=== PATIENT | male | born 1965 | race Caucasian/White ===

== ENCOUNTER 2020-02-10 10:36 | Outpatient (REF) | payer OTHER, SELFPAY ==
--- NOTE | 2020-02-10 10:38 | XR_ITS ---
EXAMINATION: XR KNEE, RIGHT XR KNEE, BILATERAL CLINICAL INFORMATION: Pain in right knee COMPARISON: 12/02/2018 TECHNIQUE: AP standing view of both knees. Lateral and sunrise views of the right knee. FINDINGS: Right knee: No fracture or subluxation. There is severe medial compartment joint space narrowing, similar to prior. Prominent tricompartmental marginal osteophytes. Small joint effusion noted. Overall similar appearance to previous. Left knee: On this single frontal view there is no fracture or subluxation. Severe medial compartment joint space narrowing with medial and lateral marginal osteophytes. XR/XR knee standing BI IMPRESSION: Advanced tricompartmental degenerative changes of the right knee, greatest at the medial compartment with severe narrowing. Small joint effusion. Similar to previous. Advanced degenerative changes of the left knee on this single view, similar to prior.
--- NOTE | 2020-02-10 10:38 | XR_ITS ---
EXAMINATION: XR KNEE, RIGHT XR KNEE, BILATERAL CLINICAL INFORMATION: Pain in right knee COMPARISON: 12/02/2018 TECHNIQUE: AP standing view of both knees. Lateral and sunrise views of the right knee. FINDINGS: Right knee: No fracture or subluxation. There is severe medial compartment joint space narrowing, similar to prior. Prominent tricompartmental marginal osteophytes. Small joint effusion noted. Overall similar appearance to previous. Left knee: On this single frontal view there is no fracture or subluxation. Severe medial compartment joint space narrowing with medial and lateral marginal osteophytes. XR/XR knee RT 3V IMPRESSION: Advanced tricompartmental degenerative changes of the right knee, greatest at the medial compartment with severe narrowing. Small joint effusion. Similar to previous. Advanced degenerative changes of the left knee on this single view, similar to prior.
== END 2020-02-10 10:37 | disposition home or self-care (01) ==
LOC: HO.HOSX 10:36
PROVIDERS: Visit Provider Physician Assistant
DX: M17.0 Bilateral primary osteoarthritis of knee (principal)
CPT/HCPCS: 20610; 73562; 73565; J1020; J1100

== ENCOUNTER → 2020-06-21 12:31 | Outpatient (BNVA) | payer OTHER, SELFPAY | PROVIDERS: PCP Nurse Practitioner Family; Visit Provider Physician Assistant | DX: M17.11 Unilateral primary osteoarthritis, right knee (principal) | CPT/HCPCS: 20610; J1040 ==

== ENCOUNTER → 2020-08-04 13:33 | Outpatient (BNVA) | payer OTHER, SELFPAY | PROVIDERS: PCP Nurse Practitioner Family; Visit Provider Physician Assistant | DX: M17.12 Unilateral primary osteoarthritis, left knee (principal) | CPT/HCPCS: 20610; J1040 ==

== ENCOUNTER 2020-09-18 06:03 | Outpatient (REF) | payer OTHER, SELFPAY ==
--- NOTE | ~2020-09-18 | CT_ITS ---
EXAMINATION: CT ABDOMEN AND PELVIS WITH CONTRAST CLINICAL INFORMATION: Ventral hernia COMPARISON: None TECHNIQUE: Multidetector volumetric images were obtained from the superior aspect of the liver through the pubic symphysis following administration 85 mL of Omnipaque 350 intravenous contrast. Sagittal and coronal reformatted images were obtained on the technologist's workstation. Oral contrast: Yes This CT examination was performed using dose optimization techniques as appropriate, variously including the following: *Automated exposure control *Adjustment of mA and/or kV according to patient size (this includes techniques or standardized protocols for targeted exams where dose is matched to indication/reason for exam; i.e. extremities or head) *Use of iterative reconstruction technique DLP: 1121 mGy-cm FINDINGS: LUNG BASES: The visualized lung bases are unremarkable. LIVER, GALLBLADDER, AND BILIARY TREE: The liver is low in attenuation suggestive of fatty infiltration. The gallbladder is unremarkable with no evidence of radiopaque gallstones, gallbladder wall thickening, or obvious pericholecystic inflammatory changes. PANCREAS: Unremarkable. SPLEEN: Unremarkable. ADRENAL GLANDS: Unremarkable. KIDNEYS AND URETERS: There is a 1.5 cm left renal cyst. No imaging follow-up is indicated. The kidneys are otherwise unremarkable. BLADDER: Unremarkable. GASTROINTESTINAL TRACT: There is mild diverticulosis of the colon. There is a duodenal diverticulum adjacent to the head of the pancreas. The small and large bowel are otherwise unremarkable. The appendix is unremarkable. ABDOMINAL WALL: No significant hernia is appreciated. LYMPH NODES: Normal. VASCULAR: Unremarkable. PELVIC VISCERA: Unremarkable. OSSEOUS STRUCTURES: There are degenerative changes of the spine. CT/CT abdomen pelvis w con IMPRESSION: No hernia seen. Fatty liver. Diverticulosis.
[2020-09-18 07:25] LABS: Alanine Aminotransferase 30 U/L (0-40); Albumin Level 4.2 g/dL (3.5-5.0); Alkaline Phosphatase 107 U/L (39-117); Anion Gap 12 (12-20); Aspartate Amino Transferase 19 U/L (5-37); Bilirubin Total 0.2 mg/dL (0.0-1.0); Blood Urea Nitrogen 20 mg/dL (9-16); Carbon Dioxide 25 mmol/L (22-29); Chloride 108 mmol/L (96-108); Cholesterol 180 mg/dL; Estimated Glomerular Filt Rate > 60; Glucose Fasting 109 mg/dL (60-99); HDL Cholesterol 34 mg/dL; LDL Cholesterol Calculated 72 mg/dl; Sodium 141 mmol/L (135-145); Total Protein 6.6 g/dL (6.5-8.0); Triglycerides 370 mg/dL
[2020-09-18 07:48] LABS: Prostate Specific Antigen Scr 0.32 ng/mL (<0.05-4.0); TSH reflex Free T4 1.08 uIU/mL (0.32-4.0)
[2020-09-18] MEDS: iohexoL 350 MG/ML 100 ML INFUS..BTL IV (09:29)
== END 2020-09-18 06:04 | disposition home or self-care (01) ==
LOC: HO.CT 06:03
PROVIDERS: PCP Nurse Practitioner Family; Visit Provider Nurse Practitioner Family
DX: Z00.00 Encounter for general adult medical examination without abnormal findings (principal); Z12.5 Encounter for screening for malignant neoplasm of prostate; K43.9 Ventral hernia without obstruction or gangrene
CPT/HCPCS: 36415; 74177; 80053; 80061; 84153; 84443; Q9967

== ENCOUNTER → 2021-02-22 10:31 | Outpatient (BNVA) | payer OTHER, SELFPAY | PROVIDERS: PCP Nurse Practitioner Family; Visit Provider Physician Assistant | DX: S49.82XA Other specified injuries of left shoulder and upper arm, initial encounter (principal); X50.0XXA Overexertion from strenuous movement or load, initial encounter | CPT/HCPCS: 73030; 99203 ==

== ENCOUNTER → 2021-03-01 14:54 | Outpatient (BNVA) | payer OTHER, SELFPAY | PROVIDERS: Visit Provider Physician Assistant | DX: S49.92XD Unspecified injury of left shoulder and upper arm, subsequent encounter (principal); X58.XXXD Exposure to other specified factors, subsequent encounter | CPT/HCPCS: 99213 ==

== ENCOUNTER → 2021-03-15 14:33 | Outpatient (BNVA) | payer OTHER, SELFPAY | PROVIDERS: Visit Provider Physician Assistant | DX: S49.92XD Unspecified injury of left shoulder and upper arm, subsequent encounter (principal); X58.XXXD Exposure to other specified factors, subsequent encounter | CPT/HCPCS: 99213 ==

== ENCOUNTER 2021-03-22 05:32 | Outpatient (REF) | payer OTHER, SELFPAY ==
--- NOTE | ~2021-03-22 | XR_ITS ---
EXAMINATION: XR SHOULDER, LEFT CLINICAL INFORMATION: Pain in left shoulder COMPARISON: 02/22/2021 TECHNIQUE: Three views of the left shoulder. FINDINGS: No displaced fracture. Moderate degenerative change in the glenohumeral joint with cartilage space loss and bony osteophyte formation. Severe degenerative change in the AC joint with joint space loss and bony spurring. Soft tissues unremarkable. Visualized left lung are clear. XR/XR shoulder LT min 2V IMPRESSION: Severe AC joint degenerative change. Moderate degenerative change in the glenohumeral joint.
== END 2021-03-22 05:33 | disposition home or self-care (01) ==
LOC: HO.HOSX 05:32
PROVIDERS: Visit Provider Physician Assistant
DX: M25.512 Pain in left shoulder (principal); M19.012 Primary osteoarthritis, left shoulder; S46.002A Unspecified injury of muscle(s) and tendon(s) of the rotator cuff of left shoulder, initial encounter; X50.0XXA Overexertion from strenuous movement or load, initial encounter; Y93.9 Activity, unspecified; Y92.69 Other specified industrial and construction area as the place of occurrence of the external cause; Y99.0 Civilian activity done for income or pay; I10 Essential (primary) hypertension; E78.5 Hyperlipidemia, unspecified; A69.20 Lyme disease, unspecified; F17.210 Nicotine dependence, cigarettes, uncomplicated; J30.2 Other seasonal allergic rhinitis; Z82.49 Family history of ischemic heart disease and other diseases of the circulatory system
CPT/HCPCS: 73030; 99212

== ENCOUNTER 2021-03-26 15:00 | Outpatient (RCR) | payer OTHER, SELFPAY ==
--- NOTE | 2021-02-28 15:50 | MHC.PT.EP ---
[facility] [place] Office [place] Office [place] Office [address] Apurva Zavala [address] [phone] F: [phone] F: [phone] F: [phone] F: [phone] Physical Therapy Plan of Care Date of Evaluation: Date of Surgery: n/a Diagnosis: L shoulder injury Assessment: Patient is a 55 year old male presenting to PT with complaints of pain in his L shoulder. Pt reports onset of pain began 02/20/2021 due to the handle of a bucket breaking while he was carrying it. He presents today with impairments in pain, shoulder ROM, shoulder strength, and posture. 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 Pt expresses mcc goal of getting back to PLOF, and is motivated to work towards this in PT. Clinical presentation today is most consistent with signs and sx associated with L shoulder strain with possible RC involvement and pt will benefit from skilled PT to address the following problems and impairments noted upon evaluation: pain, shoulder ROM, shoulder strength, and posture. These problems limit the patient with the following functional activities: work (mopping, dusting, lifting) and ADLs (dressing). The prescribed treatment plan of care is medically necessary. Co-morbidities of HTN were identified and taken into considerations of plan of care. Pt was educated on HEP, role of PT, prognosis, POC. Frequency and Duration: The patient will be seen 2 x week x 4 weeks Short Term Goals: Pt will demonstrate improved L shoulder AROM in all directions with within 10 degrees of the R in 2 weeks. Pt will demonstrate improved L shoulder strength by 1/3 MMT for improved UE strength in 2 weeks. Pt will demonstrate improved postural awareness by sitting with biomechanically correct posture without cues throughout session to improve overall postural function in 2 weeks. Coat Padder Goals: Pt will demonstrate improved SPADI by 13 points in 4 weeks for improved UE functional mobility. Pt will demonstrate ability to complete all mopping and dusting activities with min to no pain in 4 weeks for improved tolerance to work. Pt will demonstrate improved ability to lift with min to no pain in 4 weeks for improved tolerance to work. Pt will demonstrate ability to complete all dressing ADLs with min to no pain in 4 weeks for return to PLOF. Treatment Plan: Modalities to reduce pain, spasms and effusion. Manual therapy to restore motion and function. Therapeutic exercise to improve strength and flexibility. Neuromuscular re-education for posture and balance. Therapeutic activities to return to functional activities of daily living. Electronically signed by: Katie Moreau, PT, DPT, ATC Please sign and return to therapist. Thank you for your referral.
--- NOTE | 2021-03-29 11:49 | MHC.PT.DC ---
[facility] [place] Office [place] [employer] [facility] [place] Office [address] Jenn[address] Zavala [address] [phone] F: [phone] F: [phone] F: [phone] F: [phone] Physical Therapy Discharge Report Diagnosis: L shoulder injury Date of Surgery: n/a Date of Evaluation: 02/28/21 Date of Discharge: 03/29/21 Treatments to Date: 7 Cancellations to Date: 1 No Shows to Date: 1 Discharge Status: Patient Elected to Stop Discharge Summary: Pt independent w/HEP but con't to demonstrate limited ROM and will be getting MRI. Therapy on hold until results of MRI confirmed if surgical intervention is required. Electronically signed by: Katie Ivey PT, DPT Please sign and return to therapist. Thank you for your referral.
== END 2021-03-29 11:49 | disposition home or self-care (01) ==
LOC: HO.PT 15:00
PROVIDERS: Visit Provider Physician Assistant
DX: S49.92XD Unspecified injury of left shoulder and upper arm, subsequent encounter (principal)
CPT/HCPCS: 97110; 97140; 97161; 97530

== ENCOUNTER 2021-05-04 15:38 | Outpatient (REF) | payer OTHER, SELFPAY | END 2021-05-04 15:39 | disposition home or self-care (01) | LOC: HO.MRI 15:38 | PROVIDERS: Visit Provider Physician Assistant | DX: Z13.89 Encounter for screening for other disorder (principal) ==

== ENCOUNTER → 2021-06-28 10:35 | Outpatient (BNVA) | payer OTHER, SELFPAY | PROVIDERS: PCP Nurse Practitioner Family; Visit Provider Physician Assistant | DX: M17.11 Unilateral primary osteoarthritis, right knee (principal); I10 Essential (primary) hypertension; E78.5 Hyperlipidemia, unspecified; F17.200 Nicotine dependence, unspecified, uncomplicated; J30.2 Other seasonal allergic rhinitis | CPT/HCPCS: 20610; J1040 ==

== ENCOUNTER 2022-11-04 06:07 | Outpatient (REF) | payer OTHER, SELFPAY ==
[2022-11-04 06:17] LABS: MANUAL DIFF FLAG NO
[2022-11-04 07:16] LABS: Basophils Percent Auto 0.6 % (0-2); Eosinophils Absolute Auto 0.2 X10*3/uL (0.0-0.4); Eosinophils Percent Auto 3.2 % (0-4); Hematocrit 47.9 % (42.0-52.0); Hemoglobin 15.4 g/dl (14.0-18.0); Imm Gran Abs Auto 0.03 X10*3/uL (0.00-0.03); Imm Gran Pct Auto 0.5 % (0.0-0.4); Lymphocytes Absolute Auto 1.9 X10*3/uL (1.2-4.9); Lymphocytes Percent Auto 30.2 % (20-40); Mean Corpuscular HGB Conc 32.2 g/dl (31.0-36.0); Mean Corpuscular Hemoglobin 26.9 pg (27.0-33.0); Mean Corpuscular Volume 83.7 fL (80.0-98.0); Mean Platelet Volume 10.9 fL (9.4-12.4); Monocytes Absolute Auto 0.5 X10*3/uL (0.1-1.2); Monocytes Percent Auto 7.7 % (2-11); Neutrophils Absolute Auto 3.6 x10*3/uL (2.0-8.3); Neutrophils Percent Auto 57.8 % (45-73); Platelet Count 154 X10*3/uL (160-400); Red Blood Count 5.72 X10*6/uL (4.60-5.80); Red Cell Distribution Width 13.4 % (11.0-16.0); White Blood Count 6.2 X10*3/uL (4.8-10.8)
[2022-11-04 10:28] LABS: Anion Gap 15 (12-20); Blood Urea Nitrogen 15 mg/dL (9-16); Calcium 9.2 mg/dL (8.4-10.2); Carbon Dioxide 27 mmol/L (22-29); Chloride 104 mmol/L (96-108); Cholesterol 180 mg/dL; Estimated Glomerular Filt Rate > 60; Glucose Fasting 132 mg/dL (60-99); HDL Cholesterol 34 mg/dL; LDL Cholesterol Calculated 91 mg/dl; Potassium 4.5 mmol/L (3.3-5.1); Sodium 141 mmol/L (135-145); TSH reflex Free T4 1.84 uIU/mL (0.32-4.0); Triglycerides 278 mg/dL
== END 2022-11-04 06:08 | disposition home or self-care (01) ==
LOC: HO.LAB 06:07
PROVIDERS: PCP Nurse Practitioner Family; Visit Provider Physician Assistant Medical
DX: I10 Essential (primary) hypertension (principal)
CPT/HCPCS: 36415; 80048; 80061; 84443; 85025

== ENCOUNTER 2022-11-07 16:18 | Outpatient (AMB) | payer OTHER, SELFPAY ==
--- NOTE | 2022-11-07 16:35 | MHC.PC.OV ---
Vital Signs 11/07/22 16:36 Height 5 ft 6 in Weight 315 lb BMI 50.8 BP 158/80 H Blood Pressure Location Rt brachial Position Sitting Pulse 94 Pulse Source Pulse Oximeter Pulse Oximetry (%) 96 Oxygen Delivery Method Room Air Intake Visit Reasons: Annual PE Allergies SEASONAL ALLERGIES Allergy (Intermediate, Uncoded 11/07/22 16:39) RUNNY NOSE NASAL CONGESTION Medication List - Last Reconciled 11/07/22 by CECY Iglesias celecoxib 200 mg PO BID 30 days diclofenac sodium 1% 2 grams topical QID lisinopril 40 mg PO DAILY 30 days ofloxacin 0.3% 2 drps ophthalmic (eye) .4 times Tobacco use date assessed: 11/07/22 Dental Screening Dental Screen Date: 11/07/22 Did you have a dental visit in the last 12 months?: No Did you have a dental problem in the last 6 months where you did not have access to dental care?: No Was dental information given to patient?: No HPI Annual PE HPI Details Pt is here for a PE. Labs were already performed. Colon screen is up to date. Due for PSA, will order. reports dribbling with urinating, nocturia, and reports not completely emptying his bladder. FBS was noted to be 132, though pt reported having a snack . Reinforced importance of 'fasting for 12 hrs, with water only . Pt will repeat this. HTN: increasing lisinopril from 20mg to 40mg. Hx of elevated ferritin, will recheck. [facility] Medical History (Updated 11/07/22 @ 16:59 by CECY Iglesias) Bronchitis Elevated ferritin HTN (hypertension) Hyperlipemia Lyme disease Surgical History History of mandibular surgery Family History Father CVD (cardiovascular disease) History of heart attack Mother No problems noted. Brother No problems noted. Sister No problems noted. Sister No problems noted. Sister No problems noted. 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 [employer] Cognitive needs: No Hearing needs: No Vision needs: No Review of Systems Const Denies chills and Denies fever(s) Eyes Denies blurry vision ENT Denies vertigo, Denies dizziness and Denies sore throat Card Denies chest pain at rest, Denies chest pain with activity, Denies diaphoresis, Denies dyspnea and Denies dyspnea on exertion Resp Denies cough, Denies dyspnea, Denies dyspnea on exertion and Denies wheezing GI Denies abdominal pain, Denies melena, Denies hematochezia, Denies constipation, Denies diarrhea and Denies loose stools Denies hematuria Musc Denies numbness and Denies tingling Skin/Breast Denies lesions Neuro Denies vertigo, Denies dizziness, Denies numbness and Denies tingling Psych Denies anxiety, Denies depression, Denies homicidal ideation, Denies suicidal ideation and Denies other (substance abuse) Aller/Immun Denies wheezing Physical exam (Primary Care) Vital Signs: Last Vital Signs Pulse 94 11/07/22 16:36 BP 158/80 H 11/07/22 16:36 Pulse Ox 96 11/07/22 16:36 Oxygen Delivery Method Room Air 11/07/22 16:36 BMI result Body Mass Index 50.8 Tobacco/Smoking Status: Tobacco use Status Tobacco use date assessed 11/07/22 11/07/22 16:42 Patient Tobacco Use Status Current everyday Tobacco 11/07/22 16:42 e-Cigarette/Vaping Use Former Use 11/07/22 16:42 Const General: cooperative Nutritional Appearance: obese morbidly obese Orientation/consciousness: patient oriented x3 HENMT Head: Yes normal to inspection, Yes normocephalic and Yes atraumatic Ears: TM's normal bilaterally Eyes General: appearance normal, both eyes and all related structures Alignment and Position: alignment normal and position normal Neck Neck: Yes normal visual inspection and Yes no lymphadenopathy Thyroid: Thyroid normal Resp Effort & Inspection: normal respiratory effort Auscultation: clear to auscultation bilaterally Cardio Rate: regular rate Rhythm: regular rhythm Heart sounds: S1 normal heart sound present, S2 normal heart sound present and no murmurs GI Palpation (GI): Soft to palpation and nontender Auscultation: normal bowel sounds Other: MAYRA: difficult to perform. Male General Exam: Yes normal external exam Penis: normal penis Scrotum: scrotum normal, testes descended bilaterally and no inguinal hernias Testes: no testicular mass Skin Rashes: no rashes Neuro General: patient oriented x3, moves all extremities, no focal motor deficits and deep tendon reflexes 2+ bilaterally Romberg Test: Negative Psych Appearance: grossly normal Mental Status: mental status grossly normal Speech and movement: Normal speech and movement present Affect: normal affect Attitude: cooperative Thought process: Normal thought process present Thought content: Normal thought content present Insight: Good insight present (Psych) Judgement: Good judgement present (Psych) Assessment and Plan Assessment & Plan (1) Physical exam: Code(s): Z00.00 - Encounter for general adult medical examination without abnormal findings (2) Elevated fasting blood sugar: Code(s): R73.01 - Impaired fasting glucose (3) Elevated ferritin: Code(s): R79.89 - Other specified abnormal findings of blood chemistry (4) Screening for prostate cancer: Code(s): Z12.5 - Encounter for screening for malignant neoplasm of prostate Plan The patient agreed to the use of a biomedical engineering professor for this encounter. Scribed for RANDALL Jain- by Francine Bejarano biomedical engineering professor, on 11/07/2022 at 16:55 EST. Orders: Orders Ferritin Today R79.89 - Other specified abnormal findings of blood chemistry IRON PROFILE Today R79.89 - Other specified abnormal findings of blood chemistry Prostate Specific Antigen Scr Today Z12.5 - Encounter for screening for malignant neoplasm of prostate Comprehensive [place]. Panel Fast Today R73.01 - Impaired fasting glucose Medications: Changed From lisinopril 20 mg PO DAILY 30 days 30 tabs 3RF I10 - Essential (primary) hypertension To lisinopril 40 mg PO DAILY 30 tabs 3RF 30 days I10 - Essential (primary) hypertension Coding Level of Care Code Est Pt Prev Care 40-64y(90178) Diagnoses Physical exam Z00.00 Elevated fasting blood sugar R73.01 Elevated ferritin R79.89 Screening for prostate cancer Z12.5
[2022-11-07 16:36] VITALS: BP 158/80; PULSE 94; O2SAT 96; BMI 50.8
== END 2022-11-07 17:29 | disposition home or self-care (01) ==
LOC: HO.HMGC 16:18
PROVIDERS: PCP Nurse Practitioner Family; Visit Provider Nurse Practitioner Family
DX: Z00.00 Encounter for general adult medical examination without abnormal findings (principal); R73.01 Impaired fasting glucose; R79.89 Other specified abnormal findings of blood chemistry; Z12.5 Encounter for screening for malignant neoplasm of prostate
CPT/HCPCS: 99396

== ENCOUNTER 2022-11-12 06:05 | Outpatient (REF) | payer OTHER, SELFPAY ==
[2022-11-12 07:39] LABS: Alanine Aminotransferase 49 U/L (0-40); Albumin Level 4.3 g/dL (3.5-5.0); Alkaline Phosphatase 79 U/L (39-117); Anion Gap 13 (12-20); Aspartate Amino Transferase 33 U/L (5-37); Bilirubin Total 0.6 mg/dL (0.0-1.0); Blood Urea Nitrogen 18 mg/dL (9-16); Calcium 9.3 mg/dL (8.4-10.2); Carbon Dioxide 27 mmol/L (22-29); Chloride 104 mmol/L (96-108); Estimated Glomerular Filt Rate > 60; Glucose Fasting 133 mg/dL (60-99); Iron 104 mcg/dL (45-160); Percent Iron Saturation 37 % (15-50); Potassium 3.8 mmol/L (3.3-5.1); Sodium 140 mmol/L (135-145); Total Iron Binding Capacity 282 mcg/dL (228-428); Total Protein 7.1 g/dL (6.5-8.0); Unsaturated Iron Binding 178 ug/dL
[2022-11-12 07:50] LABS: Prostate Specific Antigen Scr 0.28 ng/mL (<0.05-4.0)
[2022-11-12 07:58] LABS: Ferritin 368 ng/mL (20-250)
== END 2022-11-12 06:06 | disposition home or self-care (01) ==
LOC: HO.LAB 06:05
PROVIDERS: PCP Nurse Practitioner Family; Visit Provider Nurse Practitioner Family
DX: Z12.5 Encounter for screening for malignant neoplasm of prostate (principal); R73.01 Impaired fasting glucose; R79.89 Other specified abnormal findings of blood chemistry
CPT/HCPCS: 36415; 80053; 82728; 83540; 84153

== ENCOUNTER → 2022-12-04 14:30 | Outpatient (REF) | payer OTHER, SELFPAY ==
--- NOTE | 2022-12-04 14:33 | CA_ITS ---
Transthoracic Echocardiogram Patient (Last, First, Middle): Raheem Diaz M Gender: Male Date of : 1965 Age: 57 Procedure Date: 12/04/2022 Procedure Type: Transthoracic Echocardiogram Location: OP Height: 175.26 cm Weight: 142.43 kg BSA: 2.50 m2 Heart Rate: bpm Offset Press Assistant: MOSES/CRISTI Referring MD: Shine Elizabeth [facility] Symptoms: E66.01 - Morbid (severe) obesity due to excess calories Study Quality: Fair ECG Rhythm: Sinus Conclusions: - The left ventricular systolic function is normal. The calculated ejection fraction is 63% by biplane method. - No obvious valvular pathology seen on this study. Findings Procedure Information Contrast agent, definity, is being given per protocol without apparent complications. The quality of the study was technically difficult. The study quality is limited by patients body habitus. Left Ventricle Normal left ventricular cavity size. There is mildly increased left ventricular wall thickness. The left ventricular systolic function is normal. The calculated ejection fraction is 63% by biplane method. There is no evidence of regional wall motion abnormalities. Evidence suggests grade I (mild) diastolic dysfunction. There is moderate septal asymmetric hypertrophy. Right Ventricle Normal right ventricular cavity size and systolic function. Atria Both atria are normal in size. Aortic Valve There is a normal trileaflet aortic valve. There is no aortic valve stenosis. There is trace (trivial) aortic valve regurgitation. Mitral Valve There is mild anterior mitral leaflet thickening. There is no mitral valve regurgitation. There is no mitral valve stenosis. Pulmonic Valve The pulmonic valve is likely normal. Tricuspid Valve Normal tricuspid valve structure. There is trace tricuspid valve regurgitation. Tricuspid regurgitation envelope is inadequate for calculation of right ventricular systolic pressure. Great Vessels The asc aorta is normal in size. Venous The inferior vena cava was not well visualized. The inferior vena cava is normal in size. Pericardium/Pleural There is no evidence of pericardial effusion. Prior Study Comparison No prior study available for comparison. Recommendations, Care & Conclusions No obvious valvular pathology seen on this study. Measurements 2D Linear Measurements IVSd: 1.38 0.6-0.9/0.6-1.0 cm LVIDd: 5.70 3.9-5.3/4.2-5.9 cm LVIDd Index: 2.28 2.4-3.2/2.2-3.1 cm/m2 LVIDs: 3.45 2.0-3.6 cm LVPWd: 1.10 0.7-1.1 cm LA Diam: 3.60 2.7-3.8/3.0-4.0 cm LAIDs Index: 1.44 1.5-2.3 cm/m2 LV Mass: 376.64 67-162/88-224 g LV Mass Index: 150.65 43-95/49-115 g/m2 LVOT Diam: 2.60 3.0+(-)1.3 cm 2D Systolic Function EF 4C: 59.50 >55% EF 2C: 65.40 >55% EF BiP: 62.50 >55% Mitral Valve MV Pk E: 0.77 MV PK A: 0.89 MV Decel Time: 209.00 E/A: 0.90 E'Lateral: 6.64 E'Medial: 5.00 E/E' Med: 15.40 E/E' Lat: 11.60 PHT: 61.00 MVA PHT: 3.61 Decel Wise: 3.69 Aortic Valve AoV Pk Hemal: 1.21 AoV Pk Grad: 6.00 ELAN: 4.85 LVOT LVOT Pk Hemal: 1.12 LVOT Mn Hemal: 0.77 LVOT VTI: 0.22 LVOT Pk Grad: 5.00 LVOT Mn Grad: 3.00 LVOT Diam: 2.60 LVOT Area: 5.31 Diastolic Function MV Pk E: 0.77 MV Pk A: 0.89 E/A: 0.90 E'Medial: 5.00 E/E' Med: 15.40 E' Laterial: 6.64 E/E' Lat: 11.60 Right Ventricle TAPSE (mm): 23.80 TVS' Hemal: 15.90 Tricuspid Valve RA Press: 3.00 Great Vessels Aorta Sinus of Valsalva: 3.10 2.0-3.5 cm Ao Asc: 3.50 2.1-3.4 cm Pulmonary Veins Pulm Vein S/D 1.70 Pulmonary Valve PV Pk Hemal: 1.11 Peak PV Grad: 5.00 Updated in Other Vendor System with Status of Final Denny Smiley MD electronically signed on 12/04/2022 4:37:48 PM with status of Final
== END ==
LOC: HO.CARD 14:30
PROVIDERS: Visit Provider Nurse Practitioner Family
DX: E66.01 Morbid (severe) obesity due to excess calories (principal); G47.33 Obstructive sleep apnea (adult) (pediatric)
CPT/HCPCS: 93306; Q9957

== ENCOUNTER → 2022-12-04 14:33 | Outpatient (BNV) | payer OTHER, SELFPAY | PROVIDERS: Visit Provider Internal Medicine | DX: I34.89 Other nonrheumatic mitral valve disorders (principal) | CPT/HCPCS: 93306 ==

== ENCOUNTER 2023-01-10 | Outpatient (REF) | payer OTHER, SELFPAY | END 2023-01-10 00:01 | disposition home or self-care (01) | LOC: CF | PROVIDERS: Visit Provider Physician Assistant Medical | DX: F17.210 Nicotine dependence, cigarettes, uncomplicated (principal) | CPT/HCPCS: G0296 ==

== ENCOUNTER 2023-01-10 14:39 | Outpatient (AMB) | payer OTHER, SELFPAY ==
--- NOTE | 2023-01-10 07:38 | MHC.OFFVIS ---
Intake Intake Visit Reasons: LDCT SD Allergies SEASONAL ALLERGIES Allergy (Intermediate, Uncoded 11/07/22 16:39) RUNNY NOSE NASAL CONGESTION HPI LDCT SD HPI Details Initial telehealth phone visit for this 57yo smoker with a 20PYH. Patient has been smoking since age 16 for 41 years at 1/2ppd. Now down to 3cig/day . Denies marijuana use. Denies second hand smoke exposure. Reports exposure to chemicals like diesel fumes. 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 . Denies known family history of lung cancer. Denies personal history of cancers. Denies chest CT in last year. . Denies recent travel outside the [place]. Denies recent respiratory illness or recent hospitalization for respiratory issues. Reports testing positive for COVID in 2019. Admits receiving COVID Vaccine. x 2. . Denies fever, chills, new/worsening cough, hemoptysis, hoarseness or dysphagia. Denies significant chest pain, significant dyspnea or unintentional weight loss. Patient Lung Cancer Screening Questionnaire reviewed with patient by provider. . Shared Decision Making Completed. Patient meets criteria. Discussed in detail with patient, the risk vs benefit of LDCT screening. Patient consents to proceed with scan. Discussed smoking cessation. [facility] Medical History (Updated 01/10/23 @ 13:36 by Jenni Edgar PA-C) Family history of cardiovascular disease Elevated ferritin HTN (hypertension) High triglycerides ALPHONSE (obstructive sleep apnea) Morbid obesity Nicotine dependence, cigarettes, uncomplicated Fatty liver History of colon polyps (~2018) Osteoarthritis of both knees History of Lyme disease Surgical History (Updated 12/19/22 @ 12:32 by Jenni Edgar PA-C) History of colonoscopy History of mandibular surgery Family History (Updated 12/19/22 @ 12:35 by Jenni Edgar PA-C) Father CVD (cardiovascular disease) History of heart attack, Onset Age: 50 Mother No problems noted. Brother No problems noted. Sister No problems noted. Sister No problems noted. Sister No problems noted. 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 - Patient meets criteria for LDCT for lung cancer screening purposes and is asymptomatic. - Smoking cessation counseling offered. Patients can always call [phone]. - Will arrange for a LDCT scan of the chest for screening purposes at [facility]. - Risks, benefits, and alternatives were discussed in detail and the patient agrees to proceed. - Risks discussed include but are not limited to: radiation exposure, anxiety during testing and while awaiting results, false negatives, false positives and possibility of additional intervention such as further imaging or surgical procedures for benign disease. - Benefits are obviously detection of lung cancer at an early stage which can lead to improved outcomes. - Discussed the importance of screening program compliance with adherence to yearly LDCT scan as scheduled - or sooner interval scans for personalized screening regimen. - Discussed follow up plan. Our office will send a letter discussing results and if needed set up phone call and office visit based on CT findings. - Patient educated on results categorization and the management decisions for suspicious findings potentially found on the screening LDCT scan. Any patient with a Lung RADS score of 3 or 4 will be reviewed by a multidisciplinary team at [facility] to form a plan of action in regards to scan findings. - If further work up is warranted for a suspicious lung finding this will be followed by the Lung Cancer Screening program in conjunction with the Thoracic Surgery Department at [facility]. - A copy of the office note and LDCT will be sent to the patient's PCP - as well as documentation on any associated further plans of care. - Incidental findings on LDCT are the PCP's responsibility. These findings are indicated with an S finding on the LDCT Assessment. A note discussing the findings will be sent to the PCP who is then responsible for further management. - All questions answered.? Telehealth Telehealth Location of provider rendering services: practice address Location of patient: address on file Patient Identification confirmed using: Name, : Yes Telehealth method: voice only Patient verbally consented to treatment: Yes Patient verbally consented to billing insurance company: Yes Patient informed of any privacy concerns related to visit: Yes Minutes spent on Phone/Video with Pt.: 15 Coding Level of Care Code Lung Cancer Screening G0296 Diagnoses Nicotine dependence, cigarettes, uncomplicated F17.210
== END 2023-01-10 14:40 | disposition home or self-care (01) ==
LOC: HO.HMS 14:39
PROVIDERS: Visit Provider Physician Assistant Medical
DX: F17.210 Nicotine dependence, cigarettes, uncomplicated (principal)
CPT/HCPCS: G0296

== ENCOUNTER 2023-01-21 13:48 | Outpatient (AMB) | payer OTHER, SELFPAY ==
--- NOTE | 2023-01-21 14:09 | A.OFFVIS_ITS ---
Intake Vital Signs 01/21/23 14:10 Height 5 ft 9 in Weight 316 lb 2 oz BMI 46.7 BP 150/90 H Blood Pressure Location Lt brachial Position Sitting Pulse 98 Pulse Source Pulse Oximeter Pulse Oximetry (%) 99 Oxygen Delivery Method Room Air Intake Visit Reasons: I-CHILD PSYCHOLOGIST: ALPHONSE - LVM Intake Note: Npt for ALPHONSE Allergies SEASONAL ALLERGIES Allergy (Intermediate, Uncoded 11/07/22 16:39) RUNNY NOSE NASAL CONGESTION HPI HPI Comments History of Present Illness Details 57 y/o male patient presents for new in- person visit to manage ALPHONSE. Pt was diagnosed with ALPHONSE in 2000 and has been using CPAP. He had receiced new CPAP 10 years ago, but his insurance stopped cover the supplies. The CPAP machine start make weird noise and now he uses his old, original CPAP. It is more than 20 years old. He sleeps well with CPAP and his snoring and daytime sleepiness has improved. He can't sleep without CPAP. He might gained more than 30 lb since the last sleep study. His current home care company is [facility] [facility]. Sleep questionnaire: Have you ever been diagnosed with a sleep disorder? Yes, severe degree of sleep apnea. Have you ever had a sleep study in the past? Yes. Have you ever been treated for a sleep disorder? Yes, CPAP. Do you take medications for a sleep disorder? No. Do you snore? Yes. Do you wake up gasping at night? No with CPAP. Do you have episodes of apneas? Yes. If yes, are they witnessed? Yes. Do you have episodes of nocturnal chest pain or dyspnea? No. Do you have difficulty initiating sleep? No. Do you have difficulty maintaining sleep? No. Do you wake up tired? No with CPAP. Do you have headaches upon awakening? No. Do you wake up with dry mouth or throat? Yes. Do you have GERD? No. Do you have nocturia? Yes, sometimes. Do you have nocturnal leg cramps? No. Do you have symptoms of restless legs? No. Do you act out your dreams? No. Sleep hygiene questionnaire: What is your usual sleep routine? Usual bedtime is at 9:30 -10 pm; Usual wake up time is at 3:30 am. Do you take naps? Sometimes. Is your sleep environment cool, dark, and quiet? Yes. Do you exercise? Yes, sometimes. Do you take caffeine or other stimulants? Coffee in the morning. Do you use electronics in bed? No. What is your work schedule? 5 am to 1 :30 am. Hypersomnolence questionnaire: Do you have daytime tiredness or fatigue? No. Do you easily fall asleep when inactive? No. Have you ever had episodes of sudden weakness? No. Have you ever had episodes of sudden weakness associated with strong emotions? No. PFSH Medical History (Updated 01/21/23 @ 14:35 by Noy Garcia CNP) Family history of cardiovascular disease Elevated ferritin HTN (hypertension) High triglycerides ALPHONSE (obstructive sleep apnea) Morbid obesity Nicotine dependence, cigarettes, uncomplicated Fatty liver History of colon polyps (~2018) Osteoarthritis of both knees History of Lyme disease Surgical History History of colonoscopy History of mandibular surgery Family History Father CVD (cardiovascular disease) History of heart attack, Onset Age: 50 Mother No problems noted. Brother No problems noted. Sister No problems noted. Sister No problems noted. Sister No problems noted. 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 [employer] Cognitive needs: No Hearing needs: No Vision needs: No Review of Systems Const All systems reviewed & are unremarkable except as noted in HPI and below ENT Reports Normal hearing present Neuro Reports Normal hearing present Physical Exam Vital Signs: Last Vital Signs Pulse 98 01/21/23 14:10 BP 150/90 H 01/21/23 14:10 Pulse Ox 99 01/21/23 14:10 Oxygen Delivery Method Room Air 01/21/23 14:10 BMI result Body Mass Index 46.7 Const General: cooperative Nutritional Appearance: obese Orientation/consciousness: patient oriented x3 Neck Neck: Yes full ROM and Yes supple Resp Effort & Inspection: normal respiratory effort and able to speak in complete sentences Neuro General: patient oriented x3 Cranial nerves: Yes Bilaterally intact EOM present, Yes Normal facial strength present, Yes Midline tongue present, Yes Symmetric palate elevation present, Yes Normal hearing present, Yes Ability to bilaterally rotate head present and Yes Ability to bilaterally elevate shoulders present Cognition (Neuro): normal cognition Motor exam (neuro): 5/5 motor strength present throughout, Pronator motor function not present and no tremor noted Psych Appearance: grossly normal Mental Status: mental status grossly normal Speech and movement: Normal speech and movement present Affect: normal affect Attitude: cooperative Assessment & Plan Assessment & Plan (1) ALPHONSE (obstructive sleep apnea): Comment: Had hx of severe degree of sleep apnea. Code(s): G47.33 - Obstructive sleep apnea (adult) (pediatric) (2) Morbid obesity: Comment: (BMI >50 - 10/2022) Code(s): E66.01 - Morbid (severe) obesity due to excess calories Plan Pt is advised to undergo in lab sleep study to assess for sleep apnea. Will f/u with pt after study to discuss results and appropriate treatment options. Continue to use his old CPAP until he has new CPAP. Wt reduction advised. Pt to call with any worsening concerns or questions. Orders: Orders RT PSG in-lab sleep study 01/21/23 E66.01 - Morbid (severe) obesity due to excess calories, G47.33 - Obstructive sleep apnea (adult) (pediatric) Coding Level of Care Code New Pt Level 3 (10919) Diagnoses ALPHONSE (obstructive sleep apnea) G47.33 Morbid obesity E66.01
[2023-01-21 14:10] VITALS: BP 150/90; PULSE 98; O2SAT 99; BMI 46.7
== END 2023-01-21 14:40 | disposition home or self-care (01) ==
PROVIDERS: PCP Nurse Practitioner Family; Visit Provider Nurse Practitioner Family
DX: G47.33 Obstructive sleep apnea (adult) (pediatric) (principal); E66.01 Morbid (severe) obesity due to excess calories
CPT/HCPCS: 99203

== ENCOUNTER → 2023-01-21 13:48 | Outpatient (BNVA) | payer OTHER, SELFPAY | PROVIDERS: PCP Nurse Practitioner Family; Visit Provider Nurse Practitioner Family ==

== ENCOUNTER → 2023-02-09 20:30 | Outpatient (REF) | payer OTHER, SELFPAY | LOC: HO.SL 20:30 | PROVIDERS: PCP Nurse Practitioner Family; Visit Provider Nurse Practitioner Family | DX: G47.33 Obstructive sleep apnea (adult) (pediatric) (principal); E66.01 Morbid (severe) obesity due to excess calories | CPT/HCPCS: 95810 ==

== ENCOUNTER → 2023-02-09 22:56 | Outpatient (BNV) | payer OTHER, SELFPAY | PROVIDERS: PCP Nurse Practitioner Family; Visit Provider Psychiatry & Neurology Neurology | DX: G47.33 Obstructive sleep apnea (adult) (pediatric) (principal) | CPT/HCPCS: 95810 ==

== ENCOUNTER 2023-05-29 13:43 | Outpatient (AMB) | payer OTHER, SELFPAY ==
--- NOTE | 2023-05-29 13:50 | A.OFFVIS_ITS ---
Intake Vital Signs 05/29/23 13:57 Height 5 ft 9 in Weight 313 lb 8 oz BMI 46.3 BP 144/70 H Blood Pressure Location Lt brachial Position Sitting Pulse 90 Pulse Source Pulse Oximeter Pulse Oximetry (%) 95 Oxygen Delivery Method Room Air Intake Visit Reasons: 4month f/u ALPHONSE-LVM Intake Note: Patient presents for 4 month f/u. Allergies SEASONAL ALLERGIES Allergy (Intermediate, Uncoded 11/07/22 16:39) RUNNY NOSE NASAL CONGESTION HPI HPI Comments History of Present Illness Details 57 y/o male patient presents for follow up of sleep study. Pt underwent split night sleep study. The baseline portion of the study was significant for severe degree of sleep apena. The AHI was 85/hr and oxygen winter was 82%. Pt started BiPAP at 20/16 cmH2O. Pt reports he sleeps much better with new BiPAP, wakes up refreshed, feel great in the morning. Daytime tiredness has resolved. The BiPAP compliance and therapy response (02/24/23-05/24/23) reviewed. The usage days 77% and the average usage hours 7 hrs. The AHI was 4.7/hr. Pt still has his old CPAP and uses the old CPAP when he travels. [facility] Medical History (Updated 01/21/23 @ 14:35 by Noy Garcia CNP) Family history of cardiovascular disease Elevated ferritin HTN (hypertension) High triglycerides ALPHONSE (obstructive sleep apnea) Morbid obesity Nicotine dependence, cigarettes, uncomplicated Fatty liver History of colon polyps (~2018) Osteoarthritis of both knees History of Lyme disease Surgical History History of colonoscopy History of mandibular surgery Family History Father CVD (cardiovascular disease) History of heart attack, Onset Age: 50 Mother No problems noted. Brother No problems noted. Sister No problems noted. Sister No problems noted. Sister No problems noted. 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 [employer] Cognitive needs: No Hearing needs: No Vision needs: No Review of Systems Const All systems reviewed & are unremarkable except as noted in HPI and below ENT Reports Normal hearing present Neuro Reports Normal hearing present Physical Exam Vital Signs: Last Vital Signs Pulse 90 05/29/23 13:57 BP 144/70 H 05/29/23 13:57 Pulse Ox 95 05/29/23 13:57 Oxygen Delivery Method Room Air 05/29/23 13:57 BMI result Body Mass Index 46.3 Const General: cooperative Nutritional Appearance: obese Orientation/consciousness: patient oriented x3 Neck Neck: Yes full ROM and Yes supple Resp Effort & Inspection: normal respiratory effort and able to speak in complete sentences Neuro General: patient oriented x3 Cranial nerves: Yes Bilaterally intact EOM present, Yes Normal facial strength present, Yes Midline tongue present, Yes Symmetric palate elevation present, Yes Normal hearing present, Yes Ability to bilaterally rotate head present and Yes Ability to bilaterally elevate shoulders present Cognition (Neuro): normal cognition Motor exam (neuro): 5/5 motor strength present throughout, Pronator motor function not present and no tremor noted Psych Appearance: grossly normal Mental Status: mental status grossly normal Speech and movement: Normal speech and movement present Affect: normal affect Attitude: cooperative Assessment & Plan Assessment & Plan (1) ALPHONSE (obstructive sleep apnea): Comment: Had hx of severe degree of sleep apnea. Code(s): G47.33 - Obstructive sleep apnea (adult) (pediatric) Plan Continue to use BiPAP at 20/[id number] as patient experiences good clinical effects, better quality sleep and daytime sleepiness has resolved. Stressed compliance, use nightly and more than 4 hrs. Wt reduction advised. Coding Level of Care Code Est Pt Level 3 (87997) Diagnoses ALPHONSE (obstructive sleep apnea) G47.33
[2023-05-29 13:57] VITALS: BP 144/70; PULSE 90; O2SAT 95; BMI 46.3
== END 2023-05-29 14:17 | disposition home or self-care (01) ==
LOC: HO.HSMS 13:45
PROVIDERS: PCP Nurse Practitioner Family; Visit Provider Nurse Practitioner Family
DX: G47.33 Obstructive sleep apnea (adult) (pediatric) (principal)
CPT/HCPCS: 99213

== ENCOUNTER → 2023-05-29 13:43 | Outpatient (BNVA) | payer OTHER, SELFPAY | PROVIDERS: PCP Nurse Practitioner Family; Visit Provider Nurse Practitioner Family | DX: G47.33 Obstructive sleep apnea (adult) (pediatric) (principal); E66.01 Morbid (severe) obesity due to excess calories ==

== ENCOUNTER 2023-08-25 09:12 | Outpatient (AMB) | payer OTHER, SELFPAY ==
[2023-08-25 09:52] VITALS: BP 200/100; PULSE 123; TEMP 38.5; O2SAT 95; BMI 44.4
--- NOTE | 2023-08-25 09:52 | AM.OFFWIN_ITS ---
Intake Vital Signs 08/25/23 09:52 Height 5 ft 9 in Weight 136.531 kg BMI 44.4 BP 200/100 H Blood Pressure Location Lt brachial Position Sitting Pulse 123 H Pulse Source Pulse Oximeter Temp 101.3 F H Temp Source Temporal Artery Scan Pulse Oximetry (%) 95 Oxygen Delivery Method Room Air Intake Visit Reasons: EP chills body aches runny nose Intake Note: pt is here today for chills body aches runny nose stared friday Patient Tobacco Use Status: Current everyday Tobacco user Allergies SEASONAL ALLERGIES Allergy (Intermediate, Uncoded 08/25/23 09:57) RUNNY NOSE NASAL CONGESTION Do you need a note to return to daycare/school/sports/work: Yes HPI EP chills body aches runny nose HPI Details Patient presents with 3 days of nausea, vomiting, body aches, rhinorrhea. He is feeling weak, headache, having sweats and increased heart rate today. is with him who is not ill. He denies wounds, productive cough, hemoptysis, hematemesis or melena or hematochezia. Denies abdominal pain [facility] Medical History (Updated 08/25/23 @ 10:45 by ALEX Romero) Family history of cardiovascular disease Elevated ferritin HTN (hypertension) High triglycerides ALPHONSE (obstructive sleep apnea) Morbid obesity Nicotine dependence, cigarettes, uncomplicated Fatty liver History of colon polyps (~2018) Osteoarthritis of both knees History of Lyme disease Surgical History History of colonoscopy History of mandibular surgery Family History Father CVD (cardiovascular disease) History of heart attack, Onset Age: 50 Mother No problems noted. Brother No problems noted. Sister No problems noted. Sister No problems noted. Sister No problems noted. 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 [employer] Cognitive needs: No Hearing needs: No Vision needs: No Review of Systems Const All systems reviewed & are unremarkable except as noted in HPI and below Reports as per HPI ENT Reports as per HPI Card Reports as per HPI, Denies chest pain, Denies chest pain at rest, Reports diaphoresis, Denies syncope, Reports rapid heart rate and Denies pedal edema Resp Reports as per HPI GI Reports as per HPI Skin/Breast Reports as per HPI Neuro Denies syncope Physical Exam Vital Signs: Last Vital Signs Temp 101.3 F H 08/25/23 09:52 Pulse 123 H 08/25/23 09:52 BP 200/100 H 08/25/23 09:52 Pulse Ox 95 08/25/23 09:52 Oxygen Delivery Method Room Air 08/25/23 09:52 BMI result Body Mass Index 44.4 Const Other: A&O x3 but patient is diaphoretic and pale. HEENT Ears: TM's normal bilaterally General nose exam: Normal external nose present Face and sinus: Yes normal facial exam Mouth: Normal oral and palatal mucosa present Neck Neck: Yes full ROM and Yes no lymphadenopathy Resp Effort & Inspection: normal respiratory effort and able to speak in complete sentences Cardio Rhythm: regular rhythm (Tachycardia with occasional skipped beat) Heart sounds: S1 normal heart sound present, S2 normal heart sound present, no murmurs and no rubs Peripheral pulses: Peripheral pulses 2+ throughout Extrem General: Yes normal to inspection, Yes full ROM, Yes capillary refill normal and Yes no pedal edema Assessment & Plan Assessment & Plan (1) HTN (hypertension): Code(s): I10 - Essential (primary) hypertension Qualifiers: Hypertension type: other secondary hypertension Qualified Code(s): I15.8 - Other secondary hypertension Plan: Recheck of BP at office is 180/70. (2) Tachycardia: Code(s): R00.0 - Tachycardia, unspecified (3) Febrile illness: Code(s): R50.9 - Fever, unspecified Plan Given patient's constellation of symptoms and his significant cardiovascular risk factors advised he and his to proceed to ED patient is stable and can proceed by car, is driving. We will call ahead expect to ED. likely dehydrated from viral illness and will need IV fluids with possible electrolyte replacement however cardiac etiology can not be completely ruled out, EKG was normal today except for sinus tachycardia with PAC. Coding Level of Care Code Est Pt Level 4 (12875) Diagnoses Other secondary hypertension I15.8 Hypertension type: other secondary hypertension Tachycardia R00.0 Febrile illness R50.9
== END 2023-08-25 10:39 | disposition home or self-care (01) ==
PROVIDERS: PCP Nurse Practitioner Family; Visit Provider Physician Assistant
DX: I15.8 Other secondary hypertension (principal); R00.0 Tachycardia, unspecified; R50.9 Fever, unspecified
CPT/HCPCS: 93000; 99214

== ENCOUNTER 2023-08-25 10:55 | Emergency (ER) | payer OTHER, SELFPAY ==
--- NOTE | ~2023-08-25 | XR_ITS ---
EXAMINATION: XR CHEST CLINICAL INFORMATION: Dyspnea COMPARISON: Chest 12/17/2017 TECHNIQUE: Frontal view of the chest was obtained. FINDINGS: The lungs are expanded and clear of acute process. Heart size is normal. Pulmonary vascularity is normal. There is mild elevation of left hemidiaphragm compared to previous exam. There is mild spondylosis dorsal spine. XR/XR chest 1V IMPRESSION: No acute cardiopulmonary process seen. Mild elevation of left hemidiaphragm compared to previous exam.
[2023-08-25 12:05] VITALS: BP 174/121; PULSE 111; RESP 18; TEMP 38.5; O2SAT 100; BMI 44.3
--- NOTE | 2023-08-25 12:07 | ECG_ITS ---
Test Reason : HYPERTENSIVE Blood Pressure : / mmHG Vent. Rate : 096 BPM Atrial Rate : 096 BPM P-R Int : 156 ms QRS Dur : 100 ms QT Int : 354 ms P-R-T Axes : -10 -14 044 degrees QTc Int : 447 ms Normal sinus rhythm Normal ECG When compared with ECG of 05-JAN-2003 06:43, No significant change was found Referred By: Boo Hernandez Electronically Signed By:RAJNI VELOZ MD
--- NOTE | 2023-08-25 12:07 | ED.GENADULT ---
HPI - General Adult General Chief complaint: Headache Stated complaint: high bp Time Seen by Provider: 08/25/23 18:42 Source: patient Mode of arrival: ambulatory Limitations: no limitations History of Present Illness HPI narrative: This is a 49-year-old man with a past medical history of hypertension, hypertriglyceridemia, ALPHONSE, fatty liver, smoker who presents for evaluation of fever. Patient states that he developed myalgias and chills 2 days prior to presentation. He states associated congestion, rhinorrhea and headache. He states no cough, sputum production or hemoptysis. He states feeling somewhat short of breath. He states no vision changes, hearing changes, ear pain, sore throat, neck pain, back pain, falls, trauma, chest pain, abdominal pain, nausea/vomiting, diarrhea, dysuria or urinary frequency/urgency. Related Data Home Medications ?Medication ?Instructions ?Recorded ?Confirmed diclofenac sodium 1 % topical gel 2 g topical QID 06/28/21 11/07/22 Previous Rx's ?Medication ?Instructions ?Recorded ofloxacin 0.3 % eye drops 2 drp ophthalmic (eye) .4 times 01/18/21 #10 mL sildenafil 50 mg tablet 50 mg PO DAILY PRN sexual activity 11/08/22 #14 tabs blood sugar diagnostic (FreeStyle #100 ea 11/13/22 Lite Strips) blood-glucose meter (FreeStyle #1 ea 11/13/22 Lite Meter kit) lancets 28 gauge (FreeStyle #100 ea 11/13/22 Lancets) lisinopril 40 mg tablet 40 mg PO DAILY #90 tabs 02/02/23 celecoxib 200 mg capsule 200 mg PO BID 30 days #60 caps 04/20/23 atorvastatin 20 mg tablet 20 mg PO BEDTIME #90 tabs 08/11/23 acetaminophen 500 mg tablet 500 mg PO Q6H PRN fever or pain 08/25/23 #14 tabs ibuprofen 600 mg tablet 600 mg PO Q8H PRN fever or pain 08/25/23 #14 tabs Allergies Allergy/AdvReac Type Severity Reaction Status Date / Time SEASONAL ALLERGIES Allergy Intermediate RUNNY NOSE Uncoded 08/25/23 12:07 NASAL CONGESTION Review of Systems Review of Systems: ROS as per HPI [facility] Past Medical History Medical History (Updated 08/25/23 @ 23:50 by Nila Moscoso MD) Family history of cardiovascular disease Elevated ferritin HTN (hypertension) High triglycerides ALPHONSE (obstructive sleep apnea) Morbid obesity Nicotine dependence, cigarettes, uncomplicated Fatty liver History of colon polyps (~2018) Osteoarthritis of both knees History of Lyme disease Surgical History History of colonoscopy History of mandibular surgery Family History Family History Father CVD (cardiovascular disease) History of heart attack, Onset Age: 50 Mother No problems noted. Brother No problems noted. Sister No problems noted. Sister No problems noted. Sister No problems noted. 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 Cognitive needs: No Hearing needs: No Vision needs: No Physical Exam ED Vital Signs: Vital Signs - 24 hr 08/25/23 12:05 08/25/23 18:31 08/25/23 21:01 Temperature 101.3 F H 102.7 F H Pulse Rate 111 H 109 H 118 H Respiratory Rate 18 19 18 Blood Pressure 174/121 H 196/88 H 169/86 H Pulse Oximetry 100 96 93 Oxygen Delivery Method Room Air Room Air Room Air 08/25/23 22:15 08/25/23 22:55 08/25/23 23:38 Temperature 99.2 F 98.9 F Pulse Rate 93 91 Respiratory Rate 17 20 Blood Pressure 135/77 Pulse Oximetry 95 93 Oxygen Delivery Method CPAP Room Air BMI result Body Mass Index 44.3 Gen: NAD, AOx3 HEENT: NCAT, EOMI, normal conjunctiva, uvula midline without edema, no posterior oropharynx erythema or exudates, no sublingual edema Neck: No nuchal rigidity Skin: no rash to anterior/posterior torso, bilateral upper and lower extremities CV: RRR Pulm: CTAB, no increased work of breathing GI: Soft, NTND, no rebound, guarding or rigidity Neuro: Grossly non focal, normal Kernig's sign and Brudzinski's sign Course Course Course Narrative: RME- 57-year-old male presents for evaluation of high blood pressure and headache. He reports his symptoms started 2 days ago. He was vomiting Friday, 2 days ago but not currently nauseous. Denies any cough, chest, shortness of breath. The patient is found to be febrile to 101.3. Plan for viral swabs, labs, Tylenol. Medications Administered Discontinued Medications Generic Name Dose Route Start Last Admin Trade Name Kevinq PRN Reason Stop Dose Admin Acetaminophen 975 mg 08/25/23 12:07 08/25/23 12:11 Acetaminophen 325 Mg Tablet PO 08/25/23 12:08 975 mg ONCE ONE Administration Acetaminophen 975 mg 08/25/23 20:29 08/25/23 21:00 Acetaminophen 325 Mg Tablet PO 08/25/23 20:30 975 mg ONCE ONE Administration Lactated Ringer's 1,000 mls @ 999 mls/hr 08/25/23 19:07 08/25/23 22:33 Lr IV 08/25/23 20:07 Infused .Q1H1M ONE Infusion Ibuprofen 600 mg 08/25/23 22:45 08/25/23 23:35 Ibuprofen 600 Mg Tablet PO 08/25/23 22:46 600 mg ONCE ONE Administration Medical Decision Making Medical Decision Making [facility] Narrative: Differential diagnosis includes, but is not limited to viral upper respiratory tract infection, pneumonia. Patient is febrile. He is hemodynamically stable on room air. This is not hypertensive emergency. Exam is benign and reassuring. Considered meningitis, but patient is very well-appearing and does not have meningismus so this is thought to be much less likely. I do not suspect encephalitis given the patient is alert and oriented entering questions appropriately and following commands. . I reviewed and interpreted labs, which are noncontributory. I have reviewed and interpreted chest x-ray which is unremarkable for any acute findings. Patient has negative for influenza a, COVID-19 and RSV. Urinalysis is unremarkable and not consistent with urinary tract infection given absence of dysuria, flank pain or urinary frequency/urgency. Patient remains febrile after initial dose of Tylenol while in the waiting room. We will provide additional Tylenol, IV fluids and obtain respiratory pathogen panel. Care is transitioned to Dr. Moscoso at 2100 with disposition pending Tylenol, IV fluids, respiratory pathogen panel and reevaluation. -received sign-out from my colleague Dr. Pugh -patient no longer febrile, received fluids, Tylenol, no nausea vomiting. -no clear source of infection, likely a viral syndrome. Negative for COVID and RSV -patient ready for discharge, instructed to follow-up with his primary care physician. -vital signs at time of discharge: Blood pressure 135/77, heart rate 91, respirations 20, temperature 98.9 degrees, oxygen saturation 94% on room air Differential Diagnosis Differential Diagnoses: The differential diagnosis associated with the presentation includes (COVID, influenza, pneumonia, UTI, viral syndrome) Admission/Observation Consideration of admission/observation: Escalation of care including admission/observation considered Lab Data MDM Lab Attestation statement: I reviewed the patient's lab results. 08/25/23 14:27 08/25/23 14:27 Labs: Lab Results 08/25/23 08/25/23 08/25/23 Range/Units 14:18 14:19 14:27 WBC 5.9 (4.8-10.8) X10*3/uL RBC 5.54 (4.60-5.80) X10*6/uL Hgb 15.4 (14.0-18.0) g/dl Hct 44.6 (42.0-52.0) % MCV 80.5 (80.0-98.0) fL MCH 27.8 (27.0-33.0) pg MCHC 34.5 (31.0-36.0) g/dl RDW 13.2 (11.0-16.0) % Plt Count 118 L (160-400) X10*3/uL MPV 11.2 (9.4-12.4) fL Immature Gran % (Auto) 0.5 H (0.0-0.4) % Neut % (Auto) 86.0 H (45-73) % Lymph % (Auto) 7.7 L (20-40) % [place] % (Auto) 5.3 (2-11) % Eos % (Auto) 0.2 (0-4) % Baso % (Auto) 0.3 (0-2) % Lymph # (Auto) 0.5 L (1.2-4.9) X10*3/uL [place] # (Auto) 0.3 (0.1-1.2) X10*3/uL Eos # (Auto) 0.0 (0.0-0.4) X10*3/uL Baso # (Auto) 0.0 (0.0-0.2) X10*3/uL Abs Immat Gran (auto) 0.03 (0.00-0.03) X10*3/uL Absolute Neuts (auto) 5.0 (2.0-8.3) x10*3/uL Absolute Nucleated RBC 0.000 (0.0-0.012) X10*3/uL Nucleated RBC % (auto) 0.0 (0.0-0.2) /100WBC Sodium 137 (135-145) mmol/L Potassium 4.0 (3.3-5.1) mmol/L Chloride 103 (96-108) mmol/L Carbon Dioxide 25 (22-29) mmol/L Anion Gap 13 (12-20) BUN 14 (9-16) mg/dL Creatinine 0.71 (0.5-1.4) mg/dL Estim Creat Clear Calc 155.3 Estimated GFR > 60 Random Glucose 126 H (60-115) mg/dL Lactic Acid 1.6 (0.5-2.0) mmol/L Calcium 9.2 (8.4-10.2) mg/dL Total Bilirubin 0.7 (0.0-1.0) mg/dL AST 21 (5-37) U/L ALT 29 (0-40) U/L Alkaline Phosphatase 80 (39-117) U/L Total Protein 7.0 (6.5-8.0) g/dL Albumin 4.2 (3.5-5.0) g/dL Lipase 19 (8-78) U/L Urine Color Dark Yellow Urine Appearance Clear Urine pH 5.5 (5.0-9.0) Ur Specific [place] >= 1.030 H (1.005-1.025) Urine Protein 30 (1+) H (Neg-Trace) mg/dL Urine Glucose (UA) 250 H (Negative) mg/dL Urine Ketones Trace (Negative) mg/dL Urine Blood Negative (Negative) Urine Nitrite Negative (Negative) Ur Leukocyte Esterase Negative (Negative) Urine RBC 0-2 (0-2) /HPF Urine WBC 0-5 (0-5) /HPF Ur Squamous Epith Cells 0-2 (0-2) /HPF Urine Bacteria None Seen (None Seen) Hyaline Casts 0-2 (0-2) /LPF Influenza Type A (PCR) NEGATIVE (Negative) Influenza Type B (PCR) NEGATIVE (Negative) RSV RNA Qual (PCR) NEGATIVE (Negative) SARS-CoV-2 RNA (RT-PCR) NEGATIVE (Negative) Independent Interpretation I performed an independent interpretation of an: EKG and Plain X-Ray Interpretation: EKG shows sinus rhythm at 96 beats per minute, DE 156, QRS 100, QTC 447, no ST/T-wave changes, no STEMI (there are no diagnostic ischemic changes compared to prior EKG January 05, 2003) Chest x-ray demonstrates no focal infiltrate, focal consolidation or pneumothorax. Radiology Impression Discussion of test interpretation with radiology: I have reviewed the radiologist's reading. Radiologist Impression: IMPRESSION: No acute cardiopulmonary process seen. Mild elevation of left hemidiaphragm compared to previous exam. Dictated By: Valdemar Argueta MD Signed By: <Electronically signed by Valdemar Argueta MD in OV> 08/25/232021 Critical Care Time Critical Care Time Critical Care Time: Yes Total Critical Care Time: 35 Attestation: I have personally provided critical care time. Time includes review of lab data, radiology results, discussion with consultants, and monitoring for potential decompensation. Intervention performed as documented. Discharge Plan Discharge Clinical Impression: Fever, Acute viral syndrome Patient Disposition: Home, Self-Care Instructions: Viral Syndrome (ED) Additional Instructions: Please follow-up with your primary care physician tomorrow. If you have any worsening or new symptoms, please return to the emergency room or call 911 Prescriptions: New acetaminophen 500 mg tablet 500 mg PO Q6H PRN (Reason: fever or pain) Qty: 14 0RF ibuprofen 600 mg tablet 600 mg PO Q8H PRN (Reason: fever or pain) Qty: 14 0RF No Action (DME) blood-glucose meter [FreeStyle Lite Meter] Kit See Rx Instructions .Route Qty: 1 0RF Rx Instructions: Use to check fasting blood sugar and a random blood sugar twice daily (DME) FreeStyle Lite Strips Strip See Rx Instructions .Route Qty: 100 3RF Rx Instructions: Use to check fasting blood sugar and a random blood sugar twice daily (DME) lancets [FreeStyle Lancets] 28 gauge misc See Rx Instructions .Route Qty: 100 3RF Rx Instructions: Use to check fasting blood sugar and a random blood sugar twice daily lisinopril 40 mg tablet 40 mg PO DAILY Qty: 90 1RF celecoxib 200 mg capsule 200 mg PO BID 30 Days Qty: 60 3RF atorvastatin 20 mg tablet 20 mg PO BEDTIME Qty: 90 1RF ofloxacin 0.3 % drops 2 drp ophthalmic (eye) .4 times Qty: 10 0RF Rx Instructions: 4 times daily x 5 days sildenafil 50 mg tablet 50 mg PO DAILY PRN (Reason: sexual activity) Qty: 14 0RF Rx Instructions: administer 30 minutes to 4 hours before activity diclofenac sodium 1 % gel 2 g topical QID Rx Instructions: apply to single elbow, wrist or hand; for hand includes palm/fingers/back of hand Stand Alone Forms: Work/School Release Print Language: Norwegian
[2023-08-25] MEDS: Acetaminophen 325 MG TABLET 975 MG PO ×2 (12:11→21:00)
[2023-08-25 14:41] LABS: Appearance Urine Clear; Color Urine Dark Yellow; Glucose Urine UA 250 mg/dL (Negative); Leukocyte Esterase Urine Negative (Negative); Nitrite Urine Negative (Negative); PH 5.5 (5.0-9.0); Specific Gravity - Urine >= 1.030 (1.005-1.025); UMIC TRIGGER UACC YES; Urine Blood Negative (Negative); Urine Ketones Trace mg/dL (Negative); Urine Protein 30 (1+) mg/dL (Neg-Trace)
[2023-08-25 14:41] LABS: MANUAL DIFF FLAG NO
[2023-08-25 14:46] LABS: Bacteria Urine None Seen (None Seen); Hyaline Casts Urine 0-2 /LPF (0-2); RBC Urine 0-2 /HPF (0-2); Squamous Epithelial Cell Urine 0-2 /HPF (0-2); WBC Urine 0-5 /HPF (0-5)
[2023-08-25 14:47] LABS: Basophils Percent Auto 0.3 % (0-2); Eosinophils Percent Auto 0.2 % (0-4); Hematocrit 44.6 % (42.0-52.0); Hemoglobin 15.4 g/dl (14.0-18.0); Imm Gran Abs Auto 0.03 X10*3/uL (0.00-0.03); Imm Gran Pct Auto 0.5 % (0.0-0.4); Lymphocytes Absolute Auto 0.5 X10*3/uL (1.2-4.9); Lymphocytes Percent Auto 7.7 % (20-40); Mean Corpuscular HGB Conc 34.5 g/dl (31.0-36.0); Mean Corpuscular Hemoglobin 27.8 pg (27.0-33.0); Mean Corpuscular Volume 80.5 fL (80.0-98.0); Mean Platelet Volume 11.2 fL (9.4-12.4); Monocytes Absolute Auto 0.3 X10*3/uL (0.1-1.2); Monocytes Percent Auto 5.3 % (2-11); Platelet Count 118 X10*3/uL (160-400); Red Blood Count 5.54 X10*6/uL (4.60-5.80); Red Cell Distribution Width 13.2 % (11.0-16.0); White Blood Count 5.9 X10*3/uL (4.8-10.8)
[2023-08-25 14:54] LABS: Lactic Acid 1.6 mmol/L (0.5-2.0)
[2023-08-25 15:00] LABS: Alanine Aminotransferase 29 U/L (0-40); Albumin Level 4.2 g/dL (3.5-5.0); Alkaline Phosphatase 80 U/L (39-117); Anion Gap 13 (12-20); Aspartate Amino Transferase 21 U/L (5-37); Bilirubin Total 0.7 mg/dL (0.0-1.0); Blood Urea Nitrogen 14 mg/dL (9-16); Calcium 9.2 mg/dL (8.4-10.2); Carbon Dioxide 25 mmol/L (22-29); Chloride 103 mmol/L (96-108); Creatinine Clr Calc Pharmacy 155.3; Estimated Glomerular Filt Rate > 60; Glucose Random 126 mg/dL (60-115); Lipase 19 U/L (8-78); Sodium 137 mmol/L (135-145)
[2023-08-25 15:20] LABS: Influenza A PCR NEGATIVE (Negative); Influenza B PCR NEGATIVE (Negative); Resp Syncy Virus RNA Qual PCR NEGATIVE (Negative); SARS COV2 PCR INHOUSE NEGATIVE (Negative)
[2023-08-25 18:31] VITALS: BP 196/88; PULSE 109; RESP 19; TEMP 39.3; O2SAT 96
[2023-08-25 21:01] VITALS: BP 169/86; PULSE 118; RESP 18; O2SAT 93
[2023-08-25] MEDS: Lactated Ringers 1,000 ML 999 ML IV (21:01)
[2023-08-25 22:15] VITALS: PULSE 93; RESP 17; O2SAT 95
[2023-08-25 22:55] VITALS: TEMP 37.3
[2023-08-25] MEDS: Ibuprofen 600 MG TABLET PO (23:35)
[2023-08-25 23:38] VITALS: BP 135/77; PULSE 91; RESP 20; TEMP 37.2; O2SAT 93
[2023-08-26 00:41] VITALS: BP 112/72; PULSE 76; RESP 16; TEMP 37.2; O2SAT 96
--- NOTE | 2023-08-26 06:07 | PC.NURSE ---
at this time 08/25, gram + cocci in chains. reporte to provider. pt has been discharged.
[2023-08-26 10:08] LABS: Adenovirus PCR Not Detected (Not Detect.); Bordetella parapertussis PCR Not Detected (Not Detect.); Bordetella pertussis PCR Not Detected (Not Detect.); Chlamydia pneumoniae PCR Not Detected (Not Detect.); Coronavirus 229E PCR Not Detected (Not Detect.); Coronavirus HKU1 PCR Not Detected (Not Detect.); Coronavirus NL63 PCR Not Detected (Not Detect.); Coronavirus OC43 PCR Not Detected (Not Detect.); Human metapneumovirus PCR Not Detected (Not Detect.); Influenza A PCR Not Detected (Not Detect.); Influenza B PCR Not Detected (Not Detect.); Mycoplasma pneumoniae PCR Not Detected (Not Detect.); Parainfluenza 1 PCR Not Detected (Not Detect.); Parainfluenza 2 PCR Not Detected (Not Detect.); Parainfluenza 3 PCR Not Detected (Not Detect.); Parainfluenza 4 PCR Not Detected (Not Detect.); RSV PCR Not Detected (Not Detect.); Rhino/Enterovirus PCR Not Detected (Not Detect.)
[2023-08-26 10:29] LABS: SARS-CoV-2 PCR Not Detected (Not Detect.)
== END 2023-08-26 00:50 | disposition home or self-care (01) ==
PROVIDERS: Emergency Medicine; Physician Assistant; Emergency Provider Emergency Medicine; PCP Nurse Practitioner Family
DX: B34.9 Viral infection, unspecified (principal); R51.9 Headache, unspecified; I10 Essential (primary) hypertension; R50.9 Fever, unspecified; R06.02 Shortness of breath; F17.210 Nicotine dependence, cigarettes, uncomplicated
CPT/HCPCS: 0241U; 71045; 80053; 81001; 83605; 83690; 85025; 87040; 87147; 87205; 87633; 93005; 96360; 99284; 99285; J7120

== ENCOUNTER → 2023-08-25 12:07 | Outpatient (BNV) | payer OTHER, SELFPAY | PROVIDERS: PCP Nurse Practitioner Family; Visit Provider Internal Medicine Cardiovascular Disease | DX: I15.8 Other secondary hypertension (principal) | CPT/HCPCS: 93010 ==

== ENCOUNTER 2023-08-27 11:53 | Inpatient (IN) | payer OTHER, SELFPAY ==
[2023-08-27] VITALS (8 sets, daily range): BP systolic 131–168; BP diastolic 54–96; PULSE 97–124; RESP 13–20; TEMP 37.2–38.1; O2SAT 93–97; BMI 43.9; BMI 44.9
--- NOTE | ~2023-08-27 | XR_ITS ---
EXAMINATION: XR CHEST CLINICAL INFORMATION: Fever COMPARISON: 08/25/2023 TECHNIQUE: 2 views of the chest were obtained. FINDINGS: No significant abnormality is noted involving the heart, lungs, mediastinum, bony thorax or soft tissues. XR/XR chest 2V IMPRESSION: Unremarkable examination.
--- NOTE | ~2023-08-27 | CT_ITS ---
EXAMINATION: CT FACIAL BONES WITHOUT CONTRAST CLINICAL INFORMATION: Left-sided lower dental pain. Bacteremia. COMPARISON: None available. TECHNIQUE: Multidetector helical imaging acquired in the axial plane with generation of reformatted acquisitions. The study is limited due to patient motion artifacts. This CT examination was performed using dose optimization techniques as appropriate, variously including the following: *Automated exposure control *Adjustment of mA and/or kV according to patient size (this includes techniques or standardized protocols for targeted exams where dose is matched to indication/reason for exam; i.e. extremities or head) *Use of iterative reconstruction technique DLP: 373 mGy-cm FINDINGS: There is periodontal and periapical disease associated with a solitary left mandibular molar tooth. Filling material noted within the crown of this tooth. Focal erosion of the lingual cortex visible at this site. No soft tissue fluid collection is seen in this region. The oral cavity otherwise appears grossly normal on this noncontrast exam. The submandibular glands are homogeneous. The imaged parotid glands appear normal. No pharyngeal mucosal space soft tissue abnormality is evident. No upper cervical adenopathy is seen. No inflammatory changes are seen in the lower facial soft tissues. The nasopharyngeal soft tissues appear normal. The imaged mastoid air cells are clear. There is significant hypertrophic osseous spurring anteriorly at the C2-C3 level and ossification of the posterior longitudinal ligament impressing upon the ventral cord and thecal sac. The orbits are grossly unremarkable. The temporomandibular joints appear normal. There is a significant rightward nasal septal deviation. Postoperative changes visible along the anterior maxillary sinus montez bilaterally. There is a 1.4 cm retention cyst in the right maxillary antrum. A solitary posterior left ethmoid air cell is soft tissue opacified with surrounding chronic osteogenic wall thickening. The remaining imaged paranasal sinuses are clear. The imaged portions of the brain demonstrate no acute abnormality. CT/CT facial bones wo IV con IMPRESSION: Limited study with motion artifacts. Periodontal and periapical disease associated with a solitary left mandibular molar. No regional soft tissue fluid collection or inflammatory changes. Suggest correlation with follow up dental evaluation. No upper cervical adenopathy. Solitary posterior left ethmoid air cell with soft tissue opacification and surrounding sclerotic wall changes from presumed chronic inflammatory disease. Significant rightward nasal septal deviation. Moderate spondylosis at the C2-C3 level with ossification of the posterior longitudinal ligament impressing upon the ventral thecal sac.
--- NOTE | ~2023-08-27 | CT_ITS ---
EXAMINATION: CT FOOT WITH CONTRAST, RIGHT CLINICAL INFORMATION: Right first toe infection. COMPARISON: X-ray 09/11/2023 TECHNIQUE: Axial imaging. Sagittal and coronal reconstructions. Contrast dose: 85 mL Omnipaque-350. This CT examination was performed using dose optimization techniques as appropriate, variously including the following: *Automated exposure control *Adjustment of mA and/or kV according to patient size (this includes techniques or standardized protocols for targeted exams where dose is matched to indication/reason for exam; i.e. extremities or head) *Use of iterative reconstruction technique DLP: 186 mGy-cm FINDINGS: Soft tissue wound along the plantar/medial aspect of the distal first toe. There is diffuse soft tissue swelling and subcutaneous edema/cellulitis of the first toe. No organized fluid collection or rim-enhancing abscess is seen. There is some lobulation/spurring, appearing chronic of the distal aspect of the first distal phalanx. No definitive erosive or destructive changes identified. Mild first interphalangeal joint arthritis. There is haziness and stranding in the subcutaneous tissues along the plantar/lateral aspect of the fifth metatarsal, which may reflect pressure changes versus cellulitis. No acute fracture seen. Mild arthritis in some of the interphalangeal joints of the toes. There is arthritis in the midfoot. Mild tibiotalar joint arthritis. Large posterior calcaneal spurring. Chronic appearing ossification in the distal Achilles tendon. Prominent plantar calcaneal spurring. Chronic appearing calcification in the region of the proximal plantar fascia. No appreciable tenosynovitis. CT/CT foot RT w IV con IMPRESSION: 1. Soft tissue wound along the plantar/medial aspect of the distal first toe. Diffuse soft tissue swelling and edema/cellulitis of the first toe. No organized fluid collection or rim-enhancing abscess is seen. 2. No CT evidence of erosive or destructive changes in the first distal phalanx to suggest osteomyelitis. Early changes of osteomyelitis not be evident on CT . Further evaluation with MRI may be helpful. 3. Arthritis. Calcaneal spurring.
--- NOTE | ~2023-08-27 | XR_ITS ---
EXAMINATION: Right great toe CLINICAL INFORMATION: Sepsis. Wound. COMPARISON: None available. TECHNIQUE: Frontal view of the foot. 2 cone-down views of the great toe FINDINGS: Diffuse soft tissue swelling of the right great toe. No focal bone lesion or bone destruction. No abnormal periosteal reaction. No radiographic evidence for osteomyelitis. Mild joint narrowing of the IP joint. Marginal bone spurs of the phalanges at the IP joint. Small marginal bone spur proximal phalange of the lateral side of the bone and metatarsophalangeal joint. XR/XR toe RT min 2V IMPRESSION: Diffuse soft tissue swelling of the great toe. No radiographic evidence for osteomyelitis.
[2023-08-27] MEDS: Acetaminophen 325 MG TABLET 975 MG PO (12:42)
--- NOTE | 2023-08-27 12:53 | ED_ITS ---
HPI - General Adult General Chief complaint: General Medical Stated complaint: FEVER X6D,103.2,R TOE WOUND,97% 2L,168/98 PER EMS Time Seen by Provider: 08/27/23 12:20 Source: patient, EMS, RN notes reviewed and old records reviewed Mode of arrival: EMS Limitations: no limitations History of Present Illness ED Provider: Afua Diehl PA-C HPI narrative: 57-year-old male with history of morbid obesity, ALPHONSE, HTN, osteoarthritis, fatty liver who presents to the ER for evaluation of fevers that have been ongoing for the last 5 days. Fevers have been up to 103. Patient states he started feeling unwell on -. He would get intermittent bouts of chills and shaking, headaches and body aches. He had fevers up to 103 at home. He came to the hospital on 08/24 where he had lab work done that was unremarkable. He was sent home with probable viral illness. States he has had ongoing spikes of fevers to 103.2. He has been taking ibuprofen and Tylenol intermittently. Other symptoms include ongoing headache, generalized fatigue and not feeling well. He denies any chest pain, shortness of breath, abdominal pain, nausea, vomiting, diarrhea. He reports a decrease in p.o. intake just due to decreased appetite. He reports a chronic wound on his right great toe that has been intermittently draining blood for the last couple of weeks. No foul-smelling drainage or purulent material. No history of diabetes. He denies any hardware throughout his body. He denies history of IV drug use. No other wounds on his body. MD complaint: Fever Onset (ago): day(s) (5) Relieving factors: medication Exacerbating factors: none Associated symptoms: headaches, loss of appetite, malaise and weakness Treatments prior to arrival: NSAID Related Data Home Medications ?Medication ?Instructions ?Recorded ?Confirmed diclofenac sodium 1 % topical gel 2 g topical QID 06/28/21 11/07/22 Previous Rx's ?Medication ?Instructions ?Recorded ofloxacin 0.3 % eye drops 2 drp ophthalmic (eye) .4 times 01/18/21 #10 mL sildenafil 50 mg tablet 50 mg PO DAILY PRN sexual activity 11/08/22 #14 tabs blood sugar diagnostic (FreeStyle #100 ea 11/13/22 Lite Strips) blood-glucose meter (FreeStyle #1 ea 11/13/22 Lite Meter kit) lancets 28 gauge (FreeStyle #100 ea 11/13/22 Lancets) atorvastatin 20 mg tablet 20 mg PO BEDTIME #90 tabs 08/11/23 acetaminophen 500 mg tablet 500 mg PO Q6H PRN fever or pain 08/25/23 #14 tabs ibuprofen 600 mg tablet 600 mg PO Q8H PRN fever or pain 08/25/23 #14 tabs celecoxib 200 mg capsule 200 mg PO BID 30 days #60 caps 08/26/23 lisinopril 40 mg tablet 40 mg PO DAILY #90 tabs 08/26/23 Allergies Allergy/AdvReac Type Severity Reaction Status Date / Time SEASONAL ALLERGIES Allergy Intermediate RUNNY NOSE Uncoded 08/27/23 12:32 NASAL CONGESTION Review of Systems 2 Review of Systems: Yes all other systems are reviewed and are negative [facility] Past Medical History Medical History (Updated 08/27/23 @ 15:07 by ALEX Schaefer) Family history of cardiovascular disease Elevated ferritin HTN (hypertension) High triglycerides ALPHONSE (obstructive sleep apnea) Morbid obesity Nicotine dependence, cigarettes, uncomplicated Fatty liver History of colon polyps (~2018) Osteoarthritis of both knees History of Lyme disease Surgical History History of colonoscopy History of mandibular surgery Family History Family History Father CVD (cardiovascular disease) History of heart attack, Onset Age: 50 Mother No problems noted. Brother No problems noted. Sister No problems noted. Sister No problems noted. Sister No problems noted. 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 Oriented X3. No acute distress. Head: normocephalic, atraumatic. Eyes: Pupils equal, round and reactive to light. ENT: Pharynx normal. No tonsillar swelling or exudate. Neck: Normal inspection. Neck supple. CVS: Normal heart rate and rhythm. Pulses normal. Respiratory: No respiratory distress. Breath sounds normal. Abdomen: Rotund, Soft and nontender. +BS x4 Skin: Skin warm and dry. Normal skin color. Normal skin turgor. No rashes. Extremities: No lower extremity edema. No joint swelling. Right great toe with chronic appearing, dry wound w/ small central opening, no drainage. see photo Neuro/psych: Oriented X 3. No motor deficit. No sensory deficit. CN II-XII intact. Normal speech and cognition. Medications Administered Discontinued Medications Generic Name Dose Route Start Last Admin Trade Name Freq PRN Reason Stop Dose Admin Acetaminophen 975 mg 08/27/23 12:30 08/27/23 12:42 Acetaminophen 325 Mg Tablet PO 08/27/23 12:31 975 mg ONCE ONE Administration Ceftriaxone Sodium 1 gm/ 50 mls @ 100 mls/hr 08/27/23 12:21 08/27/23 13:52 Sodium Chloride IV 08/27/23 12:50 Infused ONCE ONE Infusion Sodium Chloride 1,000 mls @ 999 mls/hr 08/27/23 14:00 08/27/23 14:01 Ns IVCONT 08/27/23 15:00 999 mls/hr .Q1H1M YIMI Administration Medical Decision Making Medical Decision Making MDM Narrative: 57-year-old male with history of HTN, morbid obesity, ALPHONSE presenting for evaluation of ongoing fevers for the last 5 days. Patient found to have group B strep in his blood from 08/24. 03/25 cultures is positive. He does have a chronic wound on the right great toe that does not have any purulent drainage. No other wounds on examination. No hardware. No murmur on exam to suggest cardiac vegetation. Patient arrives to the ER with low-grade fever after taking NSAID at home. He is tachycardic. He has known strep bacteremia. Sepsis alert was called. No evidence of severe sepsis at this time. BP is stable. Patient was covered with IV Rocephin and given IV fluids. Repeat cultures were sent. Lab workup today shows no leukocytosis. Will plan to admit the hospital for further evaluation and treatment. Differential Diagnosis Differential Diagnoses: The differential diagnosis associated with the presentation includes Strep bacteremia from infected wound, endocarditis, pneumonia, UTI, other infected wound, osteomyelitis Admission/Observation Consideration of admission/observation: Escalation of care including admission/observation considered Consult Healthcare Provider Management of the patient was discussed with: Indoor Plant Technician Hospitalist accepts the patient Lab Data MDM Lab Attestation statement: I reviewed the patient's lab results. Mild thrombocytopenia could be due to sepsis, no leukocytosis 08/27/23 13:04 08/27/23 13:04 Labs: Lab Results 08/27/23 08/27/23 Range/Units 13:04 14:10 WBC 6.4 (4.8-10.8) X10*3/uL RBC 5.43 (4.60-5.80) X10*6/uL Hgb 15.3 (14.0-18.0) g/dl Hct 43.9 (42.0-52.0) % MCV 80.8 (80.0-98.0) fL MCH 28.2 (27.0-33.0) pg MCHC 34.9 (31.0-36.0) g/dl RDW 13.6 (11.0-16.0) % Plt Count 94 L (160-400) X10*3/uL MPV 10.8 (9.4-12.4) fL Immature Gran % (Auto) 0.3 (0.0-0.4) % Neut % (Auto) 86.5 H (45-73) % Lymph % (Auto) 5.7 L (20-40) % [place] % (Auto) 7.2 (2-11) % Eos % (Auto) 0.0 (0-4) % Baso % (Auto) 0.3 (0-2) % Lymph # (Auto) 0.4 L (1.2-4.9) X10*3/uL [place] # (Auto) 0.5 (0.1-1.2) X10*3/uL Eos # (Auto) 0.0 (0.0-0.4) X10*3/uL Baso # (Auto) 0.0 (0.0-0.2) X10*3/uL Abs Immat Gran (auto) 0.02 (0.00-0.03) X10*3/uL Absolute Neuts (auto) 5.5 (2.0-8.3) x10*3/uL Absolute Nucleated RBC 0.000 (0.0-0.012) X10*3/uL Nucleated RBC % (auto) 0.0 (0.0-0.2) /100WBC Sodium 135 (135-145) mmol/L Potassium 3.6 (3.3-5.1) mmol/L Chloride 100 (96-108) mmol/L Carbon Dioxide 22 (22-29) mmol/L Anion Gap 17 (12-20) BUN 18 H (9-16) mg/dL Creatinine 0.80 (0.5-1.4) mg/dL Estim Creat Clear Calc 137.2 Estimated GFR > 60 Random Glucose 167 H (60-115) mg/dL Lactic Acid 1.5 (0.5-2.0) mmol/L Calcium 8.8 (8.4-10.2) mg/dL Magnesium 1.8 (1.6-2.6) mg/dL Total Bilirubin 1.1 H (0.0-1.0) mg/dL Direct Bilirubin 0.4 (0.0-0.5) mg/dL AST 37 (5-37) U/L ALT 46 H (0-40) U/L Alkaline Phosphatase 92 (39-117) U/L Total Protein 6.9 (6.5-8.0) g/dL Albumin 3.9 (3.5-5.0) g/dL Urine Color Dark Yellow Urine Appearance Clear Urine pH 5.5 (5.0-9.0) Ur Specific [place] 1.025 (1.005-1.025) Urine Protein 100 (2+) H (Neg-Trace) mg/dL Urine Glucose (UA) 250 H (Negative) mg/dL Urine Ketones Trace (Negative) mg/dL Urine Blood Trace H (Negative) Urine Nitrite Negative (Negative) Ur Leukocyte Esterase Negative (Negative) Urine RBC 0-2 (0-2) /HPF Urine WBC 0-5 (0-5) /HPF Ur Squamous Epith Cells 6-10 (0-2) /HPF Urine Bacteria None Seen (None Seen) Hyaline Casts 0-2 (0-2) /LPF Independent Interpretation I performed an independent interpretation of an: Plain X-Ray Interpretation: Chest x-ray with cardiomegaly Great toe with a moderate-size portion of the plantar surface eaten away Independent Historian Clinical information obtained from an independent historian. History obtained from or confirmed by: Spouse and EMS External Record Review External record reviewed: Office record, Outpatient record, Prior outpatient labs and Prior outpatient radiology Tests considered The following testing was considered but not selected: CT scans of the chest, abdomen, pelvis were considered however low clinical suspicion for thoracic or abdominal source Prescription Management I considered prescription management with: Pain Medication and Antibiotic Chronic Conditions Patient?s care impacted by: Hypertension Critical Care Time Critical Care Time Critical Care Time: Yes Total Critical Care Time: 33 Attestation: I have personally provided critical care time exclusive of time spent on separately billable procedures. Time includes review of lab data, radiology results, discussion with consultants, and monitoring for potential decompensation. Intervention performed as documented. Discharge Plan Discharge Clinical Impression: Bacteremia due to group B Streptococcus Patient Disposition: Admitted As Inpatient Print Language: Amharic
[2023-08-27] MEDS: cefTRIAXone sodium 1 GM in 0.9 % Sodium Chloride 50 ML IV ×2 (13:07→17:01)
[2023-08-27 13:12] LABS: MANUAL DIFF FLAG NO
[2023-08-27 13:18] LABS: Basophils Percent Auto 0.3 % (0-2); Hematocrit 43.9 % (42.0-52.0); Hemoglobin 15.3 g/dl (14.0-18.0); Imm Gran Abs Auto 0.02 X10*3/uL (0.00-0.03); Imm Gran Pct Auto 0.3 % (0.0-0.4); Lymphocytes Absolute Auto 0.4 X10*3/uL (1.2-4.9); Lymphocytes Percent Auto 5.7 % (20-40); Mean Corpuscular HGB Conc 34.9 g/dl (31.0-36.0); Mean Corpuscular Hemoglobin 28.2 pg (27.0-33.0); Mean Corpuscular Volume 80.8 fL (80.0-98.0); Monocytes Absolute Auto 0.5 X10*3/uL (0.1-1.2); Monocytes Percent Auto 7.2 % (2-11); Neutrophils Absolute Auto 5.5 x10*3/uL (2.0-8.3); Neutrophils Percent Auto 86.5 % (45-73); Red Blood Count 5.43 X10*6/uL (4.60-5.80); Red Cell Distribution Width 13.6 % (11.0-16.0); White Blood Count 6.4 X10*3/uL (4.8-10.8)
[2023-08-27 13:24] LABS: Lactic Acid 1.5 mmol/L (0.5-2.0)
[2023-08-27 13:33] LABS: Alanine Aminotransferase 46 U/L (0-40); Albumin Level 3.9 g/dL (3.5-5.0); Alkaline Phosphatase 92 U/L (39-117); Anion Gap 17 (12-20); Aspartate Amino Transferase 37 U/L (5-37); Bilirubin Direct 0.4 mg/dL (0.0-0.5); Bilirubin Total 1.1 mg/dL (0.0-1.0); Blood Urea Nitrogen 18 mg/dL (9-16); Calcium 8.8 mg/dL (8.4-10.2); Carbon Dioxide 22 mmol/L (22-29); Chloride 100 mmol/L (96-108); Creatinine Clr Calc Pharmacy 137.2; Estimated Glomerular Filt Rate > 60; Glucose Random 167 mg/dL (60-115); Magnesium 1.8 mg/dL (1.6-2.6); Potassium 3.6 mmol/L (3.3-5.1); Sodium 135 mmol/L (135-145); Total Protein 6.9 g/dL (6.5-8.0)
[2023-08-27 13:40] LABS: Platelet Count 94 X10*3/uL (160-400)
[2023-08-27 13:41] LABS: Mean Platelet Volume 10.8 fL (9.4-12.4)
[2023-08-27] MEDS: 0.9 % Sodium Chloride 1,000 ML 999 ML IVCONT (14:01)
[2023-08-27 14:20] LABS: Appearance Urine Clear; Color Urine Dark Yellow; Glucose Urine UA 250 mg/dL (Negative); Leukocyte Esterase Urine Negative (Negative); Nitrite Urine Negative (Negative); PH 5.5 (5.0-9.0); Specific Gravity - Urine 1.025 (1.005-1.025); UMIC TRIGGER UACC YES; Urine Blood Trace (Negative); Urine Ketones Trace mg/dL (Negative); Urine Protein 100 (2+) mg/dL (Neg-Trace)
[2023-08-27 14:25] LABS: Bacteria Urine None Seen (None Seen); Hyaline Casts Urine 0-2 /LPF (0-2); RBC Urine 0-2 /HPF (0-2); WBC Urine 0-5 /HPF (0-5)
[2023-08-27 15:13] LABS: C Reactive Protein 11.77 mg/dL (< or = 0.50)
[2023-08-27 15:39] LABS: Erythrocyte Sedimentation Rate 10 MM/HR (0-15)
--- NOTE | 2023-08-27 16:04 | PHA.MEDREC ---
Pharmacy Consult ? Medication Reconciliation Pharmacy has completed the medication reconciliation. Confirmed medications with patient. Patient states he was taking Celecoxib 200mg but since starting to take the Tylenol and ibuprofen together he stopped taking the Celecoxib on Friday08/25/2023.
--- NOTE | 2023-08-27 16:09 | PM.IMHP ---
History of Present Illness Date of Service: 08/27/23 Attending physician on admission: Ron Coleman Chief Complaint: fevers, chills 57-year-old male with history of ALPHONSE compliant with CPAP, hypertension, hyperlipidemia, morbid obesity with BMI greater than 44 who is a current for cigarette per day smoker presents to the ED earlier today for evaluation of fevers up to 103.8 with rigors ongoing for several days. He did present to the ED yesterday due to the fevers with negative workup, thought to be secondary to viral syndrome. However, today, blood cultures x1 grew group B strep. His who is at bedside also states that he has been somewhat confused intermittently. He does have a wound on the right great toe that has been present for months without any purulent drainage or surrounding erythema. There is no associated pain. He does report history of crush injury to the right great toe about 20 years ago but has had no issues since then. He does report a productive cough that has been ongoing several days that only occurs at night with postnasal drip. No sore throat, congestion, abdominal pain, nausea, vomiting, diarrhea, dysuria, hematuria, wheezing, shortness of breath, chest pain. He does state that he has urinary frequency at baseline and since he has had fevers has also been incontinent. He reports occasional marijuana use. Reports drinking 7-8 beers over the weekend but otherwise no alcohol use. Since arrival, has had low-grade fevers of 100.6 but was febrile to 102.7 in the ER last night. He has been tachycardic to 116. Vitals otherwise stable. There is no leukocytosis. Platelets are 94. Renal function normal, electrolyte levels normal. Hepatic function largely unremarkable with slightly elevated bilirubin of 1.1 and ALT of 46. CRP 11.77, ESR 10. Urinalysis not indicative of infection. X-ray of the right great toe shows diffuse soft tissue swelling of the right great toe without any radiographic evidence of osteomyelitis. Chest x-ray pending. In the ED, had some given IV ceftriaxone, Tylenol, and normal saline. Review of Systems Review of Systems: Yes all other systems are reviewed and are negative [facility] Medical History Family history of cardiovascular disease Elevated ferritin HTN (hypertension) High triglycerides ALPHONSE (obstructive sleep apnea) Morbid obesity Nicotine dependence, cigarettes, uncomplicated Fatty liver History of colon polyps (~2018) Osteoarthritis of both knees History of Lyme disease Family History Father CVD (cardiovascular disease) History of heart attack, Onset Age: 50 Mother No problems noted. Brother No problems noted. Sister No problems noted. Sister No problems noted. Sister No problems noted. Paternal Uncle History of heart attack, Onset Age: 50 Surgical History History of colonoscopy History of mandibular surgery Social History Housing: Apartment Alcohol intake: current Alcohol intake frequency: 0-2 drinks per day Alcohol type: beer Patient Tobacco Use Status: Current everyday Tobacco user Cigarettes Per Day: 3 Years Smoked: (onset 16yo, 1/2ppd x 41yrs, now 3cig/day, 20pyh) Smoked in Last 30 Days: Yes e-Cigarette/Vaping Use: Former Use Second Hand Smoke Exposure: Yes Use of substances other than those prescribed or required for medical reasons: No Advance Directives: No Advance Directives Information Provided: Yes Current occupational status: employed 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 Cognitive needs: No Hearing needs: No Vision needs: No Meds Allergies Allergy/AdvReac Type Severity Reaction Status Date / Time SEASONAL ALLERGIES Allergy Intermediate RUNNY NOSE Uncoded 08/27/23 12:32 NASAL CONGESTION Active Medications: Current Medications Acetaminophen (Acetaminophen 325 Mg Tablet) 650 mg PO Q6H PRN PRN Reason: Pain, Mild (Pain Scale 1-3) Enoxaparin Sodium (Enoxaparin Sodium 40 Mg/0.4 Ml Syringe) 40 mg SUBCUT Q24H YIMI Ceftriaxone Sodium 1 gm/ (Sodium Chloride) 50 mls @ 100 mls/hr IV ONCE ONE Stop: 08/27/23 16:32 Ceftriaxone Sodium 2 gm/ (Sodium Chloride) 50 mls @ 100 mls/hr IV Q24H YIMI Magnesium Hydroxide (Milk Of Magnesia 30 Ml Oral.Susp) 30 ml PO DAILY PRN PRN Reason: Constipation Ondansetron HCl (Ondansetron Hcl 4 Mg/2 Ml Vial) 4 mg IVPUSH Q8H PRN PRN Reason: Nausea and Vomiting Pharmacy Consult (Consult Rx Vancomycin Dosing) 1 each MISCELLANE DAILY PRN PRN Reason: Consult order Sodium Chloride (0.9 % Sodium Chloride Flush 3 Ml Syringe) 3 ml IVFLUSH QSHIFT [facility] Home Medications ?Medication ?Instructions ?Recorded ?Confirmed ?Last Taken ?Type acetaminophen 500 mg tablet 500 mg PO Q4H PRN fever or pain 08/27/23 08/27/23 08/26/23 05:00 History diphenhydramine HCl 25 mg capsule 25 mg PO DAILY PRN Allergy Symptoms 08/27/23 08/27/23 Unknown History (Benadryl) ibuprofen 600 mg tablet 600 mg PO Q4H PRN fever or pain 08/27/23 08/27/23 08/26/23 05:00 History Physical Exam Vital Signs and Narrative: Vital Signs: Last Vital Signs Temp 100.3 F 08/27/23 15:22 Pulse 102 H 08/27/23 15:22 Resp 20 08/27/23 15:22 BP 136/54 L 08/27/23 15:22 Pulse Ox 97 08/27/23 15:22 O2 Del Method Room Air 08/27/23 15:22 BMI result Body Mass Index 43.9 Constitutional - Awake and Alert, No apparent distress Eyes - PERRLA, EOMI Cardiovascular - S1S2, RRR, No edema Respiratory - Normal lung expansion, Normal respiratory effort, No respiratory distress, CTA bilaterally Gastrointestinal - NT / ND; +BS; No rebound or guarding Extremities - no calf tenderness bilaterally, no swelling Skin - Warm/Dry. Significant callus to the medial aspect of the R great toe with tunneling wound without any purulent drainage or erythema Neurological - Alert & oriented x3 Psychological - Appropriate affect Results Labs 08/27/23 13:04 08/27/23 13:04 Labs: Laboratory Results - last 24 hr 08/27/23 08/27/23 13:04 14:10 MCV 80.8 MCH 28.2 MCHC 34.9 RDW 13.6 Plt Count 94 L MPV 10.8 Immature Gran % (Auto) 0.3 Neut % (Auto) 86.5 H Lymph % (Auto) 5.7 L [place] % (Auto) 7.2 Eos % (Auto) 0.0 Baso % (Auto) 0.3 Lymph # (Auto) 0.4 L [place] # (Auto) 0.5 Eos # (Auto) 0.0 Baso # (Auto) 0.0 Abs Immat Gran (auto) 0.02 Absolute Neuts (auto) 5.5 Absolute Nucleated RBC 0.000 Nucleated RBC % (auto) 0.0 ESR 10 Anion Gap 17 Estim Creat Clear Calc 137.2 Estimated GFR > 60 Random Glucose 167 H Lactic Acid 1.5 Calcium 8.8 Magnesium 1.8 Total Bilirubin 1.1 H Direct Bilirubin 0.4 AST 37 ALT 46 H Alkaline Phosphatase 92 C-Reactive Protein 11.77 H Total Protein 6.9 Albumin 3.9 Urine Color Dark Yellow Urine Appearance Clear Urine pH 5.5 Ur Specific [place] 1.025 Urine Protein 100 (2+) H Urine Glucose (UA) 250 H Urine Ketones Trace Urine Blood Trace H Urine Nitrite Negative Ur Leukocyte Esterase Negative Urine RBC 0-2 Urine WBC 0-5 Ur Squamous Epith Cells 6-10 Urine Bacteria None Seen Hyaline Casts 0-2 Imaging Radiologist's Impressions: Impressions Toe X-Ray 08/27/23 13:41 IMPRESSION: Diffuse soft tissue swelling of the great toe. No radiographic evidence for osteomyelitis. Assessment and Plan (1) Bacteremia due to group B Streptococcus: Status: Acute Plan 57-year-old male with history of ALPHONSE compliant with CPAP, hypertension, hyperlipidemia, morbid obesity with BMI greater than 44 who is a current for cigarette per day smoker admitted for further management of strep B bacteremia. # strep B bacteremia -suspect soft tissues source with chronic wound to the right great toe. No evidence of osteomyelitis or cellulitis at this time -UA not indicative of infection. Chest x-ray appears negative but final read is pending. -2 g IV ceftriaxone. Will cover with vancomycin at this time pending Infectious Disease consult which has been placed -no leukocytosis. Temperature 100.6 degrees, tachycardia. No SIRS criteria or sepsis. Lactic acid normal -echo ordered -Repeat cultures pending -follow cbc/cultures # acute cough -RPP negative last night. Chest x-ray negative -question allergic? continue Benadryl. Guaifenesin p.r.n. #ALPHONSE -cpap bedtime #Acute hyperglycemia -hgb a1c pending # hypertension -blood pressure reasonably controlled -continue lisinopril # hyperlipidemia -continue statin # morbid obesity -weight loss efforts encouraged # cigarette smoking -cessation advised, declines replacement therapy DVT prophylaxis-Lovenox Full code Patient requires inpatient stay at least 2 midnights for IV antibiotics due to strep B bacteremia and will require repeat cultures with probable long-term antibiotics pending expert consultation Quality Stroke Does the patient have a stroke diagnosis?: No VTE Prior VTE?: No VTE Risk Level:: Medical - moderate - high VTE Device Contraindication: Treatment Not Indicated VTE Drug Contraindication: N/A - Med Ordered
[2023-08-27 16:56] LABS: Estimated Average Glucose 143 mg/dL; Hemoglobin A1c % 6.6 % (<6.0)
[2023-08-27] MEDS: Enoxaparin Sodium 40 MG/0.4 ML SYRINGE SUBCUT (17:01)
[2023-08-27] MEDS: vancomycin/NS 2,000 MG/500 ML PLAST..BAG 250 MG IV (17:53)
[2023-08-27] MEDS: Acetaminophen 325 MG TABLET 650 MG PO (18:25)
--- NOTE | 2023-08-27 18:26 | PC.NURSE ---
pt reports headache
[2023-08-27 19:48] LABS: Glucose, Whole Blood 140 mg/dL (60-115)
[2023-08-27] MEDS: Atorvastatin Calcium 20 MG TABLET PO (19:59)
[2023-08-27] MEDS: 0.9 % Sodium Chloride Flush 3 ML SYRINGE IVFLUSH (19:59)
[2023-08-27] MEDS: Celecoxib 200 MG CAPSULE PO (19:59)
[2023-08-28 03:11] VITALS: BP 123/61; PULSE 83; RESP 16; TEMP 36.5; O2SAT 96
[2023-08-28] MEDS: vancomycin HCL 1,250 MG in 0.9 % Sodium Chloride 250 ML 166.67 MG IV (04:06)
[2023-08-28 06:27] LABS: MANUAL DIFF FLAG NO
[2023-08-28 06:51] LABS: Anion Gap 11 (12-20); Blood Urea Nitrogen 13 mg/dL (9-16); Calcium 8.4 mg/dL (8.4-10.2); Carbon Dioxide 26 mmol/L (22-29); Chloride 103 mmol/L (96-108); Creatinine Clr Calc Pharmacy 185.2; Estimated Glomerular Filt Rate > 60; Glucose Random 130 mg/dL (60-115); Potassium 3.4 mmol/L (3.3-5.1); Sodium 137 mmol/L (135-145)
[2023-08-28 06:53] LABS: Basophils Percent Auto 0.4 % (0-2); Eosinophils Percent Auto 0.1 % (0-4); Hematocrit 39.2 % (42.0-52.0); Hemoglobin 13.6 g/dl (14.0-18.0); Imm Gran Abs Auto 0.03 X10*3/uL (0.00-0.03); Imm Gran Pct Auto 0.4 % (0.0-0.4); Lymphocytes Absolute Auto 1.4 X10*3/uL (1.2-4.9); Lymphocytes Percent Auto 20.4 % (20-40); Mean Corpuscular HGB Conc 34.7 g/dl (31.0-36.0); Mean Corpuscular Hemoglobin 28.1 pg (27.0-33.0); Monocytes Absolute Auto 0.8 X10*3/uL (0.1-1.2); Monocytes Percent Auto 11.3 % (2-11); Neutrophils Absolute Auto 4.7 x10*3/uL (2.0-8.3); Neutrophils Percent Auto 67.4 % (45-73); Red Blood Count 4.84 X10*6/uL (4.60-5.80); Red Cell Distribution Width 13.7 % (11.0-16.0)
[2023-08-28 06:58] LABS: Platelet Count 99 X10*3/uL (160-400)
--- NOTE | 2023-08-28 07:00 | CA_ITS ---
Transthoracic Echocardiogram Patient (Last, First, Middle): Raheem Diaz M Gender: Male Date of : 1965 Age: 57 Procedure Date: 08/28/2023 Procedure Type: Transthoracic Echocardiogram Location: S3E Height: 175.26 cm Weight: 137.89 kg BSA: 2.47 m2 Heart Rate: 93 bpm BP: 156 / 85 mmHg [employer] Supervisor: CRISTI Referring MD: Jenni JOHNSON Computer Education Professor: Panfilo Donald MD Symptoms: strep bacteremia Study Quality: Technically Difficult ECG Rhythm: Sinus Conclusions: - Limited visualization of cardiac valve without obvious vegetations on this study, cardiac valvular Dopplers grossly within normal limits Findings Procedure Information The quality of the study was technically difficult. The study quality is limited by patients body habitus. Aortic Valve The aortic valve structure and function is likely normal. There is no aortic valve stenosis. There is no aortic valve regurgitation. Mitral Valve Likely normal mitral valve structure and function. There is trace mitral valve regurgitation. There is no mitral valve stenosis. Pulmonic Valve The pulmonic valve was not well visualized. Tricuspid Valve The tricuspid valve was not well visualized. Recommendations, Care & Conclusions Consider a VERÓNICA if clinically appropriate. Measurements 2D Linear Measurements IVSd: 1.20 0.6-0.9/0.6-1.0 cm LVIDd: 5.75 3.9-5.3/4.2-5.9 cm LVIDd Index: 2.33 2.4-3.2/2.2-3.1 cm/m2 LVIDs: 3.71 2.0-3.6 cm LVPWd: 0.84 0.7-1.1 cm LV Mass: 294.30 67-162/88-224 g LV Mass Index: 119.15 43-95/49-115 g/m2 LVOT Diam: 2.50 3.0+(-)1.3 cm Mitral Valve MV Pk E: 0.71 MV PK A: 0.99 MV Decel Time: 166.00 E/A: 0.70 E'Lateral: 6.74 E'Medial: 6.42 E/E' Med: 11.00 E/E' Lat: 10.50 PHT: 49.00 MVA PHT: 4.49 Decel Russell: 4.25 LVOT LVOT Pk Hemal: 1.06 LVOT Mn Hemal: 0.69 LVOT VTI: 0.19 LVOT Pk Grad: 4.00 LVOT Mn Grad: 2.00 LVOT Diam: 2.50 LVOT Area: 4.91 Diastolic Function MV Pk E: 0.71 MV Pk A: 0.99 E/A: 0.70 E'Medial: 6.42 E/E' Med: 11.00 E' Laterial: 6.74 E/E' Lat: 10.50 Tricuspid Valve RA Press: 15.00 Updated in Other Vendor System with Status of Final Panfilo Donald MD electronically signed on 08/28/2023 12:05:50 PM with status of Final
[2023-08-28 07:18] VITALS: BP 156/85; PULSE 90; RESP 18; TEMP 36.5; O2SAT 94
[2023-08-28 07:39] LABS: Glucose, Whole Blood 177 mg/dL (60-115)
[2023-08-28] MEDS: Insulin Lispro 100 UNIT/ML 3 ML VIAL SUBCUT ×3 (07:52→20:09)
--- NOTE | 2023-08-28 08:36 | P.PNIM_ITS ---
Subjective Subjective Date of Service: 08/28/23 Interval History: fevers Physical Exam 2 Vital Signs: Vital Signs: Last Vital Signs Temp 97.7 F 08/28/23 07:18 Pulse 90 08/28/23 07:18 Resp 18 08/28/23 07:18 BP 156/85 H 08/28/23 07:18 Pulse Ox 94 08/28/23 07:18 O2 Del Method Room Air 08/28/23 07:18 BMI result Body Mass Index 44.9 General: AO X 3, no acute distress Resp: CTA bilateral, no accessory muscles used CVS: S1,S2,RRR GI: soft, non tender, non distended Neuro: motor grossly intact, alert Psych: appropriate affect, appropriate insight Objective Data Active Medications Acetaminophen (Acetaminophen 325 Mg Tablet) 650 mg PO Q6H PRN PRN Reason: Pain, Mild (Pain Scale 1-3) Last Admin: 08/27/23 18:25 Dose: 650 mg Documented By: LENCHO Atorvastatin Calcium (Atorvastatin Calcium 20 Mg Tablet) 20 mg PO BEDTIME [facility] Last Admin: 08/27/23 19:59 Dose: 20 mg Documented By: HENRRY Celecoxib (Celecoxib 200 Mg Capsule) 200 mg PO BID [facility] Last Admin: 08/27/23 19:59 Dose: 200 mg Documented By: HENRRY Diphenhydramine HCl (Diphenhydramine Hcl 25 Mg Capsule) 25 mg PO DAILY PRN PRN Reason: Allergy Symptoms Enoxaparin Sodium (Enoxaparin Sodium 40 Mg/0.4 Ml Syringe) 40 mg SUBCUT Q24H [facility] Last Admin: 08/27/23 17:01 Dose: 40 mg Documented By: LENCHO Glucose (Glucose Gel 15 Gm Gel..Gram.) 15 gm PO Q15M PRN; Protocol PRN Reason: per Hypoglycemia Standing Ord. Guaifenesin (Guaifenesin 200 Mg/10 Ml 10 Ml Liquid) 10 ml PO Q4H PRN PRN Reason: Cough Ceftriaxone Sodium 2 gm/ (Sodium Chloride) 50 mls @ 100 mls/hr IV Q24H YIMI Dextrose (D10) 250 mls @ 750 mls/hr IV Q15M PRN; Protocol PRN Reason: per Hypoglycemia Standing Ord. Insulin Human Lispro (Insulin Lispro 100 Unit/Ml 3 Ml Vial) 0 unit SUBCUT QIDACHS [facility]; Protocol Last Admin: 08/28/23 07:52 Dose: 2 unit Documented By: REJI Lisinopril (Lisinopril 40 Mg Tablet) 40 mg PO DAILY [facility]; Protocol Magnesium Hydroxide (Milk Of Magnesia 30 Ml Oral.Susp) 30 ml PO DAILY PRN PRN Reason: Constipation Ondansetron HCl (Ondansetron Hcl 4 Mg/2 Ml Vial) 4 mg IVPUSH Q8H PRN PRN Reason: Nausea and Vomiting Sodium Chloride (0.9 % Sodium Chloride Flush 3 Ml Syringe) 3 ml IVFLUSH QSHIFT [facility] Last Admin: 08/27/23 19:59 Dose: 3 ml Documented By: HENRRY Labs 08/28/23 05:44 08/28/23 05:44 Labs: Laboratory Results - last 24 hr 08/27/23 08/27/23 08/27/23 13:04 14:10 19:15 MCV 80.8 MCH 28.2 MCHC 34.9 RDW 13.6 Plt Count 94 L MPV 10.8 Immature Gran % (Auto) 0.3 Neut % (Auto) 86.5 H Lymph % (Auto) 5.7 L [place] % (Auto) 7.2 Eos % (Auto) 0.0 Baso % (Auto) 0.3 Lymph # (Auto) 0.4 L [place] # (Auto) 0.5 Eos # (Auto) 0.0 Baso # (Auto) 0.0 Abs Immat Gran (auto) 0.02 Absolute Neuts (auto) 5.5 Absolute Nucleated RBC 0.000 Nucleated RBC % (auto) 0.0 ESR 10 Anion Gap 17 Estim Creat Clear Calc 137.2 Estimated GFR > 60 POC Glucose 140 H Random Glucose 167 H Estimat Average Glucose 143 Hemoglobin A1c % 6.6 H Lactic Acid 1.5 Calcium 8.8 Magnesium 1.8 Total Bilirubin 1.1 H Direct Bilirubin 0.4 AST 37 ALT 46 H Alkaline Phosphatase 92 C-Reactive Protein 11.77 H Total Protein 6.9 Albumin 3.9 Urine Color Dark Yellow Urine Appearance Clear Urine pH 5.5 Ur Specific [place] 1.025 Urine Protein 100 (2+) H Urine Glucose (UA) 250 H Urine Ketones Trace Urine Blood Trace H Urine Nitrite Negative Ur Leukocyte Esterase Negative Urine RBC 0-2 Urine WBC 0-5 Ur Squamous Epith Cells 6-10 Urine Bacteria None Seen Hyaline Casts 0-2 08/28/23 08/28/23 05:44 07:16 MCV 81.0 MCH 28.1 MCHC 34.7 RDW 13.7 Plt Count 99 L MPV 12.0 Immature Gran % (Auto) 0.4 Neut % (Auto) 67.4 Lymph % (Auto) 20.4 [place] % (Auto) 11.3 H Eos % (Auto) 0.1 Baso % (Auto) 0.4 Lymph # (Auto) 1.4 [place] # (Auto) 0.8 Eos # (Auto) 0.0 Baso # (Auto) 0.0 Abs Immat Gran (auto) 0.03 Absolute Neuts (auto) 4.7 Absolute Nucleated RBC 0.000 Nucleated RBC % (auto) 0.0 ESR Anion Gap 11 L Estim Creat Clear Calc 185.2 Estimated GFR > 60 POC Glucose 177 H Random Glucose 130 H Estimat Average Glucose Hemoglobin A1c % Lactic Acid Calcium 8.4 Magnesium Total Bilirubin Direct Bilirubin AST ALT Alkaline Phosphatase C-Reactive Protein Total Protein Albumin Urine Color Urine Appearance Urine pH Ur Specific [place] Urine Protein Urine Glucose (UA) Urine Ketones Urine Blood Urine Nitrite Ur Leukocyte Esterase Urine RBC Urine WBC Ur Squamous Epith Cells Urine Bacteria Hyaline Casts Microbiology Microbiology Results: Microbiology 08/27/23 13:04 Blood Culture - Preliminary Blood - Venous Prelim: GPC Gram Stain only 08/27/23 12:55 Blood Culture - Preliminary Blood - Venous Prelim: GPC Gram Stain only Assessment and Plan (1) Bacteremia due to group B Streptococcus: Status: Acute Plan 57M PMH ALPHONSE, hypertension, morbid obesity presented with fevers and group B strep bacteremia Group B strep bacteremia Source unclear at this time Continue ceftriaxone Will DC vancomycin Check dental CT, possible source, reporting left lower dental pain Follow-up ID Echo Repeat cultures New onset diabetes with hyperglycemia Insulin sliding scale, likely metformin at discharge Hypertension Lisinopril ALPHONSE CPAP at night Morbid obesity Weight loss recommended DVT prophylaxis Lovenox Full Code reason for continued hospitalization: Bacteremia Quality Stroke Does the patient have a stroke diagnosis?: No VTE Prior VTE?: No VTE Risk Level:: Medical - moderate - high VTE Device Contraindication: Treatment Not Indicated VTE Drug Contraindication: N/A - Med Ordered
[2023-08-28 08:44] VITALS: BP 156/85
[2023-08-28] MEDS: lisinopriL 40 MG TABLET PO (08:44)
[2023-08-28] MEDS: Celecoxib 200 MG CAPSULE PO ×2 (08:44→19:29)
[2023-08-28] MEDS: 0.9 % Sodium Chloride Flush 3 ML SYRINGE IVFLUSH ×2 (08:45→15:45)
--- NOTE | 2023-08-28 09:15 | MHC.CM.PN ---
CM ATTEMPTED TO MEET W/PT HOWEVER PT OFF UNIT, CM TO REVISIT.
--- NOTE | 2023-08-28 10:51 | MHC.CM.PN ---
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 GOAL IS HOME AND RETURN TO WORK. CM DID DISCUSS POSSIBILITY OF NEEDING CARE HOME IV ABX AND PT AND AGREEABLE TO REFERRALS TO [facility] ACCEPTS [facility], ID CONSULT PENDING. PT VERIFIES PCP ON FILE AND HAS BEEN EDUCATED AND COMPLETED AN HCP NAMING HIS HERMILA IRENE HIS [facility] AND SON HALINA Flores [phone] AND DTR URIEL KIKI [phone] HIS ALTERNATES, COPY UPLOADED TO [facility] AND PLACED IN CHART.
[2023-08-28 11:12] LABS: Glucose, Whole Blood 141 mg/dL (60-115)
[2023-08-28 15:02] VITALS: BP 135/80; PULSE 83; RESP 18; TEMP 36.6; O2SAT 94
[2023-08-28] MEDS: cefTRIAXone sodium 2 GM in 0.9 % Sodium Chloride 50 ML IV (15:46)
[2023-08-28] MEDS: Enoxaparin Sodium 40 MG/0.4 ML SYRINGE SUBCUT (15:46)
[2023-08-28 16:07] LABS: Glucose, Whole Blood 158 mg/dL (60-115)
[2023-08-28] MEDS: Atorvastatin Calcium 20 MG TABLET PO (19:29)
[2023-08-28] MEDS: Melatonin 3 MG TABLET 6 MG PO (19:29)
[2023-08-28] MEDS: Acetaminophen 325 MG TABLET 650 MG PO (19:29)
[2023-08-28] MEDS: diphenhydrAMINE HCL 25 MG CAPSULE PO (19:31)
[2023-08-28 19:57] VITALS: BP 145/68; PULSE 83; RESP 13; TEMP 36.1; O2SAT 94
[2023-08-28 20:14] LABS: Glucose, Whole Blood 156 mg/dL (60-115)
--- NOTE | 2023-08-28 23:20 | W.PM.IDCN ---
History of Present Illness Data of Consult Service Date: 08/28/23 Requesting physician: Ron Coleman Primary Care Provider: Shine Elizabeth, [facility] HPI Reason for consult: sepsis He presents with six days fever with foot discomfort as well. He has been peeling right great toe foot area,plantar. Group B strep 5/,5/6 Review of Systems Review of Systems: Yes all other systems are reviewed and are negative [facility] Past Medical History Medical History Family history of cardiovascular disease Elevated ferritin HTN (hypertension) High triglycerides ALPHONSE (obstructive sleep apnea) Morbid obesity Nicotine dependence, cigarettes, uncomplicated Fatty liver History of colon polyps (~2018) Osteoarthritis of both knees History of Lyme disease Family History Family History Father CVD (cardiovascular disease) History of heart attack, Onset Age: 50 Mother No problems noted. Brother No problems noted. Sister No problems noted. Sister No problems noted. Sister No problems noted. Paternal Uncle History of heart attack, Onset Age: 50 Surgical History Surgical History History of colonoscopy History of mandibular surgery Social History Social History Household Members: Spouse Housing: House Do you presently have visiting nurse or other home services: No Alcohol intake: current Alcohol intake frequency: 0-2 drinks per day Alcohol type: beer Patient Tobacco Use Status: Current everyday Tobacco user Tobacco use type: Cigarette Cigarettes Per Day: 2 Years Smoked: 40 e-Cigarette/Vaping Use: Former Use Second Hand Smoke Exposure: No Substance Use Type: Marijuana service: No Current occupational status: employed 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 Cognitive needs: No Hearing needs: No Vision needs: No Meds Allergies Allergy/AdvReac Type Severity Reaction Status Date / Time SEASONAL ALLERGIES Allergy Intermediate RUNNY NOSE Uncoded 08/27/23 12:32 NASAL CONGESTION Active Medications: Current Medications Acetaminophen (Acetaminophen 325 Mg Tablet) 650 mg PO Q6H PRN PRN Reason: Pain, Mild (Pain Scale 1-3) Last Admin: 08/28/23 19:29 Dose: 650 mg Atorvastatin Calcium (Atorvastatin Calcium 20 Mg Tablet) 20 mg PO BEDTIME [facility] Last Admin: 08/28/23 19:29 Dose: 20 mg Celecoxib (Celecoxib 200 Mg Capsule) 200 mg PO BID [facility] Last Admin: 08/28/23 19:29 Dose: 200 mg Diphenhydramine HCl (Diphenhydramine Hcl 25 Mg Capsule) 25 mg PO DAILY PRN PRN Reason: Allergy Symptoms Last Admin: 08/28/23 19:31 Dose: 25 mg Enoxaparin Sodium (Enoxaparin Sodium 40 Mg/0.4 Ml Syringe) 40 mg SUBCUT Q24H [facility] Last Admin: 08/28/23 15:46 Dose: 40 mg Glucose (Glucose Gel 15 Gm Gel..Gram.) 15 gm PO Q15M PRN; Protocol PRN Reason: per Hypoglycemia Standing Ord. Guaifenesin (Guaifenesin 200 Mg/10 Ml 10 Ml Liquid) 10 ml PO Q4H PRN PRN Reason: Cough Ceftriaxone Sodium 2 gm/ (Sodium Chloride) 50 mls @ 100 mls/hr IV Q24H [facility] Last Infusion: 08/28/23 16:18 Dose: Infused Dextrose (D10) 250 mls @ 750 mls/hr IV Q15M PRN; Protocol PRN Reason: per Hypoglycemia Standing Ord. Insulin Human Lispro (Insulin Lispro 100 Unit/Ml 3 Ml Vial) 0 unit SUBCUT QIDACHS [facility]; Protocol Last Admin: 08/28/23 20:09 Dose: 2 unit Lisinopril (Lisinopril 40 Mg Tablet) 40 mg PO DAILY [facility]; Protocol Last Admin: 08/28/23 08:44 Dose: 40 mg Magnesium Hydroxide (Milk Of Magnesia 30 Ml Oral.Susp) 30 ml PO DAILY PRN PRN Reason: Constipation Melatonin (Melatonin 3 Mg Tablet) 6 mg PO BEDTIME PRN PRN Reason: Insomnia Last Admin: 08/28/23 19:29 Dose: 6 mg Ondansetron HCl (Ondansetron Hcl 4 Mg/2 Ml Vial) 4 mg IVPUSH Q8H PRN PRN Reason: Nausea and Vomiting Sodium Chloride (0.9 % Sodium Chloride Flush 3 Ml Syringe) 3 ml IVFLUSH QSHIFT [facility] Last Admin: 08/28/23 23:06 Dose: Not Given Home Medications ?Medication ?Instructions ?Recorded ?Confirmed ?Last Taken ?Type acetaminophen 500 mg tablet 500 mg PO Q4H PRN fever or pain 08/27/23 08/27/23 08/26/23 05:00 History diphenhydramine HCl 25 mg capsule 25 mg PO DAILY PRN Allergy Symptoms 08/27/23 08/27/23 Unknown History (Benadryl) ibuprofen 600 mg tablet 600 mg PO Q4H PRN fever or pain 08/27/23 08/27/23 08/26/23 05:00 History Physical Exam Vital Signs: Vital Signs: Last Vital Signs Temp 96.9 F 08/28/23 19:57 Pulse 83 08/28/23 19:57 Resp 13 08/28/23 19:57 BP 145/68 H 08/28/23 19:57 Pulse Ox 94 08/28/23 19:57 O2 Del Method Room Air 08/28/23 19:57 BMI result Body Mass Index 44.9 Extrem: Other: right plantar foot wound great toe Results Labs 08/28/23 05:44 08/28/23 05:44 Labs: Short CBC 08/28/23 Range/Units 05:44 WBC 7.0 (4.8-10.8) X10*3/uL Hgb 13.6 L (14.0-18.0) g/dl Hct 39.2 L (42.0-52.0) % Plt Count 99 L (160-400) X10*3/uL BMP 08/28/23 05:44 Sodium 137 Potassium 3.4 Chloride 103 Carbon Dioxide 26 BUN 13 Creatinine 0.60 Calcium 8.4 Microbiology Microbiology Results: Microbiology 08/27/23 12:55 Blood - Venous Blood Culture - Preliminary Prelim: GPC Gram Stain only 08/27/23 13:04 Blood - Venous Blood Culture - Preliminary Prelim: GPC Gram Stain only Assessment and Plan (1) Bacteremia due to group B Streptococcus: Status: Acute Plan Possible Group B strep foot source area is reddened Would check CT or MRI right foot evalute OM Continue CTX,6 weeks if OM
[2023-08-29 03:22] VITALS: BP 112/65; PULSE 68; RESP 16; TEMP 36.1; O2SAT 95
[2023-08-29 06:49] LABS: Hematocrit 40.6 % (42.0-52.0); Hemoglobin 13.9 g/dl (14.0-18.0); Mean Corpuscular HGB Conc 34.2 g/dl (31.0-36.0); Mean Corpuscular Hemoglobin 27.7 pg (27.0-33.0); Mean Corpuscular Volume 80.9 fL (80.0-98.0); Mean Platelet Volume 12.4 fL (9.4-12.4); Platelet Count 106 X10*3/uL (160-400); Red Blood Count 5.02 X10*6/uL (4.60-5.80); Red Cell Distribution Width 13.5 % (11.0-16.0); White Blood Count 7.9 X10*3/uL (4.8-10.8)
[2023-08-29 07:07] LABS: Anion Gap 12 (12-20); Blood Urea Nitrogen 16 mg/dL (9-16); Calcium 8.9 mg/dL (8.4-10.2); Carbon Dioxide 30 mmol/L (22-29); Chloride 101 mmol/L (96-108); Creatinine Clr Calc Pharmacy 165.9; Estimated Glomerular Filt Rate > 60; Glucose Fasting 116 mg/dL (60-99); Potassium 3.5 mmol/L (3.3-5.1); Sodium 139 mmol/L (135-145)
[2023-08-29 07:33] LABS: Glucose, Whole Blood 120 mg/dL (60-115)
[2023-08-29 07:37] VITALS: BP 163/82; PULSE 77; RESP 18; TEMP 36.6; O2SAT 95
[2023-08-29 09:00] VITALS: BP 163/82
[2023-08-29] MEDS: lisinopriL 40 MG TABLET PO (09:00)
[2023-08-29] MEDS: Celecoxib 200 MG CAPSULE PO ×2 (09:01→20:33)
[2023-08-29] MEDS: 0.9 % Sodium Chloride Flush 3 ML SYRINGE IVFLUSH ×3 (09:01→20:35)
[2023-08-29] MEDS: diphenhydrAMINE HCL 25 MG CAPSULE PO (09:01)
--- NOTE | 2023-08-29 09:19 | HO.PM.IMPN ---
Subjective Subjective Date of Service: 08/29/23 Interval History: no further fevers Physical Exam Vital Signs: Vital Signs: Last Vital Signs Temp 97.8 F 08/29/23 07:37 Pulse 77 08/29/23 07:37 Resp 18 08/29/23 07:37 BP 163/82 H 08/29/23 09:00 Pulse Ox 95 08/29/23 07:37 O2 Del Method Room Air 08/29/23 07:37 BMI result Body Mass Index 44.9 Extrem: Other: right plantar foot wound great toe Objective Data Active Medications Acetaminophen (Acetaminophen 325 Mg Tablet) 650 mg PO Q6H PRN PRN Reason: Pain, Mild (Pain Scale 1-3) Last Admin: 08/28/23 19:29 Dose: 650 mg Documented By: TOSHIA Atorvastatin Calcium (Atorvastatin Calcium 20 Mg Tablet) 20 mg PO BEDTIME [facility] Last Admin: 08/28/23 19:29 Dose: 20 mg Documented By: TOSHIA Celecoxib (Celecoxib 200 Mg Capsule) 200 mg PO BID [facility] Last Admin: 08/29/23 09:01 Dose: 200 mg Documented By: REJI Diphenhydramine HCl (Diphenhydramine Hcl 25 Mg Capsule) 25 mg PO DAILY PRN PRN Reason: Allergy Symptoms Last Admin: 08/29/23 09:01 Dose: 25 mg Documented By: REJI Enoxaparin Sodium (Enoxaparin Sodium 40 Mg/0.4 Ml Syringe) 40 mg SUBCUT Q24H [facility] Last Admin: 08/28/23 15:46 Dose: 40 mg Documented By: REJI Glucose (Glucose Gel 15 Gm Gel..Gram.) 15 gm PO Q15M PRN; Protocol PRN Reason: per Hypoglycemia Standing Ord. Guaifenesin (Guaifenesin 200 Mg/10 Ml 10 Ml Liquid) 10 ml PO Q4H PRN PRN Reason: Cough Ceftriaxone Sodium 2 gm/ (Sodium Chloride) 50 mls @ 100 mls/hr IV Q24H [facility] Last Infusion: 08/28/23 16:18 Dose: Infused Documented By: REJI Dextrose (D10) 250 mls @ 750 mls/hr IV Q15M PRN; Protocol PRN Reason: per Hypoglycemia Standing Ord. Insulin Human Lispro (Insulin Lispro 100 Unit/Ml 3 Ml Vial) 0 unit SUBCUT QIDACHS [facility]; Protocol Last Admin: 08/29/23 07:51 Dose: Not Given Documented By: REJI Non-Admin Reason: No Insulin Coverage Lisinopril (Lisinopril 40 Mg Tablet) 40 mg PO DAILY [facility]; Protocol Last Admin: 08/29/23 09:00 Dose: 40 mg Documented By: REJI Magnesium Hydroxide (Milk Of Magnesia 30 Ml Oral.Susp) 30 ml PO DAILY PRN PRN Reason: Constipation Melatonin (Melatonin 3 Mg Tablet) 6 mg PO BEDTIME PRN PRN Reason: Insomnia Last Admin: 08/28/23 19:29 Dose: 6 mg Documented By: TOSHIA Ondansetron HCl (Ondansetron Hcl 4 Mg/2 Ml Vial) 4 mg IVPUSH Q8H PRN PRN Reason: Nausea and Vomiting Sodium Chloride (0.9 % Sodium Chloride Flush 3 Ml Syringe) 3 ml IVFLUSH QSHIFT [facility] Last Admin: 08/29/23 09:01 Dose: 3 ml Documented By: REJI Labs 08/29/23 05:59 08/29/23 05:59 Labs: Laboratory Results - last 24 hr 08/28/23 08/28/23 08/28/23 11:06 15:58 19:59 MCV MCH MCHC RDW Plt Count MPV Absolute Nucleated RBC Nucleated RBC % (auto) Anion Gap Estim Creat Clear Calc Estimated GFR POC Glucose 141 H 158 H 156 H Fasting Glucose Calcium 08/29/23 08/29/23 05:59 07:25 MCV 80.9 MCH 27.7 MCHC 34.2 RDW 13.5 Plt Count 106 L MPV 12.4 Absolute Nucleated RBC 0.000 Nucleated RBC % (auto) 0.0 Anion Gap 12 Estim Creat Clear Calc 165.9 Estimated GFR > 60 POC Glucose 120 H Fasting Glucose 116 H Calcium 8.9 Microbiology Microbiology Results: Microbiology 08/27/23 12:55 Blood Culture - Preliminary Blood - Venous Prelim: GPC Gram Stain only 08/27/23 13:04 Blood Culture - Preliminary Blood - Venous Prelim: GPC Gram Stain only Assessment and Plan (1) Bacteremia due to group B Streptococcus: Status: Acute Plan 57M PMH ALPHONSE, hypertension, morbid obesity presented with fevers and group B strep bacteremia Group B strep bacteremia Source unclear at this time, ?right 1st toe Continue ceftriaxone Echo negative Repeat cultures check ct toe to rule out om New onset diabetes with hyperglycemia Insulin sliding scale, likely metformin at discharge Hypertension Lisinopril ALPHONSE CPAP at night Morbid obesity Weight loss recommended DVT prophylaxis Lovenox Full Code reason for continued hospitalization: Bacteremia Quality Stroke Does the patient have a stroke diagnosis?: No VTE Prior VTE?: No VTE Risk Level:: Medical - moderate - high VTE Device Contraindication: Treatment Not Indicated VTE Drug Contraindication: N/A - Med Ordered
[2023-08-29] MEDS: iohexoL 350 MG/ML 75 ML INFUS..BTL 85 ML IV (10:39)
[2023-08-29 11:20] LABS: Glucose, Whole Blood 192 mg/dL (60-115)
[2023-08-29] MEDS: Insulin Lispro 100 UNIT/ML 3 ML VIAL SUBCUT (11:52)
--- NOTE | 2023-08-29 12:19 | MHC.CM.PN ---
EMR REVIEWED, PT W/BACTEREMIA, FOOT CT PENDING TO R/O OSTEOMYELITIS AND DETERMINE IF HE WILL NEED [facility]ENIOR [facility]IVING IV ABX, REFERRAL TO [facility] [place], CM WILL CONT TO FOLLOW DC NEEDS.
[2023-08-29 15:05] VITALS: BP 142/72; PULSE 72; RESP 18; TEMP 36.6; O2SAT 95
[2023-08-29] MEDS: cefTRIAXone sodium 2 GM in 0.9 % Sodium Chloride 50 ML IV (15:21)
[2023-08-29] MEDS: Enoxaparin Sodium 40 MG/0.4 ML SYRINGE SUBCUT (15:22)
[2023-08-29 16:19] LABS: Glucose, Whole Blood 110 mg/dL (60-115)
[2023-08-29 19:15] VITALS: BP 142/72; PULSE 77; RESP 18; TEMP 36.1; O2SAT 94
[2023-08-29 20:25] LABS: Glucose, Whole Blood 128 mg/dL (60-115)
[2023-08-29] MEDS: Atorvastatin Calcium 20 MG TABLET PO (20:33)
[2023-08-29] MEDS: Melatonin 3 MG TABLET 6 MG PO (21:48)
[2023-08-30 02:41] VITALS: BP 131/72; PULSE 78; RESP 18; TEMP 36.2; O2SAT 96
[2023-08-30 07:47] VITALS: BP 157/74; PULSE 74; RESP 18; TEMP 36.3; O2SAT 93
[2023-08-30 08:00] LABS: Glucose, Whole Blood 121 mg/dL (60-115)
[2023-08-30] MEDS: lisinopriL 40 MG TABLET PO (08:38)
[2023-08-30] MEDS: Celecoxib 200 MG CAPSULE PO ×2 (08:38→20:22)
[2023-08-30] MEDS: 0.9 % Sodium Chloride Flush 3 ML SYRINGE IVFLUSH ×3 (08:38→20:22)
--- NOTE | 2023-08-30 10:14 | P.PNIM_ITS ---
Subjective Subjective Date of Service: 08/30/23 Interval History: no complaints Physical Exam 2 Vital Signs: Vital Signs: Last Vital Signs Temp 97.4 F 08/30/23 07:47 Pulse 74 08/30/23 07:47 Resp 18 08/30/23 07:47 BP 157/74 H 08/30/23 07:47 Pulse Ox 93 08/30/23 07:47 O2 Del Method Room Air 08/30/23 07:47 BMI result Body Mass Index 44.9 Extrem: Other: right plantar foot wound great toe Objective Data Active Medications Acetaminophen (Acetaminophen 325 Mg Tablet) 650 mg PO Q6H PRN PRN Reason: Pain, Mild (Pain Scale 1-3) Last Admin: 08/28/23 19:29 Dose: 650 mg Documented By: TOSHIA Atorvastatin Calcium (Atorvastatin Calcium 20 Mg Tablet) 20 mg PO BEDTIME [facility] Last Admin: 08/29/23 20:33 Dose: 20 mg Documented By: LESLIE Celecoxib (Celecoxib 200 Mg Capsule) 200 mg PO BID [facility] Last Admin: 08/30/23 08:38 Dose: 200 mg Documented By: JORDAN Diphenhydramine HCl (Diphenhydramine Hcl 25 Mg Capsule) 25 mg PO DAILY PRN PRN Reason: Allergy Symptoms Last Admin: 08/29/23 09:01 Dose: 25 mg Documented By: REJI Enoxaparin Sodium (Enoxaparin Sodium 40 Mg/0.4 Ml Syringe) 40 mg SUBCUT Q24H [facility] Last Admin: 08/29/23 15:22 Dose: 40 mg Documented By: REJI Glucose (Glucose Gel 15 Gm Gel..Gram.) 15 gm PO Q15M PRN; Protocol PRN Reason: per Hypoglycemia Standing Ord. Guaifenesin (Guaifenesin 200 Mg/10 Ml 10 Ml Liquid) 10 ml PO Q4H PRN PRN Reason: Cough Ceftriaxone Sodium 2 gm/ (Sodium Chloride) 50 mls @ 100 mls/hr IV Q24H [facility] Last Infusion: 08/29/23 16:49 Dose: Infused Documented By: REJI Dextrose (D10) 250 mls @ 750 mls/hr IV Q15M PRN; Protocol PRN Reason: per Hypoglycemia Standing Ord. Insulin Human Lispro (Insulin Lispro 100 Unit/Ml 3 Ml Vial) 0 unit SUBCUT QIDACHS [facility]; Protocol Last Admin: 08/30/23 08:35 Dose: Not Given Documented By: JORDAN Non-Admin Reason: No Insulin Coverage Lisinopril (Lisinopril 40 Mg Tablet) 40 mg PO DAILY [facility]; Protocol Last Admin: 08/30/23 08:38 Dose: 40 mg Documented By: JORDAN Magnesium Hydroxide (Milk Of Magnesia 30 Ml Oral.Susp) 30 ml PO DAILY PRN PRN Reason: Constipation Melatonin (Melatonin 3 Mg Tablet) 6 mg PO BEDTIME PRN PRN Reason: Insomnia Last Admin: 08/29/23 21:48 Dose: 6 mg Documented By: LESLIE Ondansetron HCl (Ondansetron Hcl 4 Mg/2 Ml Vial) 4 mg IVPUSH Q8H PRN PRN Reason: Nausea and Vomiting Sodium Chloride (0.9 % Sodium Chloride Flush 3 Ml Syringe) 3 ml IVFLUSH QSHIFT [facility] Last Admin: 08/30/23 08:38 Dose: 3 ml Documented By: JORDAN Labs 08/29/23 05:59 08/29/23 05:59 Labs: Laboratory Results - last 24 hr 08/29/23 08/29/23 08/29/23 11:13 16:03 20:20 POC Glucose 192 H 110 128 H 08/30/23 07:54 POC Glucose 121 H Microbiology Microbiology Results: Microbiology 08/27/23 13:04 Blood Culture - Preliminary Blood - Venous Strep agalactiae (Grp B) Coag negative Staphylococcus Coag negative Staphylococcus#2 08/27/23 12:55 Blood Culture - Preliminary Blood - Venous Strep agalactiae (Grp B) 08/29/23 05:59 Blood Culture - Preliminary Blood - Venous No growth after 24 hours. 08/29/23 05:59 Blood Culture - Preliminary Blood - Venous No growth after 24 hours. Assessment and Plan (1) Bacteremia due to group B Streptococcus: Status: Acute Plan 57M PMH ALPHONSE, hypertension, morbid obesity presented with fevers and group B strep bacteremia Group B strep bacteremia Source unclear at this time, ?right 1st toe Continue ceftriaxone Echo negative Repeat cultures engative to date ct toe negative for OM follow up Id, ?6wks iv abx New onset diabetes with hyperglycemia Insulin sliding scale, likely metformin at discharge Hypertension Lisinopril ALPHONSE CPAP at night Morbid obesity Weight loss recommended DVT prophylaxis Lovenox Full Code reason for continued hospitalization: iv abx Quality Stroke Does the patient have a stroke diagnosis?: No VTE Prior VTE?: No VTE Risk Level:: Medical - moderate - high VTE Device Contraindication: Treatment Not Indicated VTE Drug Contraindication: N/A - Med Ordered
[2023-08-30 11:28] LABS: Glucose, Whole Blood 169 mg/dL (60-115)
[2023-08-30] MEDS: Insulin Lispro 100 UNIT/ML 3 ML VIAL SUBCUT ×2 (12:08→20:22)
[2023-08-30 12:13] VITALS: BP 145/86; PULSE 70; RESP 18; TEMP 36.3; O2SAT 94
[2023-08-30 14:54] VITALS: BP 161/85; PULSE 73; RESP 18; TEMP 36.4; O2SAT 97
[2023-08-30] MEDS: cefTRIAXone sodium 2 GM in 0.9 % Sodium Chloride 50 ML IV (15:56)
[2023-08-30] MEDS: Enoxaparin Sodium 40 MG/0.4 ML SYRINGE SUBCUT (15:56)
[2023-08-30 16:31] LABS: Glucose, Whole Blood 128 mg/dL (60-115)
[2023-08-30 18:42] VITALS: BP 156/87; PULSE 78; RESP 18; TEMP 36.8; O2SAT 94
[2023-08-30 19:34] VITALS: BP 150/64; PULSE 77; RESP 17; TEMP 36.5; O2SAT 94
[2023-08-30] MEDS: Atorvastatin Calcium 20 MG TABLET PO (20:22)
[2023-08-30 20:30] LABS: Glucose, Whole Blood 167 mg/dL (60-115)
[2023-08-30] MEDS: Melatonin 3 MG TABLET 6 MG PO (22:30)
[2023-08-31 03:26] VITALS: BP 136/64; PULSE 79; RESP 18; TEMP 36.3; O2SAT 96
[2023-08-31 07:12] VITALS: BP 127/71; PULSE 70; RESP 18; TEMP 36.1; O2SAT 95
[2023-08-31 07:20] LABS: Glucose, Whole Blood 128 mg/dL (60-115)
[2023-08-31 07:41] VITALS: BP 127/71
[2023-08-31] MEDS: lisinopriL 40 MG TABLET PO (07:41)
[2023-08-31] MEDS: Celecoxib 200 MG CAPSULE PO ×2 (07:41→20:18)
[2023-08-31] MEDS: 0.9 % Sodium Chloride Flush 3 ML SYRINGE IVFLUSH ×3 (07:41→20:19)
--- NOTE | 2023-08-31 08:28 | P.PNIM_ITS ---
Subjective Subjective Date of Service: 08/31/23 Interval History: no complaints Physical Exam 2 Vital Signs: Vital Signs: Last Vital Signs Temp 97 F 08/31/23 07:12 Pulse 70 08/31/23 07:12 Resp 18 08/31/23 07:12 BP 127/71 08/31/23 07:41 Pulse Ox 95 08/31/23 07:12 O2 Del Method Room Air, BiPAP 08/31/23 07:12 BMI result Body Mass Index 44.9 Extrem: Other: right plantar foot wound great toe Objective Data Active Medications Acetaminophen (Acetaminophen 325 Mg Tablet) 650 mg PO Q6H PRN PRN Reason: Pain, Mild (Pain Scale 1-3) Last Admin: 08/28/23 19:29 Dose: 650 mg Documented By: TOSHIA Atorvastatin Calcium (Atorvastatin Calcium 20 Mg Tablet) 20 mg PO BEDTIME [facility] Last Admin: 08/30/23 20:22 Dose: 20 mg Documented By: JOVANNY Celecoxib (Celecoxib 200 Mg Capsule) 200 mg PO BID [facility] Last Admin: 08/31/23 07:41 Dose: 200 mg Documented By: TYLER Diphenhydramine HCl (Diphenhydramine Hcl 25 Mg Capsule) 25 mg PO DAILY PRN PRN Reason: Allergy Symptoms Last Admin: 08/29/23 09:01 Dose: 25 mg Documented By: REJI Enoxaparin Sodium (Enoxaparin Sodium 40 Mg/0.4 Ml Syringe) 40 mg SUBCUT Q24H [facility] Last Admin: 08/30/23 15:56 Dose: 40 mg Documented By: JORDAN Glucose (Glucose Gel 15 Gm Gel..Gram.) 15 gm PO Q15M PRN; Protocol PRN Reason: per Hypoglycemia Standing Ord. Guaifenesin (Guaifenesin 200 Mg/10 Ml 10 Ml Liquid) 10 ml PO Q4H PRN PRN Reason: Cough Ceftriaxone Sodium 2 gm/ (Sodium Chloride) 50 mls @ 100 mls/hr IV Q24H [facility] Last Infusion: 08/30/23 16:32 Dose: Infused Documented By: JORDAN Dextrose (D10) 250 mls @ 750 mls/hr IV Q15M PRN; Protocol PRN Reason: per Hypoglycemia Standing Ord. Insulin Human Lispro (Insulin Lispro 100 Unit/Ml 3 Ml Vial) 0 unit SUBCUT QIDACHS [facility]; Protocol Last Admin: 08/31/23 07:20 Dose: Not Given Documented By: TYLER Non-Admin Reason: No Insulin Coverage Lisinopril (Lisinopril 40 Mg Tablet) 40 mg PO DAILY [facility]; Protocol Last Admin: 08/31/23 07:41 Dose: 40 mg Documented By: TYLER Magnesium Hydroxide (Milk Of Magnesia 30 Ml Oral.Susp) 30 ml PO DAILY PRN PRN Reason: Constipation Melatonin (Melatonin 3 Mg Tablet) 6 mg PO BEDTIME PRN PRN Reason: Insomnia Last Admin: 08/30/23 22:30 Dose: 6 mg Documented By: JOVANNY Ondansetron HCl (Ondansetron Hcl 4 Mg/2 Ml Vial) 4 mg IVPUSH Q8H PRN PRN Reason: Nausea and Vomiting Sodium Chloride (0.9 % Sodium Chloride Flush 3 Ml Syringe) 3 ml IVFLUSH QSHIFT [facility] Last Admin: 08/31/23 07:41 Dose: 3 ml Documented By: TYLER Labs 08/29/23 05:59 08/29/23 05:59 Labs: Laboratory Results - last 24 hr 08/30/23 08/30/23 08/30/23 11:23 16:23 20:16 POC Glucose 169 H 128 H 167 H 08/31/23 07:12 POC Glucose 128 H Microbiology Microbiology Results: Microbiology 08/27/23 13:04 Blood Culture - Final Blood - Venous Strep agalactiae (Grp B) Coag negative Staphylococcus Coag negative Staphylococcus#2 08/27/23 12:55 Blood Culture - Final Blood - Venous Strep agalactiae (Grp B) 08/29/23 05:59 Blood Culture - Preliminary Blood - Venous No growth after 24 hours. 08/29/23 05:59 Blood Culture - Preliminary Blood - Venous No growth after 24 hours. Assessment and Plan (1) Bacteremia due to group B Streptococcus: Status: Acute Plan 57M PMH ALPHONSE, hypertension, morbid obesity presented with fevers and group B strep bacteremia Group B strep bacteremia Source ?right 1st toe acute OM Continue ceftriaxone iv 6 weeks, end october 07, 2023 Echo negative Repeat cultures engative to date plan for picc 09/01/23 New onset diabetes with hyperglycemia Insulin sliding scale, likely metformin at discharge Hypertension Lisinopril ALPHONSE CPAP at night Morbid obesity Weight loss recommended DVT prophylaxis Lovenox Full Code reason for continued hospitalization: iv abx Quality Stroke Does the patient have a stroke diagnosis?: No VTE Prior VTE?: No VTE Risk Level:: Medical - moderate - high VTE Device Contraindication: Treatment Not Indicated VTE Drug Contraindication: N/A - Med Ordered
[2023-08-31 11:09] LABS: Glucose, Whole Blood 166 mg/dL (60-115)
[2023-08-31] MEDS: Insulin Lispro 100 UNIT/ML 3 ML VIAL SUBCUT (11:31)
[2023-08-31 12:15] LABS: COVID-19 Test Negative (Negative); IDNOW Serial# 6674DD1D
[2023-08-31 15:32] VITALS: BP 168/82; PULSE 75; RESP 18; TEMP 36.6; O2SAT 91
[2023-08-31 16:02] LABS: Glucose, Whole Blood 121 mg/dL (60-115)
[2023-08-31] MEDS: cefTRIAXone sodium 2 GM in 0.9 % Sodium Chloride 50 ML IV (16:08)
[2023-08-31] MEDS: Enoxaparin Sodium 40 MG/0.4 ML SYRINGE SUBCUT (16:08)
[2023-08-31 19:24] VITALS: BP 170/86; PULSE 77; RESP 18; TEMP 37.1; O2SAT 94
[2023-08-31] MEDS: Atorvastatin Calcium 20 MG TABLET PO (20:18)
[2023-08-31 20:29] LABS: Glucose, Whole Blood 146 mg/dL (60-115)
[2023-09-01 07:23] VITALS: BP 150/77; PULSE 69; RESP 18; TEMP 36.6; O2SAT 95
[2023-09-01 07:32] LABS: Glucose, Whole Blood 113 mg/dL (60-115)
[2023-09-01] MEDS: lisinopriL 40 MG TABLET PO (07:56)
[2023-09-01] MEDS: 0.9 % Sodium Chloride Flush 3 ML SYRINGE IVFLUSH (07:57)
[2023-09-01] MEDS: Celecoxib 200 MG CAPSULE PO (07:58)
--- NOTE | 2023-09-01 08:25 | P.CDIM_ITS ---
PROVIDER RESPONSE TEXT: To clarify, the appropriate diagnosis supported by the clinical indicators: No, right plantar foot wound great toe is not related to / associated with / due to Diabetes QUERY TEXT: PHYSICIAN'S DOCUMENTATION REQUEST Date of Query: 09/01/2023 07:30 AM EDT Patient Name: Raheem Diaz Admit Date: 08/27/2023 Dear Ron Coleman, A review of the medical record indicates additional documentation may be needed. Please review below and update the documentation accordingly. Documentation includes the conditions of right plantar foot wound great toe and new onset diabetes Please clarify the relationship between these conditions: Yes, right plantar foot wound great toe is related to / associated with / due to new onset Diabetes No, right plantar foot wound great toe is not related to / associated with / due to Diabetes Other (explain) Clinically unable to determine (explain) Thank you, Minnie Jones RN Use of terms such as suspected, likely, concern for, or probable (associated with a specific diagnosi s that is being evaluated, monitored, or treated as if it exists) are acceptable and can be coded in the inpatient se tting, when documented at the time of discharge. Please use your independent medical judgment in providing your response. THIS QUERY IS PART OF THE PERMANENT MEDICAL RECORD
--- NOTE | 2023-09-01 08:32 | P.DS_ITS ---
DS: Providers Provider Date of Service: 09/01/23 Date of admission: 08/27/23 15:58 Primary care physician: CECY Mahmood Consults: 08/27/23 16:03 Consult to Infectious Diseases Routine Consulting Provider: [facility] [place] Reason for consultation: strep b bacteremia Consult to Wound Care Routine Reason for consultation: chronic wound R great toe DS: Diagnosis Discharge Diagnosis (1) Bacteremia due to group B Streptococcus: Status: Acute DS: Summary Hospital Course Hospital Course: from initial hpi: 57-year-old male with history of ALPHONSE compliant with CPAP, hypertension, hyperlipidemia, morbid obesity with BMI greater than 44 who is a current for cigarette per day smoker presents to the ED earlier today for evaluation of fevers up to 103.8 with rigors ongoing for several days. He did present to the ED yesterday due to the fevers with negative workup, thought to be secondary to viral syndrome. However, today, blood cultures x1 grew group B strep. His who is at bedside also states that he has been somewhat confused intermittently. He does have a wound on the right great toe that has been present for months without any purulent drainage or surrounding erythema. There is no associated pain. He does report history of crush injury to the right great toe about 20 years ago but has had no issues since then. He does report a productive cough that has been ongoing several days that only occurs at night with postnasal drip. No sore throat, congestion, abdominal pain, nausea, vomiting, diarrhea, dysuria, hematuria, wheezing, shortness of breath, chest pain. He does state that he has urinary frequency at baseline and since he has had fevers has also been incontinent. He reports occasional marijuana use. Reports drinking 7-8 beers over the weekend but otherwise no alcohol use. Since arrival, has had low-grade fevers of 100.6 but was febrile to 102.7 in the ER last night. He has been tachycardic to 116. Vitals otherwise stable. There is no leukocytosis. Platelets are 94. Renal function normal, electrolyte levels normal. Hepatic function largely unremarkable with slightly elevated bilirubin of 1.1 and ALT of 46. CRP 11.77, ESR 10. Urinalysis not indicative of infection. X-ray of the right great toe shows diffuse soft tissue swelling of the right great toe without any radiographic evidence of osteomyelitis. Chest x-ray pending. In the ED, had some given IV ceftriaxone, Tylenol, and normal saline. hospital course: Patient was admitted for group B strep bacteremia, source likely right 1st toe acute osteomyelitis. Was treated with IV ceftriaxone and blood cultures cleared. Was seen by infectious disease who recommended 6 weeks which will be completed 10/07/2023. Echocardiogram was negative. Patient noted to have new onset diabetes with A1c of 6.6. He was treated with insulin and hospital will be discharged on metformin. For hypertension was continued on lisinopril. For ALPHONSE should use CPAP at night. For morbid obesity weight loss recommended. Time Attestation Discharge Coordination Time (in mins): 35 Quality: Safe Use of Opioids Does Pt have an Active Cancer Diagnosis on the Problem List?: No Quality: Stroke Does the patient have a stroke diagnosis?: No Physical Exam Vital Signs: Vital Signs: Last Vital Signs Temp 97.8 F 09/01/23 07:23 Pulse 69 09/01/23 07:23 Resp 18 09/01/23 07:23 BP 150/77 H 09/01/23 07:23 Pulse Ox 95 09/01/23 07:23 O2 Del Method Room Air 09/01/23 07:23 BMI result Body Mass Index 44.9 Extrem: Other: right plantar foot wound great toe DS: Data Data Completed and Pending Labs on day of discharge: Laboratory Results - last 24 hr 08/31/23 08/31/23 08/31/23 10:52 11:25 15:56 POC Glucose 166 H 121 H COVID-19 ([facility]) Negative COVID-19 Clin Com See Note 08/31/23 09/01/23 20:21 07:27 POC Glucose 146 H 113 COVID-19 ([facility]) COVID-19 Clin Com Preliminary micro results at discharge 08/29/23 05:59 Blood Culture - Preliminary Blood - Venous No growth after 48 hours. 08/29/23 05:59 Blood Culture - Preliminary Blood - Venous No growth after 48 hours. Discharge Plan Discharge Anticipated Discharge Date/Time: 09/01/23 08:29 Patient Disposition: Home Health Service Discharge Diagnosis: gbs bacteremia Referrals: [facility] [Other] - 1 Week (They will provide: IV medication Rocephin. Home infusion supplies.) Shine Elizabeth, INDIVIDUAL PENSION CONSULTANT-BC [Primary Care Provider] - 1 Week Leisa Curry MD [Physician] - 1 Week Discharge Medications: New ceftriaxone 2 gram Recon Soln 2 g IV Q24H Qty: 0 0RF metformin 500 mg tablet 500 mg PO BIDWMEAL Qty: 180 0RF Continued (DME) blood-glucose meter [FreeStyle Lite Meter] Kit See Rx Instructions .Route Qty: 1 0RF Rx Instructions: Use to check fasting blood sugar and a random blood sugar twice daily (DME) FreeStyle Lite Strips Strip See Rx Instructions .Route Qty: 100 3RF Rx Instructions: Use to check fasting blood sugar and a random blood sugar twice daily (DME) lancets [FreeStyle Lancets] 28 gauge misc See Rx Instructions .Route Qty: 100 3RF Rx Instructions: Use to check fasting blood sugar and a random blood sugar twice daily atorvastatin 20 mg tablet 20 mg PO BEDTIME Qty: 90 1RF lisinopril 40 mg tablet 40 mg PO DAILY Qty: 90 1RF celecoxib 200 mg capsule 200 mg PO BID 30 Days Qty: 60 3RF acetaminophen 500 mg tablet 500 mg PO Q4H PRN (Reason: fever or pain) ibuprofen 600 mg tablet 600 mg PO Q4H PRN (Reason: fever or pain) diphenhydramine HCl [Benadryl] 25 mg Capsule 25 mg PO DAILY PRN (Reason: Allergy Symptoms) sildenafil 50 mg tablet 50 mg PO DAILY PRN (Reason: sexual activity) Qty: 14 0RF Rx Instructions: administer 30 minutes to 4 hours before activity Discharge Orders: Discharge Order (Routine); Ordered 09/01/23 Ordered By: oRn Coleman Diet: Advance to usual diet Activity on Discharge: No heavy lifting Stand Alone Forms: Patient Portal Discharge page Print Language: Vietnamese Activity Restrictions/Additional Instructions: Topical Wound Care Recommendations: 1. Right Great Toe - Cleanse with soap and water, pat dry. Pain with Betadine allow to dry, cover with dry gauze. Change Daily. Recommend follow up out patient Wound Clinic at [address] [place] [phone] and to call for an appointment at time of discharge. [phone].? Recommend follow up with Branch Maker of your choosing for nail trimming and callus removal. Care Plan Goals: recovery Health Concerns: bacteremia, DM Plan of Treatment: starting metformin plan for 6 weeks iv ceftriaxone, (end october 07, 2023) avoid excessive bending of picc line arm or heavy lifting Assessment: see above
--- NOTE | 2023-09-01 09:30 | HO.PICC ---
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 Following completion of [place] Protocol the skin and soft tissues were anesthetized with 1% Lidocaine plain. Using ultrasound guidance, right brachial vein access was obtained. Over an 0.018 wire through peel-away sheath, a 4FR single lumen PASV PICC line was positioned. Catheter length is 47cm internal length, 0cm external length, for a total trimmed length of 47cm. The procedure was performed in rm 272. Tip verification was performed by Lesa Hicks with Sherlock 3CG. Tip located in SVC. Ultrasound was used to document vein patency and for needle entry. A formal ultrasound picture and cardiac rhythm strip was recorded. Vascular Director Intelligence Analysis Programs has released the line for use and it is currently dressed with a StatLock, Tegaderm, and CHG disc. Verification has been performed for blood return and line patency. Arm Circumference: 39cm Equipment: [employer] 100eC SOLO with [id number] Catheter Type: 4FR single lumen PASV PICC Lot #: [id number]
[2023-09-01 10:17] VITALS: BP 159/86; PULSE 81; RESP 20; TEMP 36.9; O2SAT 95
[2023-09-01 11:12] LABS: Glucose, Whole Blood 132 mg/dL (60-115)
--- NOTE | 2023-09-01 13:40 | HO.WOUND ---
Wound Consult: Initial 57yr old? Male admitted to [facility] on 08/27/23 - See progress notes and H&P for detailed history.? Wound consult placed for right Great Toe Wound.? Patient agreeable to assessment and photo documentation.?Patient agreeable to follow up with outpt wound clinic and or podiatry for nail trimming and callus maintenance. Patient reports he often self treats his callus and may have caused a wound but does not recall recent drainage to the site. Right Great Toe Etiology: ??Suspected Traumatic wound secondary to self callus removal Measurements: 0.3cm x 0.3cm x 0.2cm Wound Bed: red pink Drainage / Odor: None noted Edges: ? callused Yee wound: Dry callused and intact ? No Induration, Fluctuance or Warmth noted Pain: mild tenderness reported Goals of Treatment: ? Betadine to keep dry and cover with dry gauze - follow up with out pt wound clinic and or podiatry Recommendations: 1. Right Great Toe - Cleanse with soap and water, pat dry. Pain with Betadine allow to dry, cover with dry gauze. Change Daily. Recommend follow up out patient Wound Clinic at [address] [place] [phone] and to call for an appointment at time of discharge. [phone].? Recommend follow up with Biofuels Plant Operations Engineer of your choosing for nail trimming and callus removal. Re-consult wound care Nurse for wound deterioration or wound changes.
--- NOTE | 2023-09-01 14:25 | PC.NURSE ---
Pt with PICC placed to right upper arm. Anxious about going home with line and administration of antibiotics. Dr Coleman in to speak with pt. Awaiting IV infusion company pt teaching. Denies pain, right great toe evaluated by wound nurse and recommendations discussed with the patient. To be discharged home this afternoon
--- NOTE | 2023-09-01 15:20 | MHC.CM.PN ---
Patient received a PICC line this morning. Script + Flush orders, and documentation have been sent to [facility]. Referral have been sent to agencies accepting HNE. One agency offered services, [facility]. The patient will stay with his dtr @ [address] [place] [address] this week. He will return to his home Friday; because his is quarantined (5 days Covid+) through Friday.. MD has been reminded that a Face 2 Face is needed.
[2023-09-01 15:21] VITALS: BP 159/83; PULSE 75; RESP 18; TEMP 36.1; O2SAT 96
--- NOTE | 2023-09-01 15:21 | W.MHC.F2F ---
Service Date Service Date: 09/01/23 Encounter Date of encounter: 09/01/23 Reasons for Services Signs and symptoms assessed: difficulty walkiung Reason for correction: medication management, medication treatment and teach disease management Homebound: Leaving the home is medically contraindicated at this time without the asist of a device and/or another person due th the listed conditions above and below. Reason homebound: unsteady gait / fall risk Certification: Based on the above findings, I certify that this patient is confined to the home and needs intermittent correction care, physical therapy and/or speech therapy, or continues to need occupational therapy. The patient is under my care, and I have initiated the establishment of the plan of care. The patient will be followed by a physician who will periodically review the plan of care. Time Spent With Patient Time: Total time managing care of this patient today ____ minutes.
[2023-09-01] MEDS: 0.9 % Sodium Chloride Flush 10 ML SYRINGE 5 ML IVFLUSH (15:56)
[2023-09-01] MEDS: cefTRIAXone sodium 2 GM in 0.9 % Sodium Chloride 50 ML IV (15:57)
[2023-09-01 16:24] LABS: Glucose, Whole Blood 112 mg/dL (60-115)
== END 2023-09-01 18:10 | disposition home health service (06) | DRG 344 ==
LOC: HO.ED 15:07 → HO.EDOVER 16:13 → HO.S3 18:34
PROVIDERS: Physician Assistant; Admitting Provider Physician Assistant; Emergency Provider Emergency Medicine; PCP Nurse Practitioner Family; Visit Provider Internal Medicine
DX: M86.171 Other acute osteomyelitis, right ankle and foot (principal); R78.81 Bacteremia; K76.0 Fatty (change of) liver, not elsewhere classified; E11.65 Type 2 diabetes mellitus with hyperglycemia; E66.01 Morbid (severe) obesity due to excess calories; E78.5 Hyperlipidemia, unspecified; B95.1 Streptococcus, group B, as the cause of diseases classified elsewhere; G47.33 Obstructive sleep apnea (adult) (pediatric); S90.934A Unspecified superficial injury of right lesser toe(s), initial encounter; X58.XXXS Exposure to other specified factors, sequela; S90.93 Unspecified superficial injury of toes; F17.210 Nicotine dependence, cigarettes, uncomplicated; I10 Essential (primary) hypertension; Z71.6 Tobacco abuse counseling; Z20.822 Contact with and (suspected) exposure to COVID-19; Z68.41 Body mass index [BMI] 40.0-44.9, adult; Z79.899 Other long term (current) drug therapy
CPT/HCPCS: 36415; 36573; 70486; 71046; 73660; 73701; 80048; 80076; 81001; 82947; 83036; 83605; 83735; 85025; 85027; 85652; 86140; 87040; 87147; 87205; 87635; 93308; 99285; C1751; J0696; J1650; J3370; J3371; Q9957; Q9967

== ENCOUNTER 2023-08-27 15:58 | Outpatient (BNV) | payer OTHER, SELFPAY | END 2023-08-28 07:00 | PROVIDERS: Admitting Provider Physician Assistant; Emergency Provider Emergency Medicine; PCP Nurse Practitioner Family; Visit Provider Internal Medicine Cardiovascular Disease | DX: R78.81 Bacteremia (principal) | CPT/HCPCS: 93308; 93325 ==

== ENCOUNTER → 2023-08-27 15:58 | Outpatient (BNV) | payer OTHER, SELFPAY | PROVIDERS: Admitting Provider Physician Assistant; Emergency Provider Emergency Medicine; PCP Nurse Practitioner Family; Visit Provider Physician Assistant | DX: R78.81 Bacteremia (principal); B95.1 Streptococcus, group B, as the cause of diseases classified elsewhere | CPT/HCPCS: 99223; 99232; 99233; 99239; G0180 ==

== ENCOUNTER → 2023-08-27 15:58 | Outpatient (BNV) | payer OTHER, SELFPAY | PROVIDERS: Admitting Provider Physician Assistant; Emergency Provider Emergency Medicine; PCP Nurse Practitioner Family; Visit Provider Internal Medicine | DX: R78.81 Bacteremia (principal); B95.1 Streptococcus, group B, as the cause of diseases classified elsewhere | CPT/HCPCS: 99222 ==

== ENCOUNTER 2023-09-08 08:58 | Outpatient (AMB) | payer OTHER, SELFPAY ==
--- NOTE | 2023-09-08 09:04 | A.OFFPC_ITS ---
Vital Signs 09/08/23 09:05 Height 5 ft 9 in Weight 288 lb BMI 42.5 BP 130/80 Blood Pressure Location Lt brachial Position Sitting Pulse 102 H Pulse Source Pulse Oximeter Pulse Oximetry (%) 95 Oxygen Delivery Method Room Air Intake Visit Reasons: HDF Intake Note: Patient here for HDF. Allergies SEASONAL ALLERGIES Allergy (Intermediate, Uncoded 09/08/23 09:06) RUNNY NOSE NASAL CONGESTION Tobacco use date assessed: 09/08/23 Dental Screening Dental Screen Date: 09/08/23 Did you have a dental visit in the last 12 months?: Yes Did you have a dental problem in the last 6 months where you did not have access to dental care?: No Was dental information given to patient?: Patient has dentist HPI HDF HPI Details Pt was seen in the ER 08/24 due to fevers. Workup was negative, thought to be secondary to viral syndrome. Pt was seen in the ER again on 08/26 with ongoing fevers, headache, and fatigue. He also has a chronic wound on his right big toe that is intermittently draining blood. Labs showed no leukocytosis, platelets are 94, renal function normal, electrolyte levels normal, hepatic function largely unremarkable with slightly elevated bilirubin of 1.1 and ALT of 46. CRP 11.77, ESR 10. UA not indicative of infection. Blood cultures grew group B strep. XR of the right great toe shows diffuse soft tissue swelling of the right great toe without any radiographic evidence of osteomyelitis. Pt was given IV ceftriaxone, tylenol, and fluids. Blood cultures cleared. Infectious disease was consulted and recommended 6 weeks of antibiotics. Pt was found to have new onset diabetes, A1C was 6.6. He was treated with insulin in the hospital and was d/c on metformin. Pt was given the number for the wound clinic to make an appointment. He is being seen by [facility] for dressing changes (including PICC line dressing changes). Denies any fevers, chills, tenderness to wound. Referring to podiatry as well. Will refer to nurse navigator due to new diabetes. Pt is working on his diet and walking. He is losing weight. Pt will be following up with ID, who also orders regular blood draws [facility] Medical History Family history of cardiovascular disease Elevated ferritin HTN (hypertension) High triglycerides ALPHONSE (obstructive sleep apnea) Morbid obesity Nicotine dependence, cigarettes, uncomplicated Fatty liver History of colon polyps (~2018) Osteoarthritis of both knees History of Lyme disease Surgical History History of colonoscopy History of mandibular surgery Family History Father CVD (cardiovascular disease) History of heart attack, Onset Age: 50 Mother No problems noted. Brother No problems noted. Sister No problems noted. Sister No problems noted. Sister No problems noted. 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 [employer] Cognitive needs: No Hearing needs: No Vision needs: No Questionnaire Thrive Questionnaire Date Thrive assessed: 08/28/23 Review of Systems Const Reports as per HPI Physical exam (Primary Care) Vital Signs: Last Vital Signs Pulse 102 H 09/08/23 09:05 BP 130/80 09/08/23 09:05 Pulse Ox 95 09/08/23 09:05 Oxygen Delivery Method Room Air 09/08/23 09:05 BMI result Body Mass Index 42.5 Tobacco/Smoking Status: Tobacco use Status Tobacco use date assessed 09/08/23 09/08/23 09:11 Patient Tobacco Use Status Current everyday Tobacco 09/08/23 09:05 Tobacco use type Cigarette 09/08/23 09:05 e-Cigarette/Vaping Use Former Use 09/08/23 09:05 Thrive Assessment: Date of Thrive Assessment Date Thrive assessed 08/28/23 09/08/23 09:05 Const General: cooperative Nutritional Appearance: obese morbidly obese Orientation/consciousness: patient oriented x3 Resp Effort & Inspection: normal respiratory effort Auscultation: clear to auscultation bilaterally and diminished lung sounds Cardio Rate: regular rate Rhythm: regular rhythm Heart sounds: S1 normal heart sound present and S2 normal heart sound present Skin Other: left medial big toe with open lesion, no active drainage, no surrounding erythema or tenderness Neuro General: patient oriented x3 Extrem Other: + DP, PT pulses to right foot, bilat feet + sensation with use of monofilament Psych Appearance: grossly normal Mental Status: mental status grossly normal Speech and movement: Normal speech and movement present Affect: normal affect Attitude: cooperative Thought process: Normal thought process present Thought content: Normal thought content present Insight: Good insight present (Psych) Judgement: Good judgement present (Psych) Assessment and Plan Assessment & Plan (1) Bacteremia due to group B Streptococcus: Code(s): R78.81 - Bacteremia; B95.1 - Streptococcus, group B, as the cause of diseases classified elsewhere Plan: currently no fevers, on antibiotics (IV-PICC line, seeing ID as well) (2) Open toe wound: Code(s): S91.109A - Unspecified open wound of unspecified toe(s) without damage to nail, initial encounter Plan: VNA dressing changes of left toe, and dressing to PICC. Daily antibiotics, podiatry referral being placed, pt will contact wound clinic for appt. (3) PICC (peripherally inserted central catheter) in place: Code(s): Z45.2 - Encounter for adjustment and management of vascular access device Plan: Being seen by VNA for dressing changes (4) Toe infection: Code(s): L08.9 - Local infection of the skin and subcutaneous tissue, unspecified Plan: Daily antibiotics, podiatry referral being placed, pt will contact wound clinic for appt (5) Screening for prostate cancer: Code(s): Z12.5 - Encounter for screening for malignant neoplasm of prostate (6) Newly diagnosed diabetes: Code(s): E11.9 - Type 2 diabetes mellitus without complications Plan: on metformin, referring to [facility], pt is already working on diet, will send meter and supplies according to insurance Plan The patient agreed to the use of a certified medical aide for this encounter. Scribed for CECY Jain by Francine Bejarano certified medical aide, on 09/08/2023 at 9:40 EST. Orders: Orders Complete Blood Count Auto Diff Today B95.1 - Streptococcus, group B, as the cause of diseases classified elsewhere, L08.9 - Local infection of the skin and subcutaneous tissue, unspecified, R78.81 - Bacteremia, S91.109A - Unspecified open wound of unspecified toe(s) without damage to nail, initial encounter, Z45.2 - Encounter for adjustment and management of vascular access device TSH reflex Free T4 Today B95.1 - Streptococcus, group B, as the cause of diseases classified elsewhere, L08.9 - Local infection of the skin and subcutaneous tissue, unspecified, R78.81 - Bacteremia, S91.109A - Unspecified open wound of unspecified toe(s) without damage to nail, initial encounter, Z45.2 - Encounter for adjustment and management of vascular access device Lipid Panel Today B95.1 - Streptococcus, group B, as the cause of diseases classified elsewhere, L08.9 - Local infection of the skin and subcutaneous tissue, unspecified, R78.81 - Bacteremia, S91.109A - Unspecified open wound of unspecified toe(s) without damage to nail, initial encounter, Z45.2 - Encounter for adjustment and management of vascular access device Comprehensive [place]. Panel Fast Today B95.1 - Streptococcus, group B, as the cause of diseases classified elsewhere, L08.9 - Local infection of the skin and subcutaneous tissue, unspecified, R78.81 - Bacteremia, S91.109A - Unspecified open wound of unspecified toe(s) without damage to nail, initial encounter, Z45.2 - Encounter for adjustment and management of vascular access device UA CC w/rflx Micro + Cult Today B95.1 - Streptococcus, group B, as the cause of diseases classified elsewhere, L08.9 - Local infection of the skin and subcutaneous tissue, unspecified, R78.81 - Bacteremia, S91.109A - Unspecified open wound of unspecified toe(s) without damage to nail, initial encounter, Z45.2 - Encounter for adjustment and management of vascular access device Prostate Specific Antigen Scr Today Z12.5 - Encounter for screening for malignant neoplasm of prostate Referrals Podiatry Referral B95.1 - Streptococcus, group B, as the cause of diseases classified elsewhere, L08.9 - Local infection of the skin and subcutaneous tissue, unspecified, R78.81 - Bacteremia Nurse Navigator Referral E11.9 - Type 2 diabetes mellitus without complications Coding Level of Care Code Est Pt Level 4 (44464) Diagnoses Bacteremia due to group B Streptococcus R78.81; B95.1 Open toe wound S91.109A PICC (peripherally inserted central catheter) in place Z45.2 Toe infection L08.9 Screening for prostate cancer Z12.5 Newly diagnosed diabetes E11.9 Time Spent (min) 30
[2023-09-08 09:05] VITALS: BP 130/80; PULSE 102; O2SAT 95; BMI 42.5
== END 2023-09-08 10:20 | disposition home or self-care (01) ==
PROVIDERS: PCP Nurse Practitioner Family; Visit Provider Nurse Practitioner Family
DX: R78.81 Bacteremia (principal); B95.1 Streptococcus, group B, as the cause of diseases classified elsewhere; S91.109A Unspecified open wound of unspecified toe(s) without damage to nail, initial encounter; Z45.2 Encounter for adjustment and management of vascular access device; L08.9 Local infection of the skin and subcutaneous tissue, unspecified; Z12.5 Encounter for screening for malignant neoplasm of prostate; E11.9 Type 2 diabetes mellitus without complications
CPT/HCPCS: 99214

== ENCOUNTER 2023-09-12 12:39 | Inpatient (IN) | payer OTHER, SELFPAY ==
[2023-09-12] VITALS (8 sets, daily range): BP systolic 118–151; BP diastolic 65–96; PULSE 74–99; RESP 18–24; TEMP 36.5–37; O2SAT 92–96; BMI 43.0; BMI 42.4; BMI 42.5
--- NOTE | ~2023-09-12 | US_ITS ---
EXAMINATION: US VENOUS WITH DOPPLER UPPER EXTREMITY, RIGHT CLINICAL INFORMATION: Erythema. Rule out DVT. COMPARISON: None available. TECHNIQUE: Ultrasound of the upper extremity is performed using compression sonography and color and pulse Doppler flow with assessment of augmentation of flow. There is also imaging and Doppler assessment of the jugular and subclavian veins. Spectral analysis with color-flow imaging is performed. FINDINGS: There is right upper extremity PICC line via the right brachial vein. There is thrombus seen in the right axillary vein. The right internal jugular, subclavian, brachial, basilic and cephalic veins are patent. US/US venous duplex UE RT IMPRESSION: Right axillary vein DVT. Right upper extremity PICC line in the right brachial vein. Findings were communicated to Dr. Pugh by the cardiac cath technologist at the conclusion of the exam.
--- NOTE | ~2023-09-12 | CT_ITS ---
EXAMINATION: CT ANGIOGRAM OF THE CHEST WITH AND WITHOUT CONTRAST (CT PULMONARY ANGIOGRAM FOR PE) CLINICAL INFORMATION: Reason for Exam hypoxia, exertional dyspnea, RUE PICC line, ?PE COMPARISON: None available. TECHNIQUE: Prior to contrast administration, noncontrast localization images were obtained. Subsequently, multidetector volumetric imaging was performed from the thoracic inlet to below the diaphragms following the administration of 65 mL Omnipaque 350 intravenous contrast. No contrast reaction reported Sagittal, coronal, and MIP oblique sagittal reformatted images were obtained on the CT workstation, uploaded to PACS, and reviewed. This CT examination was performed using dose optimization techniques as appropriate, variously including the following: *Automated exposure control *Adjustment of mA and/or kV according to patient size (this includes techniques or standardized protocols for targeted exams where dose is matched to indication/reason for exam; i.e. extremities or head) *Use of iterative reconstruction technique Total exam dose-length product 524 mGy-cm FINDINGS: QUALITY OF STUDY/CONTRAST BOLUS: Satisfactory. PULMONARY ARTERIES: Large pulmonary embolism extending into all lobes on the right. THORACIC AORTA: No aneurysm. LUNG: Limited by low lung volumes. Left basilar airspace disease involving the lingula and lower lobe in the dependent portions. Right lung appears clear. Patent central bronchi. PLEURA: No pleural effusion or pneumothorax. MEDIASTINUM: Heart upper normal in size to mildly enlarged. No pericardial effusion. No hilar or mediastinal lymphadenopathy by size criteria. Asymmetry of the thyroid gland suggesting right thyroidectomy. Tip of right upper extremity PICC line in superior vena cava. CORONARY ARTERY CALCIFICATION: Severe. CHEST WALL/AXILLA: No axillary or internal mammary lymphadenopathy by size criteria. OSSEOUS STRUCTURES: No acute finding. Suspect bamboo spine. Osteoarthritis of the shoulders. UPPER ABDOMEN: Unremarkable. No reflux of contrast into the hepatic veins to suggest elevated right heart pressures. CT/CT angio chest PE protocol IMPRESSION: Large right pulmonary embolism extending into all lobes on the right. Left basilar airspace disease involving the lingula and lower lobe in the dependent portions. Suspect ankylosing spondylitis. Asymmetry of the thyroid gland suggesting right thyroidectomy. Recommend clinical correlation. Dr. Pugh was directly informed of the presence of pulmonary embolism by telephone at 3:15 PM on September 12, 2023. VTE: positive
--- NOTE | 2023-09-12 12:57 | ED_ITS ---
HPI - General Adult General Chief complaint: Dyspnea Stated complaint: Low 02 and dizziness. Eval. Per ems Time Seen by Provider: 09/12/23 12:50 Source: patient Mode of arrival: EMS Limitations: no limitations History of Present Illness HPI narrative: This is a 57-year-old man with a past medical history of ALPHONSE compliant with CPAP, hypertension, hyperlipidemia, recent admission August 2023 with GBS bacteremia 2/2 right 1st toe acute osetmyelitis treated with IV antibiotics s/p RUE PICC line and newly diagnosed diabetes mellitus (on Metformin) with chronic by EMS for evaluation of dyspnea. 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 Patient states walking 1500 steps while he was there. He states experiencing dyspnea on exertion while performing these errands. He attributed it to the warm weather. He states a visiting nurse came today and found his oxygen level to be low at 84%. He states feeling lightheaded at the time, but states no syncope. He states no lightheadedness now. He states no associated exertional chest pain. He states no headache, neck pain, vision changes, fevers, chills, cough, back pain, abdominal pain, nausea/vomiting, diarrhea, paresthesias or urinary symptoms. He states feeling well at this time. Related Data Home Medications ?Medication ?Instructions ?Recorded ?Confirmed acetaminophen 500 mg tablet 500 mg PO Q4H PRN fever or pain 08/27/23 08/27/23 diphenhydramine HCl 25 mg capsule 25 mg PO DAILY PRN Allergy Symptoms 08/27/23 08/27/23 (Benadryl) ibuprofen 600 mg tablet 600 mg PO Q4H PRN fever or pain 08/27/23 08/27/23 Previous Rx's ?Medication ?Instructions ?Recorded sildenafil 50 mg tablet 50 mg PO DAILY PRN sexual activity 11/08/22 #14 tabs blood sugar diagnostic (FreeStyle #100 ea 11/13/22 Lite Strips) blood-glucose meter (FreeStyle #1 ea 11/13/22 Lite Meter kit) lancets 28 gauge (FreeStyle #100 ea 11/13/22 Lancets) atorvastatin 20 mg tablet 20 mg PO BEDTIME #90 tabs 08/11/23 celecoxib 200 mg capsule 200 mg PO BID 30 days #60 caps 08/26/23 lisinopril 40 mg tablet 40 mg PO DAILY #90 tabs 08/26/23 ceftriaxone 2 gram solution for 2 g IV Q24H #0 ea 09/01/23 injection metformin 500 mg tablet 500 mg PO BIDWMEAL #180 tabs 09/01/23 Allergies Allergy/AdvReac Type Severity Reaction Status Date / Time SEASONAL ALLERGIES Allergy Intermediate Runny Nose Uncoded 09/12/23 13:04 Review of Systems 2 Review of Systems: ROS as per HPI [facility] Past Medical History Medical History Family history of cardiovascular disease Elevated ferritin HTN (hypertension) High triglycerides ALPHONSE (obstructive sleep apnea) Morbid obesity Nicotine dependence, cigarettes, uncomplicated Fatty liver History of colon polyps (~2018) Osteoarthritis of both knees History of Lyme disease Surgical History History of colonoscopy History of mandibular surgery Family History Family History Father CVD (cardiovascular disease) History of heart attack, Onset Age: 50 Mother No problems noted. Brother No problems noted. Sister No problems noted. Sister No problems noted. Sister No problems noted. Paternal Uncle History of heart attack, Onset Age: 50 Social History Social History Household Members: Spouse Housing: House Do you presently have visiting nurse or other home services: No Alcohol intake: current Alcohol intake frequency: 0-2 drinks per day Alcohol type: beer Patient Tobacco Use Status: Current everyday Tobacco user Tobacco use type: Cigarette Cigarettes Per Day: 2 Years Smoked: 40 e-Cigarette/Vaping Use: Former Use Second Hand Smoke Exposure: No Substance Use Type: Marijuana Advance Directives: No Advance Directives Information Provided: Yes service: No Current occupational status: employed 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 [employer] Cognitive needs: No Hearing needs: No Vision needs: No Physical Exam ED Vital Signs: Vital Signs - 24 hr 09/12/23 12:53 09/12/23 13:00 09/12/23 15:16 Temperature 98.5 F 98.1 F Pulse Rate 96 97 74 Respiratory Rate 18 24 H Blood Pressure 119/77 119/77 118/82 Pulse Oximetry 93 94 95 Oxygen Delivery Method Room Air Room Air Room Air BMI result Body Mass Index 42.4 Gen: NAD, AOx3 HEENT: NCAT, EOMI, normal conjunctiva CV: RRR Pulm: CTAB, no increased work of breathing GI: Soft, NTND, no rebound, guarding or rigidity MSK: Right upper extremity PICC line with faint erythema and associated induration and without fluctuance/tenderness to palpation/purulence, right great toe plantar foot wound with faint erythema and without purulence/focal tenderness to palpation/edema/crepitus Neuro: Grossly non focal Medications Administered Generic Name Dose Route Start Last Admin Trade Name Freq PRN Reason Stop Dose Admin Heparin Sodium/Sodium Chloride 25,000 unit in 250 mls @ 0 mls/hr 09/12/23 14:15 09/12/23 14:34 Heparin Sodium,Porcine/1/2ns IVCONT 14 units/kg/hr .Q0M YIMI 18.21 mls/hr Administration Protocol Per Protocol Discontinued Medications Generic Name Dose Route Start Last Admin Trade Name Freq PRN Reason Stop Dose Admin Heparin Sodium (Porcine) 10,000 unit 09/12/23 13:43 09/12/23 14:35 Heparin Sodium,Porcine 5,000 Unit/Ml Vial IVPUSH 09/12/23 13:44 10,000 unit ONCE ONE Administration Iohexol 100 ml 09/12/23 14:52 09/12/23 14:52 Iohexol 350 Mg/Ml 100 Ml Infus..Btl IV 09/12/23 14:53 65 ml ONCE ONE Administration Medical Decision Making Medical Decision Making MDM Narrative: Differential diagnosis includes, but is not limited to DVT, pulmonary embolism Patient is afebrile and hemodynamically stable on room air. I reviewed and interpreted labs, which are notable for mildly elevated troponin of 67.4. BNP only 24. I reviewed and interpreted EKG, which is unremarkable for any acute findings. Specifically, no ischemic changes or signs of right ventricular strain. Discussed with Dr. Brown CT imaging findings of right pulmonary embolism. Of note, CT imaging does demonstrate left basilar airspace disease involving the lingula and lower lobe in the dependent portions. However, does not endorse any symptoms suggest infectious etiology such as with pneumonia. Specifically, patient states he has no fevers, chills, sputum production or hemoptysis. He is afebrile here and saturating well on room air. For this reason, we will not provide antibiotics at this time. Certainly, patient will need close inpatient level of monitoring for development of infectious symptoms and development of pneumonia. 09/12/23 1345 - I am notified by fingerprint technician at the bedside of positive right upper extremity DVT. Patient well-appearing in no distress, resting comfortably in hospital stretcher. I informed him and family present at the bedside plan to start heparin bolus/gtt. Awaiting CT imaging at this time for evaluation of pulmonary embolism. patient stable on room air. will add on troponin and BNP. ECG without signs of right ventricular strain. further, patient reports already having received his once daily intravenous antibiotic this morning. I have discussed the patient's case and management with admitting hospitalist Dr. Sneed. Patient is admitted to hospitalist service for further work up and management. Admission/Observation Consideration of admission/observation: Escalation of care including admission/observation considered Consult Healthcare Provider Management of the patient was discussed with: Hospitalist and Primary Care Provider (Radiologist) I have discussed case and management with admitting hospitalist Dr. Jesus Lab Data MDM Lab Attestation statement: I reviewed the patient's lab results. 09/12/23 13:59 09/12/23 13:22 Labs: Lab Results 09/12/23 09/12/23 Range/Units 13:22 13:59 WBC 7.4 7.4 (4.8-10.8) X10*3/uL RBC 4.95 5.09 (4.60-5.80) X10*6/uL Hgb 13.8 L 13.9 L (14.0-18.0) g/dl Hct 40.1 L 41.1 L (42.0-52.0) % MCV 81.0 80.7 (80.0-98.0) fL MCH 27.9 27.3 (27.0-33.0) pg MCHC 34.4 33.8 (31.0-36.0) g/dl RDW 13.1 13.2 (11.0-16.0) % Plt Count 180 D 172 (160-400) X10*3/uL MPV 11.1 10.9 (9.4-12.4) fL Immature Gran % (Auto) 0.3 (0.0-0.4) % Neut % (Auto) 65.1 (45-73) % Lymph % (Auto) 25.8 (20-40) % [place] % (Auto) 6.0 (2-11) % Eos % (Auto) 2.3 (0-4) % Baso % (Auto) 0.5 (0-2) % Lymph # (Auto) 1.9 (1.2-4.9) X10*3/uL [place] # (Auto) 0.4 (0.1-1.2) X10*3/uL Eos # (Auto) 0.2 (0.0-0.4) X10*3/uL Baso # (Auto) 0.0 (0.0-0.2) X10*3/uL Abs Immat Gran (auto) 0.02 (0.00-0.03) X10*3/uL Absolute Neuts (auto) 4.8 (2.0-8.3) x10*3/uL Absolute Nucleated RBC 0.000 0.000 (0.0-0.012) X10*3/uL Nucleated RBC % (auto) 0.0 0.0 (0.0-0.2) /100WBC PT 13.2 (11.1-13.3) SEC INR 1.1 (0.9-1.1) aPTT Heparin Protocol 31.5 L (53-77.9) SEC Sodium 140 (135-145) mmol/L Potassium 4.0 (3.3-5.1) mmol/L Chloride 108 (96-108) mmol/L Carbon Dioxide 24 (22-29) mmol/L Anion Gap 12 (12-20) BUN 17 H (9-16) mg/dL Creatinine 0.67 (0.5-1.4) mg/dL Estim Creat Clear Calc 161.9 Estimated GFR > 60 Random Glucose 153 H (60-115) mg/dL Calcium 8.9 (8.4-10.2) mg/dL Troponin I High Sens 67.4 H (<3.5-35.0) ng/L B-Natriuretic Peptide 24 (<100) pg/mL Independent Interpretation I performed an independent interpretation of an: EKG Interpretation: ECG shows normal sinus rhythm at 83bpm, pr 168, qts 100, qtc 451, no RV strain, no STEMI (compared to prior EKG 08/25/2023 there are no diagnostic ischemic changes) Radiology Impression Discussion of test interpretation with radiology: I discussed test interpretation with the radiologist and I have reviewed the radiologist's reading. Radiologist Impression: IMPRESSION: Right axillary vein DVT. Right upper extremity PICC line in the right brachial vein. Findings were communicated to Dr. Pugh by the communications technologist at the conclusion of the exam. Dictated By: Ellen Todd MD Signed By: <Electronically signed by Ellen Todd MD in OV> 09/12/23 14 IMPRESSION: Large right pulmonary embolism extending into all lobes on the right. Left basilar airspace disease involving the lingula and lower lobe in the dependent portions. Suspect ankylosing spondylitis. Asymmetry of the thyroid gland suggesting right thyroidectomy. Recommend clinical correlation. Dr. Pugh was directly informed of the presence of pulmonary embolism by telephone at 3:15 PM on September 12, 2023. Discharge Plan Discharge Clinical Impression: Acute dyspnea, Pulmonary embolism, Acute deep vein thrombosis (DVT) of right upper extremity, Elevated troponin, Elevated brain natriuretic peptide (BNP) level Patient Disposition: Admitted As Inpatient Print Language: British
--- NOTE | 2023-09-12 13:12 | ECG_ITS ---
Test Reason : DYSPNEA Blood Pressure : / mmHG Vent. Rate : 083 BPM Atrial Rate : 083 BPM P-R Int : 168 ms QRS Dur : 100 ms QT Int : 384 ms P-R-T Axes : 008 -10 044 degrees QTc Int : 451 ms Normal sinus rhythm Normal ECG When compared with ECG of 25-AUG-2023 14:15, No significant change was found Referred By: Vikas Pugh Electronically Signed By:Wicho Ruiz
[2023-09-12 13:25] LABS: MANUAL DIFF FLAG NO
[2023-09-12 13:32] LABS: Basophils Percent Auto 0.5 % (0-2); Eosinophils Absolute Auto 0.2 X10*3/uL (0.0-0.4); Eosinophils Percent Auto 2.3 % (0-4); Hematocrit 40.1 % (42.0-52.0); Hemoglobin 13.8 g/dl (14.0-18.0); Imm Gran Abs Auto 0.02 X10*3/uL (0.00-0.03); Imm Gran Pct Auto 0.3 % (0.0-0.4); Lymphocytes Absolute Auto 1.9 X10*3/uL (1.2-4.9); Lymphocytes Percent Auto 25.8 % (20-40); Mean Corpuscular HGB Conc 34.4 g/dl (31.0-36.0); Mean Corpuscular Hemoglobin 27.9 pg (27.0-33.0); Mean Platelet Volume 11.1 fL (9.4-12.4); Monocytes Absolute Auto 0.4 X10*3/uL (0.1-1.2); Neutrophils Absolute Auto 4.8 x10*3/uL (2.0-8.3); Neutrophils Percent Auto 65.1 % (45-73); Platelet Count 180 X10*3/uL (160-400); Red Blood Count 4.95 X10*6/uL (4.60-5.80); Red Cell Distribution Width 13.1 % (11.0-16.0); White Blood Count 7.4 X10*3/uL (4.8-10.8)
--- NOTE | 2023-09-12 13:35 | PC.NURSE ---
US at bedside at this time.
[2023-09-12 13:41] LABS: Anion Gap 12 (12-20); Blood Urea Nitrogen 17 mg/dL (9-16); Calcium 8.9 mg/dL (8.4-10.2); Carbon Dioxide 24 mmol/L (22-29); Chloride 108 mmol/L (96-108); Creatinine Clr Calc Pharmacy 161.9; Estimated Glomerular Filt Rate > 60; Glucose Random 153 mg/dL (60-115); Sodium 140 mmol/L (135-145)
[2023-09-12 14:07] LABS: Hematocrit 41.1 % (42.0-52.0); Hemoglobin 13.9 g/dl (14.0-18.0); Mean Corpuscular HGB Conc 33.8 g/dl (31.0-36.0); Mean Corpuscular Hemoglobin 27.3 pg (27.0-33.0); Mean Corpuscular Volume 80.7 fL (80.0-98.0); Mean Platelet Volume 10.9 fL (9.4-12.4); Platelet Count 172 X10*3/uL (160-400); Red Blood Count 5.09 X10*6/uL (4.60-5.80); Red Cell Distribution Width 13.2 % (11.0-16.0); White Blood Count 7.4 X10*3/uL (4.8-10.8)
[2023-09-12 14:11] LABS: INTERNATIONAL NORM RATIO 1.1 (0.9-1.1); Prothrombin Time 13.2 SEC (11.1-13.3)
[2023-09-12 14:14] LABS: PTT Heparin Drip 31.5 SEC (53-77.9)
[2023-09-12 14:15] LABS: Troponin-I High Sensitivity 67.4 ng/L (<3.5-35.0)
[2023-09-12 14:20] LABS: B Type Natriuretic Peptide 24 pg/mL (<100)
--- NOTE | 2023-09-12 14:22 | PC.NURSE ---
DONALDO PICC line dressing changed, was dirty with the edges not sealed.
[2023-09-12] MEDS: Heparin Sodium,Porcine/1/2NS 25,000 UNIT/250 ML IV.SOLN 18.21 UNIT IVCONT (14:34)
[2023-09-12] MEDS: Heparin Sodium,Porcine 5,000 UNIT/ML VIAL 10000 UNIT IVPUSH (14:35)
[2023-09-12] MEDS: iohexoL 350 MG/ML 100 ML INFUS..BTL IV (14:52)
--- NOTE | 2023-09-12 16:40 | PHA.MEDREC ---
Pharmacy Consult ? Medication Reconciliation Pharmacy has completed the medication reconciliation. Spoke to Pt at bedside, who was able to name all medications. Noted that he took Ceftriaxone, Celebrex, and Metformin today.
--- NOTE | 2023-09-12 16:50 | P.HPHOSP_ITS ---
History of Present Illness Date of Service: 09/12/23 Chief Complaint: SOB A 57 yeats old male with PMH of DM, Bacteremia on IVABx, HTN, HLD, ALPHONSE on CPAP, morbid obesity who presented to ED with increase SOB for the last 3 days. The patient was diagnosed with Grp B Strep bacteremia and placed on Ceftriaxone w PICC line in place earlier this month with a plan to finish Abx mid September. He noticed increase work of breathing and SOB with exertion over the last 2 days. this morning his visiting nurse noticed that his O2 level drops to early 80s upon ambulation. Denies any No chest pain, palpitations, nausea, vomiting, diarrhea or urinary symptoms. In ED found to have DVT of RUE at the site of PICC line. CTA showed large right sided PE. started on Heparin drip. Admitted for further evaluation and treatment. Review of Systems 2 Review of Systems: No fever, chills or weakness No chest pain, palpitation reporting shortness of breath but no coughing No abdominal pain, nausea or vomiting No urinary symptoms No any rash or wounds PMFSH Medical History Family history of cardiovascular disease Elevated ferritin HTN (hypertension) High triglycerides ALPHONSE (obstructive sleep apnea) Morbid obesity Nicotine dependence, cigarettes, uncomplicated Fatty liver History of colon polyps (~2018) Osteoarthritis of both knees History of Lyme disease Family History Father CVD (cardiovascular disease) History of heart attack, Onset Age: 50 Mother No problems noted. Brother No problems noted. Sister No problems noted. Sister No problems noted. Sister No problems noted. Paternal Uncle History of heart attack, Onset Age: 50 Surgical History History of colonoscopy History of mandibular surgery Social History Household Members: Spouse Housing: House Do you presently have visiting nurse or other home services: No Alcohol intake: current Alcohol intake frequency: 0-2 drinks per day Alcohol type: beer Patient Tobacco Use Status: Current everyday Tobacco user Tobacco use type: Cigarette Cigarettes Per Day: 2 Years Smoked: 40 e-Cigarette/Vaping Use: Former Use Second Hand Smoke Exposure: No Substance Use Type: Marijuana Advance Directives: No Advance Directives Information Provided: Yes service: No Current occupational status: employed 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 [employer] Cognitive needs: No Hearing needs: No Vision needs: No Meds Allergies Allergy/AdvReac Type Severity Reaction Status Date / Time SEASONAL ALLERGIES Allergy Intermediate Runny Nose Uncoded 09/12/23 13:04 Active Medications: Current Medications Heparin Sodium (Porcine) (Heparin Sodium,Porcine 5,000 Unit/Ml Vial) 5,200 unit 40 unit/kg (5200 unit) IVPUSH PROTOCOL BOLUS PRN; Protocol PRN Reason: 40 unit/kg - Heparin Protocol Heparin Sodium (Porcine) (Heparin Sodium,Porcine 5,000 Unit/Ml Vial) 10,000 unit IVPUSH PROTOCOL BOLUS PRN; Protocol PRN Reason: 80 unit/kg - Heparin Protocol Heparin Sodium/Sodium Chloride (Heparin Sodium,Porcine/1/2ns) 25,000 unit in 250 mls @ 0 mls/hr IVCONT .Q0M YIMI; Protocol Last Admin: 09/12/23 14:34 Dose: 14 units/kg/hr, 18.21 mls/hr Home Medications ?Medication ?Instructions ?Recorded ?Confirmed ?Last Taken ?Type diphenhydramine HCl 25 mg capsule 25 mg PO DAILY PRN Allergy Symptoms 08/27/23 09/12/23 09/11/23 History (Benadryl) lisinopril 40 mg tablet 20 mg PO BID 09/12/23 09/12/23 Unknown History Physical Exam 2 Vital Signs and Narrative: Vital Signs: Last Vital Signs Temp 98.1 F 09/12/23 13:00 Pulse 77 09/12/23 16:40 Resp 18 09/12/23 16:40 BP 151/96 H 09/12/23 16:40 Pulse Ox 94 09/12/23 16:40 O2 Del Method Room Air 09/12/23 16:40 BMI result Body Mass Index 42.4 Const: Other: Constitutional : Awake, interactive, not in distress Neck : Normal inspection, Supple Cardiovascular : RRR, no JVP, no lower extremity edema Respiratory : good bilateral air entry, no crackles, wheezes or rhonchi Gastrointestinal: soft, lax, Normal bowel sounds, Non tender Skin : Warm, Dry, RUE PICC line with no surrounding erythema or tenderness Neurological : Alert & oriented x3, No focal deficit Results Labs 09/12/23 13:59 09/12/23 13:22 Labs: Laboratory Results - last 24 hr 09/12/23 09/12/23 13:22 13:59 MCV 81.0 80.7 MCH 27.9 27.3 MCHC 34.4 33.8 RDW 13.1 13.2 Plt Count 180 D 172 MPV 11.1 10.9 Immature Gran % (Auto) 0.3 Neut % (Auto) 65.1 Lymph % (Auto) 25.8 [place] % (Auto) 6.0 Eos % (Auto) 2.3 Baso % (Auto) 0.5 Lymph # (Auto) 1.9 [place] # (Auto) 0.4 Eos # (Auto) 0.2 Baso # (Auto) 0.0 Abs Immat Gran (auto) 0.02 Absolute Neuts (auto) 4.8 Absolute Nucleated RBC 0.000 0.000 Nucleated RBC % (auto) 0.0 0.0 PT 13.2 INR 1.1 aPTT Heparin Protocol 31.5 L Anion Gap 12 Estim Creat Clear Calc 161.9 Estimated GFR > 60 Random Glucose 153 H Calcium 8.9 Troponin I High Sens 67.4 H B-Natriuretic Peptide 24 Imaging Radiologist's Impressions: Impressions Venous Duplex 09/12/23 13:44 IMPRESSION: Right axillary vein DVT. Right upper extremity PICC line in the right brachial vein. Findings were communicated to Dr. Pugh by the cath lab radiological technologist at the conclusion of the exam. Chest CTA 09/12/23 14:50 IMPRESSION: Large right pulmonary embolism extending into all lobes on the right. Left basilar airspace disease involving the lingula and lower lobe in the dependent portions. Suspect ankylosing spondylitis. Asymmetry of the thyroid gland suggesting right thyroidectomy. Recommend clinical correlation. Dr. Pugh was directly informed of the presence of pulmonary embolism by telephone at 3:15 PM on September 12, 2023. VTE: positive Assessment and Plan (1) Elevated troponin: Status: Acute (2) Acute deep vein thrombosis (DVT) of right upper extremity: Status: Acute (3) Pulmonary embolism: Status: Acute (4) Acute dyspnea: Status: Acute Plan A 57 yeats old male with PMH of DM, Bacteremia on IVABx, HTN, HLD, ALPHONSE on CPAP, morbid obesity who presented to ED with increase SOB for the last 3 days. Acute PE CTA showing large right sided Pul embolism DVT in RUE Keep PICC in place start Heparin drip monitor overnight keep on Tele Elevated Trop No chest pain or EKG changes to suggest ACS keep on tele repeat Trop Grp B strep Bacteremia on IV Ceftriaxone 2 gm daily Diabetes type 2 Insulin sliding scale Hold Metformin Hypertension Lisinopril ALPHONSE CPAP at night Morbid obesity Weight loss recommended DVT ppx Heparin drip Full Code The patient will likely need 2 overnight hospital stay for treatment of acute large PE on heparin drip and need of IV antibiotics pending clinical improvement and following Troponin Quality Stroke Does the patient have a stroke diagnosis?: No VTE Prior VTE?: No VTE Risk Level:: Medical - moderate - high VTE Device Contraindication: Treatment Not Indicated VTE Drug Contraindication: N/A - Med Ordered
--- NOTE | 2023-09-12 19:19 | PC.NURSE ---
Assumed care of pt at 1900. PT a/o, vss, continuous cardiac monitoring in place NSR 84bpm, heparin drip running at 14u/kg. New ptt-hd draw due 2044
[2023-09-12 19:50] LABS: Troponin-I High Sensitivity 60.2 ng/L (<3.5-35.0)
[2023-09-12 21:16] LABS: Glucose, Whole Blood 132 mg/dL (60-115)
[2023-09-12] MEDS: lisinopriL 20 MG TABLET PO (21:20)
[2023-09-12] MEDS: Atorvastatin Calcium 20 MG TABLET PO (21:21)
[2023-09-12 21:27] LABS: PTT Heparin Drip 87.1 SEC (53-77.9)
--- NOTE | 2023-09-12 21:45 | PC.NURSE ---
PT taken down to 470 by special procedure technologist. After transport T?W rec'd call from pharmacy noting that ptt-hd came back at 87.1, so heparin drip would need to be decreased by 2 units and no bolus.
[2023-09-12] MEDS: Celecoxib 200 MG CAPSULE PO (22:56)
[2023-09-13] VITALS (7 sets, daily range): BP systolic 108–164; BP diastolic 65–94; PULSE 68–84; RESP 17–20; TEMP 36.1–36.6; O2SAT 92–96
[2023-09-13] MEDS: 0.9 % Sodium Chloride Flush 3 ML SYRINGE IVFLUSH ×3 (00:10→15:55)
[2023-09-13 04:20] LABS: PTT Heparin Drip 78.5 SEC (53-77.9)
[2023-09-13] MEDS: Heparin Sodium,Porcine/1/2NS 25,000 UNIT/250 ML IV.SOLN 13.01 UNIT IVCONT (04:34)
--- NOTE | 2023-09-13 05:25 | PC.NURSE ---
Patient admitted to s4 from ED via stretcher at ~21:20. Patient described he had been feeling sob and having a hard time breathing at home with spo2 found to be in low 80's by his visiting nurse that comes to help administer antibiotics via his (single lumen RUE) PICC line. Imaging in ED was notable for DVT in RUE axillary vein and large RT PE. Patient arrived to the unit on a heparin gtt infusing at 14units/kg/hr. At 21:49, ED RN notified ad writer of high PTT as per lab notification; PTT reviewed and gtt was adjusted per policy. Ultrasound report reviewed by ad writer stating PICC noted in RUE brachial vein. Covering Dr. [place] was notified of ultrasound findings and ad writer asked for clarification on PICC line use. Money Order Clerk initially received MD written okay via [email or web address] to use the PICC, though the patient shortly after began to c/o new pain/tingling in RUE that he indicated at site of/surrounding PICC. MD was notified with NNO. RUE was elevated on pillows. +Radial and dp pulses, +cms, +strong and equal grasp on assessment. Nursing cooler supervisor was notified. Peripheral IV x2 immediately placed in left arm and heparin gtt was switched to one of the new left arm peripheral IVs. PICC line was capped and marked with a Do not use sticker pending attending further clarification during the day, as per verbal orders from nursing cooler supervisor. Patient reports pain in RUE has resolved with above interventions.
[2023-09-13 07:46] LABS: Glucose, Whole Blood 101 mg/dL (60-115)
[2023-09-13 07:56] LABS: Hematocrit 40.1 % (42.0-52.0); Hemoglobin 13.9 g/dl (14.0-18.0); Mean Corpuscular HGB Conc 34.7 g/dl (31.0-36.0); Mean Corpuscular Volume 80.7 fL (80.0-98.0); Mean Platelet Volume 12.8 fL (9.4-12.4); Platelet Count 142 X10*3/uL (160-400); Red Blood Count 4.97 X10*6/uL (4.60-5.80); Red Cell Distribution Width 13.3 % (11.0-16.0); White Blood Count 5.3 X10*3/uL (4.8-10.8)
[2023-09-13 07:58] LABS: INTERNATIONAL NORM RATIO 1.1 (0.9-1.1); Prothrombin Time 12.9 SEC (11.1-13.3)
--- NOTE | 2023-09-13 08:10 | MHC.CM.PN ---
Patient was dc'd from [facility] [place] on 09/01/2023 with [facility] for IV ABT @ home; home/resume said services is the goal and CM has initiated and will follow for dc planning.Patient is functionally independent, lives with his /HCP/Cynthia and he uses CPAP @ home. PCP is Dr. Shine Elizabeth.
[2023-09-13 08:14] LABS: Anion Gap 14 (12-20); Blood Urea Nitrogen 16 mg/dL (9-16); Calcium 9.1 mg/dL (8.4-10.2); Carbon Dioxide 22 mmol/L (22-29); Chloride 106 mmol/L (96-108); Creatinine Clr Calc Pharmacy 149.6; Estimated Glomerular Filt Rate > 60; Glucose Random 102 mg/dL (60-115); Potassium 4.5 mmol/L (3.3-5.1); Sodium 137 mmol/L (135-145)
--- NOTE | 2023-09-13 10:28 | HO.PM.IMPN ---
Subjective Subjective Date of Service: 09/13/23 Interval History: seen and evaluated O2 dropped to 86% with ambulation Mild pain RUE Review of Systems Review of Systems: Yes all other systems are reviewed and are negative Physical Exam Vital Signs: Vital Signs: Last Vital Signs Temp 97.0 F 09/13/23 07:55 Pulse 69 09/13/23 07:55 Resp 17 09/13/23 07:55 BP 140/94 H 09/13/23 10:27 Pulse Ox 94 09/13/23 07:55 O2 Del Method Room Air 09/13/23 07:55 BMI result Body Mass Index 42.5 Const: Other: Constitutional : Awake, interactive, not in distress Neck : Normal inspection, Supple Cardiovascular : RRR, no JVP, no lower extremity edema Respiratory : good bilateral air entry, no crackles, wheezes or rhonchi Gastrointestinal: soft, lax, Normal bowel sounds, Non tender Skin : Warm, Dry, RUE PICC line with small surrounding rash , no tenderness Neurological : Alert & oriented x3, No focal deficit Objective Data Active Medications Acetaminophen (Acetaminophen 325 Mg Tablet) 650 mg PO Q6H PRN PRN Reason: Pain, Mild (Pain Scale 1-3), fever or headache Atorvastatin Calcium (Atorvastatin Calcium 20 Mg Tablet) 20 mg PO BEDTIME [facility] Last Admin: 09/12/23 21:21 Dose: 20 mg Documented By: MICHELINE Calcium Carbonate (Calcium Carbonate 750 Mg Tab.Chew) 750 mg PO Q4H PRN PRN Reason: Heartburn Ceftriaxone Sodium (Ceftriaxone Sodium 2 Gm Vial) 2 gm IV Q24H [facility] Celecoxib (Celecoxib 200 Mg Capsule) 200 mg PO BID [facility] Last Admin: 09/12/23 22:56 Dose: 200 mg Documented By: JOELLE Diphenhydramine HCl (Diphenhydramine Hcl 25 Mg Capsule) 25 mg PO DAILY PRN PRN Reason: Allergy Symptoms Heparin Sodium (Porcine) (Heparin Sodium,Porcine 5,000 Unit/Ml Vial) 5,200 unit 40 unit/kg (5200 unit) IVPUSH PROTOCOL BOLUS PRN; Protocol PRN Reason: 40 unit/kg - Heparin Protocol Heparin Sodium (Porcine) (Heparin Sodium,Porcine 5,000 Unit/Ml Vial) 10,000 unit IVPUSH PROTOCOL BOLUS PRN; Protocol PRN Reason: 80 unit/kg - Heparin Protocol Heparin Sodium/Sodium Chloride (Heparin Sodium,Porcine/1/2ns) 25,000 unit in 250 mls @ 0 mls/hr IVCONT .Q0M [facility]; Protocol Last Admin: 09/13/23 04:34 Dose: 10 units/kg/hr, 13.01 mls/hr Documented By: JOELLE Co-signed By: AGUILA Insulin Human Lispro (Insulin Lispro 100 Unit/Ml 3 Ml Vial) 0 unit SUBCUT QIDACHS [facility]; Protocol Last Admin: 09/13/23 07:56 Dose: Not Given Documented By: ADOLFO Non-Admin Reason: No Insulin Coverage Lisinopril (Lisinopril 20 Mg Tablet) 20 mg PO BID [facility]; Protocol Last Admin: 09/12/23 21:20 Dose: 20 mg Documented By: MICHELINE Magnesium Hydroxide (Milk Of Magnesia 30 Ml Oral.Susp) 30 ml PO DAILY PRN PRN Reason: Constipation Melatonin (Melatonin 3 Mg Tablet) 6 mg PO BEDTIME PRN PRN Reason: Insomnia Ondansetron HCl (Ondansetron Hcl 4 Mg/2 Ml Vial) 4 mg IVPUSH Q8H PRN PRN Reason: Nausea and Vomiting Sodium Chloride (0.9 % Sodium Chloride Flush 3 Ml Syringe) 3 ml IVFLUSH QSHIFT [facility] Last Admin: 09/13/23 00:10 Dose: 3 ml Documented By: JOELLE Labs 09/13/23 07:28 09/13/23 07:28 Labs: Laboratory Results - last 24 hr 09/12/23 09/12/23 09/12/23 13:22 13:59 19:22 MCV 81.0 80.7 MCH 27.9 27.3 MCHC 34.4 33.8 RDW 13.1 13.2 Plt Count 180 D 172 MPV 11.1 10.9 Immature Gran % (Auto) 0.3 Neut % (Auto) 65.1 Lymph % (Auto) 25.8 Cocke % (Auto) 6.0 Eos % (Auto) 2.3 Baso % (Auto) 0.5 Lymph # (Auto) 1.9 Cocke # (Auto) 0.4 Eos # (Auto) 0.2 Baso # (Auto) 0.0 Abs Immat Gran (auto) 0.02 Absolute Neuts (auto) 4.8 Absolute Nucleated RBC 0.000 0.000 Nucleated RBC % (auto) 0.0 0.0 PT 13.2 INR 1.1 aPTT Heparin Protocol 31.5 L Anion Gap 12 Estim Creat Clear Calc 161.9 Estimated GFR > 60 POC Glucose Random Glucose 153 H Calcium 8.9 Troponin I High Sens 67.4 H 60.2 H B-Natriuretic Peptide 09/12/23 09/12/23 09/13/23 20:41 21:11 04:05 MCV MCH MCHC RDW Plt Count MPV Immature Gran % (Auto) Neut % (Auto) Lymph % (Auto) Cocke % (Auto) Eos % (Auto) Baso % (Auto) Lymph # (Auto) Cocke # (Auto) Eos # (Auto) Baso # (Auto) Abs Immat Gran (auto) Absolute Neuts (auto) Absolute Nucleated RBC Nucleated RBC % (auto) PT INR aPTT Heparin Protocol 87.1 H D 78.5 H Anion Gap Estim Creat Clear Calc Estimated GFR POC Glucose 132 H Random Glucose Calcium Troponin I High Sens B-Natriuretic Peptide 09/13/23 09/13/23 07:28 07:42 MCV 80.7 MCH 28.0 MCHC 34.7 RDW 13.3 Plt Count 142 L MPV 12.8 H Immature Gran % (Auto) Neut % (Auto) Lymph % (Auto) Cocke % (Auto) Eos % (Auto) Baso % (Auto) Lymph # (Auto) Cocke # (Auto) Eos # (Auto) Baso # (Auto) Abs Immat Gran (auto) Absolute Neuts (auto) Absolute Nucleated RBC 0.000 Nucleated RBC % (auto) 0.0 PT 12.9 INR 1.1 aPTT Heparin Protocol Anion Gap 14 Estim Creat Clear Calc 149.6 Estimated GFR > 60 POC Glucose 101 Random Glucose 102 Calcium 9.1 Troponin I High Sens B-Natriuretic Peptide Assessment and Plan (1) Elevated troponin: Status: Acute (2) Acute deep vein thrombosis (DVT) of right upper extremity: Status: Acute (3) Pulmonary embolism: Status: Acute (4) Hypoxia: Status: Acute Plan A 57 yeats old male with PMH of DM, Bacteremia on IVABx, HTN, HLD, ALPHONSE on CPAP, morbid obesity who presented to ED with increase SOB for the last 3 days. acute Hypoxia 2/2 Acute PE O2 dropped to 86% on ambulation on RA CTA showing large right sided Pul embolism with Doppler showing DVT in RUE Keep PICC in place Continue Heparin drip for 24 hours then changes to Eliquis monitor overnight keep on Tele Elevated Trop No chest pain or EKG changes to suggest ACS Trended down keep on tele Grp B strep Bacteremia on IV Ceftriaxone 2 gm daily Diabetes type 2 Insulin sliding scale Hold Metformin Hypertension Lisinopril ALPHONSE CPAP at night Morbid obesity Weight loss recommended DVT ppx Heparin drip Full Code The patient will likely need overnight hospital stay for treatment of acute large PE on heparin drip and need of IV antibiotics pending clinical improvement and following Troponin Quality Stroke Does the patient have a stroke diagnosis?: No VTE Prior VTE?: No VTE Risk Level:: Medical - moderate - high VTE Device Contraindication: Treatment Not Indicated VTE Drug Contraindication: N/A - Med Ordered
[2023-09-13] MEDS: cefTRIAXone sodium 2 GM VIAL IV (10:29)
[2023-09-13] MEDS: lisinopriL 20 MG TABLET PO ×2 (10:30→22:04)
[2023-09-13] MEDS: Celecoxib 200 MG CAPSULE PO ×2 (10:30→22:04)
[2023-09-13 10:44] LABS: PTT Heparin Drip 42.2 SEC (53-77.9)
[2023-09-13] MEDS: Heparin Sodium,Porcine 5,000 UNIT/ML VIAL 5200 UNIT IVPUSH (10:59)
[2023-09-13] MEDS: Omeprazole 20 MG CAPSULE.DR PO (10:59)
[2023-09-13 11:17] LABS: Glucose, Whole Blood 117 mg/dL (60-115)
[2023-09-13] MEDS: diphenhydrAMINE HCL 25 MG CAPSULE PO (11:48)
[2023-09-13] MEDS: Heparin Sodium,Porcine/1/2NS 25,000 UNIT/250 ML IV.SOLN 15.61 UNIT IVCONT (14:55)
[2023-09-13 16:07] LABS: Glucose, Whole Blood 122 mg/dL (60-115)
[2023-09-13 17:33] LABS: PTT Heparin Drip 54.5 SEC (53-77.9)
[2023-09-13 21:10] LABS: Glucose, Whole Blood 119 mg/dL (60-115)
[2023-09-13] MEDS: Apixaban 5 MG TABLET 10 MG PO (22:03)
[2023-09-13] MEDS: Atorvastatin Calcium 20 MG TABLET PO (22:04)
[2023-09-13] MEDS: Melatonin 3 MG TABLET 6 MG PO (22:04)
[2023-09-13 23:20] LABS: PTT Heparin Drip 31.9 SEC (53-77.9)
[2023-09-14] VITALS (11 sets, daily range): BP systolic 108–162; BP diastolic 66–86; PULSE 56–101; RESP 16–20; TEMP 36.1–36.9; O2SAT 85–98
[2023-09-14] MEDS: Omeprazole 20 MG CAPSULE.DR PO (06:41)
[2023-09-14 07:57] LABS: Glucose, Whole Blood 104 mg/dL (60-115)
[2023-09-14] MEDS: Apixaban 5 MG TABLET 10 MG PO ×2 (08:56→22:23)
[2023-09-14] MEDS: 0.9 % Sodium Chloride Flush 3 ML SYRINGE IVFLUSH ×3 (08:57→22:26)
[2023-09-14] MEDS: Celecoxib 200 MG CAPSULE PO ×2 (08:57→22:24)
[2023-09-14] MEDS: lisinopriL 20 MG TABLET PO ×2 (08:57→22:24)
--- NOTE | 2023-09-14 08:58 | PC.NURSE ---
Per MD at bedside, yudy to use PICC line for IV abx to ensure patency before plans for DC.
[2023-09-14] MEDS: cefTRIAXone sodium 2 GM VIAL IV (09:14)
[2023-09-14 11:17] LABS: Glucose, Whole Blood 109 mg/dL (60-115)
--- NOTE | 2023-09-14 11:18 | P.PNIM_ITS ---
Subjective Subjective Date of Service: 09/14/23 Interval History: seen and evaluated O2 dropped to 86% with ambulation this morning reports mild dyspnea but overall better resolved pain in RUE, tolerating IV Abx through it Review of Systems Review of Systems: Yes all other systems are reviewed and are negative Physical Exam 2 Vital Signs: Vital Signs: Last Vital Signs Temp 97.8 F 09/14/23 08:00 Pulse 101 H 09/14/23 09:16 Resp 18 09/14/23 08:00 BP 145/79 H 09/14/23 08:57 Pulse Ox 91 L 09/14/23 09:17 O2 Del Method Room Air 09/14/23 09:17 BMI result Body Mass Index 42.5 Const: Other: Constitutional : Awake, interactive, not in distress Neck : Normal inspection, Supple Cardiovascular : RRR, no JVP, no lower extremity edema Respiratory : good bilateral air entry, no crackles, wheezes or rhonchi Gastrointestinal: soft, lax, Normal bowel sounds, Non tender Skin : Warm, Dry, RUE PICC line with small surrounding rash , no tenderness Neurological : Alert & oriented x3, No focal deficit Objective Data Active Medications Acetaminophen (Acetaminophen 325 Mg Tablet) 650 mg PO Q6H PRN PRN Reason: Pain, Mild (Pain Scale 1-3), fever or headache Apixaban (Apixaban 5 Mg Tablet) 10 mg PO BID [facility] Stop: 09/20/23 09:01 Last Admin: 09/14/23 08:56 Dose: 10 mg Documented By: JV Atorvastatin Calcium (Atorvastatin Calcium 20 Mg Tablet) 20 mg PO BEDTIME [facility] Last Admin: 09/13/23 22:04 Dose: 20 mg Documented By: CHARLY Calcium Carbonate (Calcium Carbonate 750 Mg Tab.Chew) 750 mg PO Q4H PRN PRN Reason: Heartburn Celecoxib (Celecoxib 200 Mg Capsule) 200 mg PO BID [facility] Last Admin: 09/14/23 08:57 Dose: 200 mg Documented By: JV Diphenhydramine HCl (Diphenhydramine Hcl 25 Mg Capsule) 25 mg PO Q6H PRN PRN Reason: Allergy Symptoms Last Admin: 09/13/23 11:48 Dose: 25 mg Documented By: ADOLFO Ceftriaxone Sodium 2 gm/ (Sodium Chloride) 50 mls @ 100 mls/hr IV Q24H [facility] Insulin Human Lispro (Insulin Lispro 100 Unit/Ml 3 Ml Vial) 0 unit SUBCUT QIDACHS [facility]; Protocol Last Admin: 09/14/23 08:04 Dose: Not Given Documented By: JV Non-Admin Reason: No Insulin Coverage Lisinopril (Lisinopril 20 Mg Tablet) 20 mg PO BID [facility]; Protocol Last Admin: 09/14/23 08:57 Dose: 20 mg Documented By: JV Magnesium Hydroxide (Milk Of Magnesia 30 Ml Oral.Susp) 30 ml PO DAILY PRN PRN Reason: Constipation Melatonin (Melatonin 3 Mg Tablet) 6 mg PO BEDTIME PRN PRN Reason: Insomnia Last Admin: 09/13/23 22:04 Dose: 6 mg Documented By: CHARLY Omeprazole (Omeprazole 20 Mg Capsule.Dr) 20 mg PO DAILY@0630 [facility] Last Admin: 09/14/23 06:41 Dose: 20 mg Documented By: CHARLY Ondansetron HCl (Ondansetron Hcl 4 Mg/2 Ml Vial) 4 mg IVPUSH Q8H PRN PRN Reason: Nausea and Vomiting Sodium Chloride (0.9 % Sodium Chloride Flush 3 Ml Syringe) 3 ml IVFLUSH QSHIFT [facility] Last Admin: 09/14/23 08:57 Dose: 3 ml Documented By: JV Labs 09/13/23 07:28 09/13/23 07:28 Labs: Laboratory Results - last 24 hr 09/13/23 09/13/23 09/13/23 15:59 17:05 20:56 aPTT Heparin Protocol 54.5 D POC Glucose 122 H 119 H 09/13/23 09/14/23 09/14/23 23:06 07:45 11:01 aPTT Heparin Protocol 31.9 L D POC Glucose 104 109 Assessment and Plan (1) Hypoxia: Status: Acute (2) Acute deep vein thrombosis (DVT) of right upper extremity: Status: Acute (3) Pulmonary embolism: Status: Acute Plan A 57 yeats old male with PMH of DM, Bacteremia on IVABx, HTN, HLD, ALPHONSE on CPAP, morbid obesity who presented to ED with increase SOB for the last 3 days. acute Hypoxia 2/2 Acute PE CTA showed large right sided Pul embolism with Doppler showing DVT in RUE O2 dropped to 86% on ambulation on RA again today, O2 91-94% at rest looking at prev admissions his O2 readings were low-mid 90s at rest so likely he drops with ambulation but never tested Keep PICC in place dcd Heparin drip for 24 hours and changed to Eliquis 10 mg bid The patiient doesnt feel safe or comfortable going home while O2 continues to drop, he doesnt want home O2. We agreed to monitor overnight and recheck Home O2 need tomorrow and he will agree to take it home if continues to drop keep on Tele Elevated Trop No chest pain or EKG changes to suggest ACS Trended down keep on tele Grp B strep Bacteremia on IV Ceftriaxone 2 gm daily , PICC line in place functioning well. no more numbness or pain Diabetes type 2 Insulin sliding scale Hold Metformin Hypertension Lisinopril ALPHONSE CPAP at night Morbid obesity Weight loss recommended DVT ppx Eliquis Full Code The patient will likely need overnight hospital stay for treatment of acute large PE on blood thinners and need of IV antibiotics and hypoxia Quality Stroke Does the patient have a stroke diagnosis?: No VTE Prior VTE?: No VTE Risk Level:: Medical - moderate - high VTE Device Contraindication: Treatment Not Indicated VTE Drug Contraindication: N/A - Med Ordered
--- NOTE | 2023-09-14 12:03 | PC.RT ---
attempted home oxygen eval as per MD order. Patient did not want to participate as he was apprehensive about diagnosis of PE's and discharge. Patient requested to speak with MD regarding plan of care. Discussed with MD regarding patient request to speak with provider. MD stated there is no reagan for discharge and will speak to patient.
[2023-09-14] MEDS: diphenhydrAMINE HCL 25 MG CAPSULE PO (13:46)
[2023-09-14 15:59] LABS: Glucose, Whole Blood 98 mg/dL (60-115)
[2023-09-14 20:37] LABS: Glucose, Whole Blood 124 mg/dL (60-115)
[2023-09-14] MEDS: Atorvastatin Calcium 20 MG TABLET PO (22:24)
[2023-09-14] MEDS: Melatonin 3 MG TABLET 6 MG PO (22:26)
[2023-09-15] VITALS: BP 150/77; PULSE 58; RESP 20; TEMP 36.1; O2SAT 96
[2023-09-15 04:00] VITALS: BP 125/68; PULSE 54; RESP 20; TEMP 36.3; O2SAT 96
[2023-09-15] MEDS: Omeprazole 20 MG CAPSULE.DR PO (05:37)
[2023-09-15 07:05] LABS: Glucose, Whole Blood 108 mg/dL (60-115)
[2023-09-15 07:48] VITALS: BP 156/76; PULSE 65; RESP 18; TEMP 36; O2SAT 94
[2023-09-15] MEDS: 0.9 % Sodium Chloride Flush 3 ML SYRINGE IVFLUSH (08:24)
[2023-09-15 08:25] VITALS: BP 156/76
[2023-09-15] MEDS: lisinopriL 20 MG TABLET PO (08:25)
[2023-09-15] MEDS: cefTRIAXone sodium 2 GM in 0.9 % Sodium Chloride 50 ML IV (08:25)
[2023-09-15] MEDS: diphenhydrAMINE HCL 25 MG CAPSULE PO (08:25)
[2023-09-15] MEDS: Celecoxib 200 MG CAPSULE PO (08:25)
[2023-09-15] MEDS: Apixaban 5 MG TABLET 10 MG PO (08:25)
--- NOTE | 2023-09-15 10:26 | HO.WOUND ---
Wound Consult: Initial 57yr old? Male admitted to [facility] [place] on 09/12/23 - See progress notes and H&P for detailed history.? Wound consult placed for right Great Toe Wound.? Patient agreeable to assessment and photo documentation.?Patient reports he did have follow up with out pt wound clinic set for today but had to be cancelled due to this admission - he reports he will set new appointment for follow up once d/c is set. He reports he did not make the podiatry appointment since he was under the impression wound clinic wound be able to provide nail trimming. He was educated to make Podiatry appointment for nail trimming and follow up - he reports understanding. Right Great Toe - last admission Etiology: ??Diabetic Wound Measurements: 0.2cm x 0.1cm x 0.1cm Wound Bed: pink moist Drainage / Odor: scant serous Edges: ? callused Yee wound: Dry callused and intact ? No Induration, Fluctuance or Warmth noted Pain: No tenderness reported Goals of Treatment: ? 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 He reports the dressing was covering areas with rash prior to admission and this dressing change. Both arms chest, trunk and back were assessed for similar rash and not noted to be present aside from the left AC- the left AC is consistent with Adhesive reaction / dermatitis as seen in photo it is in location of tape. The patient reports itching from under the pic site which may indicate fungal dermatitis but can also be present for adhesive reactions. Provider will assess - there is limited treatment given it is under the PICC line dressing. If concern for fungal may treat with nystatin powder and covered with skin prep to create a seal prior to dressing application and if adhesive is suspected may use IV 3000 - it is a hypoallergenic dressing for central / PICC line dressings. Of importance this dressing is not available inpatient and would need a providers script to get from DME store. TT to provider with above info. Recommendations: 1. Right Great Toe - Cleanse with soap and water, pat dry. Pain with Betadine allow to dry, cover with dry gauze. Change Daily. Recommend follow up out patient Wound Clinic at [address] [place] [id number] and to call for an appointment at time of discharge. [phone].? Recommend follow up with Station Engineer of your choosing for nail trimming and callus removal. Re-consult wound care Nurse for wound deterioration or wound changes.
[2023-09-15 10:42] VITALS: PULSE 88; PULSE 92; O2SAT 96; O2SAT 97
--- NOTE | 2023-09-15 10:43 | PM.DS ---
DS: Providers Provider Date of Service: 09/15/23 Date of admission: 09/12/23 16:44 Primary care physician: RANDALL Mahmood- Consults: 09/12/23 22:49 Consult to Wound Care Routine Reason for consultation: R great toe diabetic wond, rash under picc dressing DS: Diagnosis Discharge Diagnosis (1) Hypoxia: Status: Acute (2) Acute deep vein thrombosis (DVT) of right upper extremity: Status: Acute (3) Pulmonary embolism: Status: Acute DS: Summary Hospital Course Hospital Course: admission hpi Chief Complaint: SOB A 57 yeats old male with PMH of DM, Bacteremia on IVABx, HTN, HLD, ALPHONSE on CPAP, morbid obesity who presented to ED with increase SOB for the last 3 days. The patient was diagnosed with Grp B Strep bacteremia and placed on Ceftriaxone w PICC line in place earlier this month with a plan to finish Abx mid September. He noticed increase work of breathing and SOB with exertion over the last 2 days. this morning his visiting nurse noticed that his O2 level drops to early 80s upon ambulation. Denies any No chest pain, palpitations, nausea, vomiting, diarrhea or urinary symptoms. In ED found to have DVT of RUE at the site of PICC line. CTA showed large right sided PE. started on Heparin drip. Admitted for further evaluation and treatment. hospital course: Patient had a PICC for treatment of Group B strep bacteremia and presented with shortness of breath and work up revealed right upper extremitiy DVT associated with PICC line and a large pulmonry embolims on the right side associated with acute hypoxic resprary failure. He was initiated on IV heparin which has been transition to oral Eliquis at 10 mg bid x 7 days, then transition to 5 mg twice daily. Catheter is been left in place per guideline: For patients who have an ongoing need for the catheter, it is reasonable to administer anticoagulant therapy without catheter removal, provided the device remains functional and its tip is well positioned (see 'Catheter management' below) [7,97]. This approach has been associated with good clinical outcomes in small series of patients, including patients with malignancy [[id number]]. The optimal duration of anticoagulation when the catheter stays in place has not been defined. The ACCP guidelines recommend continuing anticoagulation provided the central venous catheter remains in place, especially in patients with malignancy. If the catheter needs to be removed, no data are available to indicate whether central venous catheter removal should be preceded by a brief period of anticoagulation to minimize risk of embolization-- UptoDate Time Attestation Discharge Coordination Time (in mins): 40 Quality: Safe Use of Opioids Does Pt have an Active Cancer Diagnosis on the Problem List?: No Quality: Stroke Does the patient have a stroke diagnosis?: No Physical Exam Vital Signs: Vital Signs: Last Vital Signs Temp 96.8 F 09/15/23 07:48 Pulse 65 09/15/23 07:48 Resp 18 09/15/23 07:48 BP 156/76 H 09/15/23 08:25 Pulse Ox 94 09/15/23 07:48 O2 Del Method Room Air 09/15/23 07:48 BMI result Body Mass Index 42.5 DS: Data Data Completed and Pending Completed studies during hospitalization [Text1]: Procedures Insertion of Infusion Device into Superior Vena Cava, Percutaneous Approach (08/27/23) Ultrasonography of Superior Vena Cava, Guidance (08/27/23) Labs on day of discharge: Laboratory Results - last 24 hr 09/14/23 09/14/23 09/14/23 11:01 15:53 20:20 POC Glucose 109 98 124 H 09/15/23 06:52 POC Glucose 108 Discharge Plan Discharge Anticipated Discharge Date/Time: 09/15/23 10:44 Patient Disposition: Home Health Service Discharge Diagnosis: Pulmonary embolism Referrals: [facility] [Other] - 1 Week [facility] [Outside] - 1 Week Shine Elizabeth FNP- [Primary Care Provider] - 1 Week Discharge Medications: New (DME) transparent dressings [[id number] Frame Delivery Dressing] 2 3/8 X 2 3/4 bandage See Rx Instructions .Route Qty: 12 0RF Rx Instructions: As directed apixaban 5 mg (74 tabs) tablets,dose pack See Rx Instructions .ROUTE .COMPLEX Qty: 74 2RF Rx Instructions: Take 1 tab twice daily for 6 days (12 doses), then after that take 1 tab twice daily thereafter Continued (DME) blood-glucose meter [FreeStyle Lite Meter] Kit See Rx Instructions .Route Qty: 1 0RF Rx Instructions: Use to check fasting blood sugar and a random blood sugar twice daily (DME) FreeStyle Lite Strips Strip See Rx Instructions .Route Qty: 100 3RF Rx Instructions: Use to check fasting blood sugar and a random blood sugar twice daily (DME) lancets [FreeStyle Lancets] 28 gauge misc See Rx Instructions .Route Qty: 100 3RF Rx Instructions: Use to check fasting blood sugar and a random blood sugar twice daily atorvastatin 20 mg tablet 20 mg PO BEDTIME Qty: 90 1RF celecoxib 200 mg capsule 200 mg PO BID 30 Days Qty: 60 3RF diphenhydramine HCl [Benadryl] 25 mg Capsule 25 mg PO DAILY PRN (Reason: Allergy Symptoms) ceftriaxone 2 gram Recon Soln 2 g IV Q24H Qty: 0 0RF metformin 500 mg tablet 500 mg PO BIDWMEAL Qty: 180 0RF lisinopril 40 mg tablet 20 mg PO BID sildenafil 50 mg tablet 50 mg PO DAILY PRN (Reason: sexual activity) Qty: 14 0RF Rx Instructions: administer 30 minutes to 4 hours before activity Discharge Orders: Discharge Order (Routine); Ordered 09/15/23 Ordered By: Ventura Doe Diet: Advance to usual diet Activity on Discharge: As tolerated Stand Alone Forms: Patient Portal Discharge page Print Language: Albanian Activity Restrictions/Additional Instructions: Topical Wound Care Recommendations: Right Great Toe - Cleanse with soap and water, pat dry. Pain with Betadine allow to dry, cover with dry gauze. Change Daily. Recommend follow up out patient Wound Clinic at [address] [place] [id number] and to call for an appointment at time of discharge. [phone].? Recommend follow up with Still [facility] of your choosing for nail trimming and callus removal. Care Plan Goals: recovery from pulmonary embolism and its symptoms Health Concerns: pulmonary embolism bacteremia Plan of Treatment: take Eliquis as recommended for treatement of DVT and Pulmonary embolism Continue Ceftriaxone as before, ending 2023 Assessment: see above
[2023-09-15 10:57] LABS: Glucose, Whole Blood 124 mg/dL (60-115)
--- NOTE | 2023-09-15 10:58 | MHC.CM.PN ---
Pt is medically cleared for discharge home with resumption of [facility] and [facility] for IV antibiotics. Pts will transport him home.
[2023-09-15 11:18] VITALS: BP 152/75; PULSE 66; RESP 20; TEMP 36.6; O2SAT 95
--- NOTE | 2023-09-15 13:21 | W.MHC.F2F ---
Service Date Service Date: 09/15/23 Encounter Date of encounter: 09/15/23 Reasons for Services Signs and symptoms assessed: pulmonary embolis with shortness of breath, bacteremia on iv antibioticvs Reason for detention: central line care and medication management Homebound: Leaving the home is medically contraindicated at this time without the asist of a device and/or another person due th the listed conditions above and below. Reason homebound: shortness of breath with minimal effort and shortness of breath at rest Homebound supporting statement: homebound due to shortness of breath from pulmonary embolism Certification: Based on the above findings, I certify that this patient is confined to the home and needs intermittent detention care, physical therapy and/or speech therapy, or continues to need occupational therapy. The patient is under my care, and I have initiated the establishment of the plan of care. The patient will be followed by a physician who will periodically review the plan of care. Time Spent With Patient Time: Total time managing care of this patient today ____ minutes.
== END 2023-09-15 13:56 | disposition home health service (06) | DRG 206 ==
LOC: HO.ED 15:28 → HO.EDOVER 16:52 → HO.IMC 20:19
PROVIDERS: Student in an Organized Health Care Education/Training Program; Admitting Provider Student in an Organized Health Care Education/Training Program; Emergency Provider Emergency Medicine; PCP Nurse Practitioner Family; Visit Provider Internal Medicine
DX: T82.868A Thrombosis due to vascular prosthetic devices, implants and grafts, initial encounter (principal); I26.99 Other pulmonary embolism without acute cor pulmonale; R78.81 Bacteremia; E66.01 Morbid (severe) obesity due to excess calories; B95.1 Streptococcus, group B, as the cause of diseases classified elsewhere; E11.9 Type 2 diabetes mellitus without complications; I10 Essential (primary) hypertension; Y74.1 Therapeutic (nonsurgical) and rehabilitative general hospital and personal-use devices associated with adverse incidents; G47.33 Obstructive sleep apnea (adult) (pediatric); Z68.41 Body mass index [BMI] 40.0-44.9, adult; Z79.84 Long term (current) use of oral hypoglycemic drugs; Z79.899 Other long term (current) drug therapy
CPT/HCPCS: 36415; 71275; 80048; 82947; 83880; 84484; 85025; 85027; 85610; 85730; 93005; 93971; 99285; J0696; J1644; Q9967

== ENCOUNTER → 2023-09-12 13:12 | Outpatient (BNV) | payer OTHER, SELFPAY | PROVIDERS: Admitting Provider Student in an Organized Health Care Education/Training Program; Emergency Provider Emergency Medicine; PCP Nurse Practitioner Family; Visit Provider Internal Medicine Cardiovascular Disease | DX: R06.00 Dyspnea, unspecified (principal) | CPT/HCPCS: 93010 ==

== ENCOUNTER → 2023-09-12 16:44 | Outpatient (BNV) | payer OTHER, SELFPAY | PROVIDERS: Admitting Provider Student in an Organized Health Care Education/Training Program; Emergency Provider Emergency Medicine; PCP Nurse Practitioner Family; Visit Provider Student in an Organized Health Care Education/Training Program | DX: R09.02 Hypoxemia (principal); I82.621 Acute embolism and thrombosis of deep veins of right upper extremity; I26.99 Other pulmonary embolism without acute cor pulmonale | CPT/HCPCS: 99223; 99232; 99239; G0180 ==

== ENCOUNTER 2023-09-16 12:55 | Outpatient (RCR) | payer BC, OTHER, SELFPAY | END 2023-11-14 09:33 | disposition home or self-care (01) | LOC: HO.WCC 12:55 | PROVIDERS: PCP Nurse Practitioner Family; Visit Provider Physician Assistant | DX: E11.621 Type 2 diabetes mellitus with foot ulcer (principal); L97.512 Non-pressure chronic ulcer of other part of right foot with fat layer exposed; E11.40 Type 2 diabetes mellitus with diabetic neuropathy, unspecified; I10 Essential (primary) hypertension; R78.81 Bacteremia; I26.90 Septic pulmonary embolism without acute cor pulmonale; L84 Corns and callosities; E66.8 Other obesity; Z79.2 Long term (current) use of antibiotics; Z79.84 Long term (current) use of oral hypoglycemic drugs; Z79.01 Long term (current) use of anticoagulants; Z87.891 Personal history of nicotine dependence | CPT/HCPCS: 11042; 99212 ==

== ENCOUNTER 2023-09-30 15:17 | Emergency (ER) | payer BC, SELFPAY ==
[2023-09-30 16:18] VITALS: BP 155/82; PULSE 78; RESP 18; O2SAT 92; BMI 42.0
--- NOTE | 2023-09-30 17:53 | ED_ITS ---
HPI - Extremity Problem General Chief complaint: Extremity Injury, Upper Stated complaint: pic line came out Time Seen by Provider: 09/30/23 17:47 Source: patient, RN notes reviewed and old records reviewed Mode of arrival: ambulatory Limitations: no limitations History of Present Illness ED Provider: David HPI Narrative: 57-year-old male past medical history significant for osteomyelitis currently receiving ceftriaxone daily for a total of 7 more doses, DVT/PE on Eliquis, hypertension, hyperlipidemia, diabetes presents for evaluation of ?my PICC line came out. ? Patient is receiving 6 weeks of ceftriaxone due to osteomyelitis of the right great toe with bacteremia. He was seen on 08/28/[address] Curry, infectious Disease who recommended a total of 6 weeks of ceftriaxone. The patient reports that he has been administering the ceftriaxone at home and has a shipment of the antibiotic coming tomorrow His last dose was this morning and he has not due until tomorrow He reports that he was discharged wound care today as the wound is healing appropriately Denies any fevers or chills Related Data Home Medications ?Medication ?Instructions ?Recorded ?Confirmed diphenhydramine HCl 25 mg capsule 25 mg PO DAILY PRN Allergy Symptoms 08/27/23 09/12/23 (Benadryl) lisinopril 40 mg tablet 20 mg PO BID 09/12/23 09/12/23 Previous Rx's ?Medication ?Instructions ?Recorded sildenafil 50 mg tablet 50 mg PO DAILY PRN sexual activity 11/08/22 #14 tabs blood sugar diagnostic (FreeStyle #100 ea 11/13/22 Lite Strips) blood-glucose meter (FreeStyle #1 ea 11/13/22 Lite Meter kit) lancets 28 gauge (FreeStyle #100 ea 11/13/22 Lancets) atorvastatin 20 mg tablet 20 mg PO BEDTIME #90 tabs 08/11/23 celecoxib 200 mg capsule 200 mg PO BID 30 days #60 caps 08/26/23 ceftriaxone 2 gram solution for 2 g IV Q24H #0 ea 09/01/23 injection metformin 500 mg tablet 500 mg PO BIDWMEAL #180 tabs 09/01/23 apixaban 5 mg (74 tabs) tablets in See Rx Instructions .Route 09/15/23 a dose pack .COMPLEX #74 ea transparent dressings 2 3/8 X 2 #12 ea 09/15/23 3/4 ([id number] Frame Delivery Dressing) Allergies Allergy/AdvReac Type Severity Reaction Status Date / Time SEASONAL ALLERGIES Allergy Intermediate Runny Nose Uncoded 09/30/23 16:20 Review of Systems Constitutional: Constitutional: Denies body ache(s), Denies chills and Denies fever(s) [facility] Past Medical History Medical History Family history of cardiovascular disease Elevated ferritin HTN (hypertension) High triglycerides ALPHONSE (obstructive sleep apnea) Morbid obesity Nicotine dependence, cigarettes, uncomplicated Fatty liver History of colon polyps (~2018) Osteoarthritis of both knees History of Lyme disease Surgical History History of colonoscopy History of mandibular surgery Family History Family History Father CVD (cardiovascular disease) History of heart attack, Onset Age: 50 Mother No problems noted. Brother No problems noted. Sister No problems noted. Sister No problems noted. Sister No problems noted. Paternal Uncle History of heart attack, Onset Age: 50 Social History Social History Household Members: Spouse Housing: Apartment Do you presently have visiting nurse or other home services: Yes (for IV abx) Alcohol intake: current Alcohol intake frequency: 0-2 drinks per day Alcohol type: beer Patient Tobacco Use Status: Former Tobacco user Tobacco use type: Cigarette Cigarettes Per Day: 3 Years Smoked: 40 e-Cigarette/Vaping Use: Former Use Second Hand Smoke Exposure: No Substance Use Type: Marijuana Advance Directives: No Advance Directives Information Provided: No Do you have a plan to hurt others: No Plan service: No Current occupational status: employed Current occupation: [employer] Cognitive needs: No Hearing needs: No Vision needs: No Physical Exam Vital Signs: Vital Signs: Last Vital Signs Pulse 78 09/30/23 16:18 Resp 18 09/30/23 16:18 BP 155/82 H 09/30/23 16:18 Pulse Ox 92 09/30/23 16:18 O2 Del Method Room Air 09/30/23 16:18 BMI result Body Mass Index 42.0 Const: General: healthy appearing, comfortable, no acute distress, alert and awake Nutritional Appearance: well nourished Orientation/consciousness: patient oriented x3 HEENT: Head: Yes normocephalic and Yes atraumatic Eyes: Eyelids: Yes eyelids normal Conjunctivae: conjunctivae normal Sclerae: sclerae normal Corneas: corneas normal Pupils: Equal, round and reactive pupils present EOM: EOMs intact bilaterally Neck: Neck: Yes full ROM Resp: Effort & Inspection: normal respiratory effort, able to speak in complete sentences and not labored Skin: General skin exam: elasticity normal Neuro: General: patient oriented x3 Cranial nerves: Yes Equal, round and reactive pupils present and Yes Bilaterally intact EOM present Cognition (Neuro): normal cognition Course Reevaluation(s) Reevaluation #1: Patient returned from intervention radiology with a successful midline placed in the left upper arm. He is stable for discharge Time: 19:49 Medical Decision Making Medical Decision Making MDM Narrative: 57-year-old male presents for evaluation of ?my PICC line came out. ? He needs another week's worth of IV antibiotics which is already set up at home. He is not septic, vital signs are stable. I discussed with Radiology, it will be possible to place a midline tonight left upper extremity due to a known right upper extremity DVT. The patient was brought over to Interventional Radiology and can likely be discharged from the ER postprocedure Differential Diagnosis Differential Diagnoses: The differential diagnosis associated with the presentation includes Osteomyelitis Bacteremia Sepsis Infection Discharge Plan Discharge Clinical Impression: Displacement of peripherally inserted central catheter (PICC), Osteomyelitis Patient Disposition: Home, Self-Care Instructions: Osteomyelitis (ED) Additional Instructions: You had a midline placed in the left upper arm instead of a PICC line Continue your ceftriaxone at home once daily until 10/07/2023 as previously planned Return for any new or worsening symptoms Follow-up with your outpatient providers Prescriptions: No Action (DME) blood-glucose meter [FreeStyle Lite Meter] Kit See Rx Instructions .Route Qty: 1 0RF Rx Instructions: Use to check fasting blood sugar and a random blood sugar twice daily (DME) FreeStyle Lite Strips Strip See Rx Instructions .Route Qty: 100 3RF Rx Instructions: Use to check fasting blood sugar and a random blood sugar twice daily (DME) lancets [FreeStyle Lancets] 28 gauge misc See Rx Instructions .Route Qty: 100 3RF Rx Instructions: Use to check fasting blood sugar and a random blood sugar twice daily atorvastatin 20 mg tablet 20 mg PO BEDTIME Qty: 90 1RF celecoxib 200 mg capsule 200 mg PO BID 30 Days Qty: 60 3RF diphenhydramine HCl [Benadryl] 25 mg Capsule 25 mg PO DAILY PRN (Reason: Allergy Symptoms) ceftriaxone 2 gram Recon Soln 2 g IV Q24H Qty: 0 0RF metformin 500 mg tablet 500 mg PO BIDWMEAL Qty: 180 0RF lisinopril 40 mg tablet 20 mg PO BID apixaban 5 mg (74 tabs) tablets,dose pack See Rx Instructions .ROUTE .COMPLEX Qty: 74 2RF Rx Instructions: Take 1 tab twice daily for 6 days (12 doses), then after that take 1 tab twice daily thereafter (DME) transparent dressings [[id number] Frame Delivery Dressing] 2 3/8 X 2 3/4 bandage See Rx Instructions .Route Qty: 12 0RF Rx Instructions: As directed sildenafil 50 mg tablet 50 mg PO DAILY PRN (Reason: sexual activity) Qty: 14 0RF Rx Instructions: administer 30 minutes to 4 hours before activity Print Language: [place]
--- NOTE | 2023-09-30 18:44 | PC.NURSE ---
1810 late entry. pt walked to IR for new midline insertion.
--- NOTE | 2023-09-30 19:03 | HO.MIDLINE_ITS ---
Midline Insertion MIDLINE INSERTION Diagnosis: RIGHT GREAT TOE INFECTION Indication: 1 more week of Antibx Pertinent Labs: Reviewed Technique: Using sterile technique including cap and mask, glove and drape, the Left arm was prepped and draped in the usual sterile fashion of full barrier technique with G. Using ultrasound guidance, Left Basilic vein access was obtained on first attempt. 4FR SINGLE LUMEN NON-PASV POWERMIDLINE TRIMED TO 10CM was positioned. The procedure was performed in RM 272. Ultrasound was used to document vein patency and for needle entry. A formal ultrasound picture was recorded. Vascular Sulphate Tester has released the line for use and it is currently dressed with a StatLock, Tegaderm, and CHG disc. Verification has been performed for blood return and line patency. Arm Circumference: 39CM Equipment: Glia[employer]ure POWERMIDLINE CATHETER Catheter Type: 4FR SINGLE LUMEN NON-PASV POWERMIDLINE TRIMED TO 10CM Lot #: [id number]
[2023-09-30 19:57] VITALS: BP 155/82; PULSE 78; RESP 18; TEMP 36.3; O2SAT 92
== END 2023-09-30 19:58 | disposition home or self-care (01) ==
PROVIDERS: Emergency Provider Emergency Medicine; PCP Nurse Practitioner Family
DX: T82.524A Displacement of infusion catheter, initial encounter (principal); M86.9 Osteomyelitis, unspecified; I10 Essential (primary) hypertension; I82.409 Acute embolism and thrombosis of unspecified deep veins of unspecified lower extremity; Z79.01 Long term (current) use of anticoagulants; Z79.899 Other long term (current) drug therapy; E11.9 Type 2 diabetes mellitus without complications
CPT/HCPCS: 36410; 99282; 99285; C1751

== ENCOUNTER 2023-10-06 13:35 | Outpatient (AMB) | payer BC, SELFPAY ==
[2023-10-06 13:35] VITALS: PULSE 94; TEMP 37.4; O2SAT 96; BMI 42.5
--- NOTE | 2023-10-06 13:35 | A.OFFVIS_ITS ---
Vital Signs 3 10/06/23 13:35 Height 5 ft 9 in Weight 288 lb BMI 42.5 Pulse 94 Pulse Source Pulse Oximeter Temp 99.3 F Temp Source Oral Pulse Oximetry (%) 96 Intake Visit Reasons: reff [facility]/strepb bacteremia/endpicc/10/07/2023/s Allergies SEASONAL ALLERGIES Allergy (Intermediate, Uncoded 10/06/23 13:37) Runny Nose HPI HPI reff [facility]/strepb bacteremia/endpicc/10/07/2023/s: Details: I had seen him in hospital. He has right great toe infection and is finishing IV Ceftriaxone 2 g daily for Group B strep bacteremia ,08/27. He has no rash or diarrhea. He denies fever but temperature 99.3 today. Foot is looking well. He is discharged from Wound Care. He had tape reaction right arm and line switched to left PICC line. [facility] Medical History Family history of cardiovascular disease Elevated ferritin HTN (hypertension) High triglycerides ALPHONSE (obstructive sleep apnea) Morbid obesity Nicotine dependence, cigarettes, uncomplicated Fatty liver History of colon polyps (~2017) Osteoarthritis of both knees History of Lyme disease Surgical History History of colonoscopy History of mandibular surgery Family History Father CVD (cardiovascular disease) History of heart attack, Onset Age: 50 Mother No problems noted. Brother No problems noted. Sister No problems noted. Sister No problems noted. Sister No problems noted. 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 Cognitive needs: No Hearing needs: No Vision needs: No Review of Systems Const All systems reviewed & are unremarkable except as noted in HPI and below Physical Exam Vital Signs: Last Vital Signs Temp 99.3 F 10/06/23 13:35 Pulse 94 10/06/23 13:35 Pulse Ox 96 10/06/23 13:35 BMI result Body Mass Index 42.5 Const Other: General: cooperative Orientation/consciousness: patient oriented x3 HEENT Head: Yes normal to inspection Mouth: Normal oral and palatal mucosa present Eyes General: appearance normal, both eyes and all related structures Pupils: Equal, round and reactive pupils present Resp Effort & Inspection: normal respiratory effort Cardio Rate: regular rate Rhythm: regular rhythm GI Palpation (GI): Soft to palpation and nontender General: Yes no CVA tenderness Back/Spine/Pelvis Back: no CVA tenderness Skin General skin exam: no rashes or lesions noted Neuro General: patient oriented x3 Cranial nerves: Yes CN's II-XII intact bilaterally and Yes Equal, round and reactive pupils present Extrem General: Yes normal to inspection Psych Appearance: grossly normal Assessment & Plan Assessment & Plan (1) Toe infection: Code(s): L08.9 - Local infection of the skin and subcutaneous tissue, unspecified Category: Medical Plan: na (2) Bacteremia due to group B Streptococcus: Comment: He is doing well. Area has healed. Code(s): R78.81 - Bacteremia; B95.1 - Streptococcus, group B, as the cause of diseases classified elsewhere Category: Medical Plan: Pull PICC line. Hopefully, no recurrence. See only if needed. (3) PICC (peripherally inserted central catheter) in place: Code(s): Z45.2 - Encounter for adjustment and management of vascular access device Category: Medical Plan: na Orders: Orders 2 IR cvc remove any age Today L08.9 - Local infection of the skin and subcutaneous tissue, unspecified Coding Level of Care Code Est Pt Level 4 (02656) Diagnoses Toe infection L08.9 Bacteremia due to group B Streptococcus R78.81; B95.1 PICC (peripherally inserted central catheter) in place Z45.2
== END 2023-10-06 14:02 | disposition home or self-care (01) ==
LOC: HO.HID 13:35
PROVIDERS: PCP Nurse Practitioner Family; Visit Provider Internal Medicine
DX: L08.9 Local infection of the skin and subcutaneous tissue, unspecified (principal); R78.81 Bacteremia; B95.1 Streptococcus, group B, as the cause of diseases classified elsewhere; Z45.2 Encounter for adjustment and management of vascular access device
CPT/HCPCS: 99214

== ENCOUNTER → 2023-10-06 13:35 | Outpatient (BNVA) | payer BC, SELFPAY | PROVIDERS: PCP Nurse Practitioner Family; Visit Provider Internal Medicine ==

== ENCOUNTER 2023-10-07 08:53 | Outpatient (AMB) | payer BC, SELFPAY ==
--- NOTE | 2023-10-07 08:56 | MHC.PC.OV ---
Vital Signs 10/07/23 08:59 Height 5 ft 9 in Weight 285 lb BMI 42.1 BP 134/82 Blood Pressure Location Rt brachial Position Sitting Pulse 91 Pulse Source Pulse Oximeter Pulse Oximetry (%) 97 Oxygen Delivery Method Room Air Intake Visit Reasons: Complete STD paperwork Intake Note: Patient here for HDF for being septic and complete STD paperwork. Allergies SEASONAL ALLERGIES Allergy (Intermediate, Uncoded 10/07/23 09:57) Runny Nose Medication List - Last Reconciled 10/07/23 by Shine Elizabeth [facility] apixaban Take 1 tab twice daily for 6 days (12 doses), then after that take 1 tab twice daily thereafter atorvastatin 20 mg PO BEDTIME blood sugar diagnostic (FreeStyle Lite Strips) Use to check fasting blood sugar and a random blood sugar twice daily blood-glucose meter (FreeStyle Lite Meter kit) Use to check fasting blood sugar and a random blood sugar twice daily ceftriaxone 2 grams IV Q24H diphenhydramine HCl (Benadryl) 25 mg PO DAILY PRN lancets (FreeStyle Lancets) Use to check fasting blood sugar and a random blood sugar twice daily lisinopril 20 mg PO BID metformin 500 mg PO BIDWMEAL sildenafil 50 mg PO DAILY PRN transparent dressings ([id number] Frame Delivery Dressing) As directed Tobacco use date assessed: 09/08/23 Dental Screening Dental Screen Date: 09/08/23 HPI Complete STD paperwork HPI Details Patient is here today to fill out FMLA paperwork. He was recently hospitalized and diagnosed with osteomyelitis (toe), and is currently be treated with ceftriaxone via PICC line. He has further following up with Infectious Disease. PICC line is being pulled today, he is to follow up with hematology for PE/DVT [facility] Medical History Family history of cardiovascular disease Elevated ferritin HTN (hypertension) High triglycerides ALPHONSE (obstructive sleep apnea) Morbid obesity Nicotine dependence, cigarettes, uncomplicated Fatty liver History of colon polyps (~2018) Osteoarthritis of both knees History of Lyme disease Surgical History History of colonoscopy History of mandibular surgery Family History Father CVD (cardiovascular disease) History of heart attack, Onset Age: 50 Mother No problems noted. Brother No problems noted. Sister No problems noted. Sister No problems noted. Sister No problems noted. 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 6. Feeling bad about yourself - or that you are a failure or have let yourself or your family down: not at all 7. Trouble concentrating on things, such as reading the newspaper or watching television: not at all 8. Moving or speaking so slowly that other people could have noticed. Or the opposite - being so fidgety or restless that you have been moving around a lot more than usual: not at all 9. Thoughts that you would be better off or of hurting yourself in some way: not at all Source: Developed by Drs. Timothy Crockett, Harmony Gross, Santosh Kaiser and colleagues, with an educational gerard from [employer]. Thrive Questionnaire Date Thrive assessed: 09/13/23 I am a: Patient What is your living situation today?: I have a steady place to live Within the past 12 months, did the food you bought not last and you didn't have the money to get more?: Never true Within the past 12 months, did you worry whether your food would run out before you got money to buy more?: Sometimes True Do you have trouble paying for medicines?: I choose not to answer this question Do you have trouble getting transportation to medical appointments?: No Do you have trouble paying your heating and electricity bill?: No Do you have trouble taking care of your child, family member or friend?: No Do you have trouble with day-to-day activities such as bathing, preparing meals, shopping, managing finances, etc.?: No Are you currently unemployed and looking for a job?: No Are you interested in more education?: No Please select the resources that you would like help with: Housing/Residential Currently or been in a relationship where the following occur: I choose not to answer THRIVE Score: 1 AUDIT C Alcohol Use Questionnaire (AUDIT-C) 1. How often do you have a drink containing alcohol?: Monthly or less 2. How many drinks containing alcohol do you have on a typical day when you are drinking?: 1 or 2 3. How often do you have six or more drinks on one occasion?: Less than monthly Total Score: 2 ALEX-7 AMB Questionnaire ALEX-7 Feeling nervous, anxious, or on edge: 0 = Not at all Not being able to stop or control worryin = Several days Worrying too much about different things: 1 = Several days Trouble relaxin = Several days Being so restless that it is hard to sit still: 1 = Several days Becoming easily annoyed or irritable: 1 = Several days Feeling afraid as if something awful might happen: 1 = Several days Total ALEX-7 score (0-4 normal; 5-9 mild; 10-14 moderate; 15-21 severe): 6 Source: Developed by Drs. Timothy Crockett, Harmony Gross, Santosh Kaiser and colleagues, with an educational gerard from [employer]. ALEX-7 Assessment Billing ALEX-7 Assessment Tool: ALEX-7 Assessment 55571 Review of Systems Card Denies chest pain at rest, Denies chest pain with activity and Denies dyspnea Resp Denies dyspnea Skin/Breast Denies bleeding lesions and Denies rash Physical exam (Primary Care) Vital Signs: Last Vital Signs Pulse 91 10/07/23 08:59 BP 134/82 10/07/23 08:59 Pulse Ox 97 10/07/23 08:59 Oxygen Delivery Method Room Air 10/07/23 08:59 BMI result Body Mass Index 42.1 Tobacco/Smoking Status: Tobacco use Status Tobacco use date assessed 09/08/23 10/07/23 08:59 Patient Tobacco Use Status Former Tobacco user 10/07/23 08:59 Tobacco use type Cigarette 10/07/23 08:59 e-Cigarette/Vaping Use Former Use 10/07/23 08:59 Thrive Assessment: Date of Thrive Assessment Date Thrive assessed 09/13/23 10/07/23 08:59 Currently or been in a relationship where the following occur: I choose not to answer Resp Auscultation: clear to auscultation bilaterally Cardio Rate: regular rate Rhythm: regular rhythm Heart sounds: S1 normal heart sound present and S2 normal heart sound present Skin Other: right foot, plantar aspect of first toe with heeled wound (scabbed). Assessment and Plan Assessment & Plan (1) Toe infection: Code(s): L08.9 - Local infection of the skin and subcutaneous tissue, unspecified Plan: toe is fairly well healed. PICC still present, being oulled today. (2) PICC (peripherally inserted central catheter) in place: Code(s): Z45.2 - Encounter for adjustment and management of vascular access device (3) Bacteremia due to group B Streptococcus: Comment: He is doing well. Area has healed. Code(s): R78.81 - Bacteremia; B95.1 - Streptococcus, group B, as the cause of diseases classified elsewhere (4) Osteomyelitis: Code(s): M86.9 - Osteomyelitis, unspecified (5) Pulmonary embolism: Code(s): I26.99 - Other pulmonary embolism without acute cor pulmonale Plan: on blood thinners, to follow up with hematology (6) Acute deep vein thrombosis (DVT) of right upper extremity: Code(s): I82.621 - Acute embolism and thrombosis of deep veins of right upper extremity Orders: Referrals Hematology & Oncology Referral I26.99 - Other pulmonary embolism without acute cor pulmonale, I82.621 - Acute embolism and thrombosis of deep veins of right upper extremity Coding Level of Care Code Est Pt Level 3 (00453) Diagnoses Toe infection L08.9 PICC (peripherally inserted central catheter) in place Z45.2 Bacteremia due to group B Streptococcus R78.81; B95.1 Osteomyelitis M86.9 Pulmonary embolism I26.99 Acute deep vein thrombosis (DVT) of right upper extremity I82.621 Additional Codes ALEX-7 Assessment Billing - ALEX-7 Assessment Tool: ALEX-7 Assessment 55085 ([id number])
[2023-10-07 08:59] VITALS: BP 134/82; PULSE 91; O2SAT 97; BMI 42.1
== END 2023-10-07 10:46 | disposition home or self-care (01) ==
PROVIDERS: PCP Nurse Practitioner Family; Visit Provider Nurse Practitioner Family
DX: R78.81 Bacteremia (principal); M86.9 Osteomyelitis, unspecified; I26.99 Other pulmonary embolism without acute cor pulmonale; I82.621 Acute embolism and thrombosis of deep veins of right upper extremity; L08.9 Local infection of the skin and subcutaneous tissue, unspecified; Z45.2 Encounter for adjustment and management of vascular access device; B95.1 Streptococcus, group B, as the cause of diseases classified elsewhere
CPT/HCPCS: 99213

== ENCOUNTER 2023-10-30 08:07 | Outpatient (AMB) | payer BC, SELFPAY ==
--- NOTE | 2023-10-30 07:37 | A.OFFPC_ITS ---
Intake Visit Reasons: FMLA paperwork Allergies SEASONAL ALLERGIES Allergy (Intermediate, Uncoded 10/07/23 09:57) Runny Nose Tobacco use date assessed: 09/08/23 Dental Screening Dental Screen Date: 09/08/23 HPI FMLA paperwork HPI Details Pt needs paperwork filled out to return to work. He was out of work due to osteomyelitis/bacteremia. He is doing well. Denies fever, chills, and dizziness. He will return around November 04 unless contraindicated by hematology. He has a follow up with hematology for PE before this date. Pt reports walking a lot and denies any SOB, CP. [facility] Medical History Family history of cardiovascular disease Elevated ferritin HTN (hypertension) High triglycerides ALPHONSE (obstructive sleep apnea) Morbid obesity Nicotine dependence, cigarettes, uncomplicated Fatty liver History of colon polyps (~2017) Osteoarthritis of both knees History of Lyme disease Surgical History History of colonoscopy History of mandibular surgery Family History Father CVD (cardiovascular disease) History of heart attack, Onset Age: 50 Mother No problems noted. Brother No problems noted. Sister No problems noted. Sister No problems noted. Sister No problems noted. 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 [employer] Cognitive needs: No Hearing needs: No Vision needs: No Questionnaire Thrive Questionnaire Date Thrive assessed: 09/13/23 Review of Systems Const Reports as per HPI Physical exam (Primary Care) Tobacco/Smoking Status: Tobacco use Status Tobacco use date assessed 09/08/23 10/30/23 07:38 Patient Tobacco Use Status Former Tobacco user 10/30/23 07:38 Tobacco use type Cigarette 10/30/23 07:38 e-Cigarette/Vaping Use Former Use 10/30/23 07:38 Thrive Assessment: Date of Thrive Assessment Date Thrive assessed 09/13/23 10/30/23 07:38 Const General: cooperative Orientation/consciousness: patient oriented x3 Neuro General: patient oriented x3 Psych Appearance: grossly normal Mental Status: mental status grossly normal Speech and movement: Clear speech present Affect: normal affect Attitude: cooperative Thought process: Normal thought process present Thought content: Normal thought content present Insight: Good insight present (Psych) Judgement: Good judgement present (Psych) Telehealth Telehealth Telehealth Platform: [employer] Location of provider rendering services: practice address Location of patient: address on file Patient Identification confirmed using: Name, : Yes Telehealth method: video Patient verbally consented to treatment: Yes Patient verbally consented to billing insurance company: Yes Patient informed of any privacy concerns related to visit: Yes Minutes spent on Phone/Video with Pt.: 10 Assessment and Plan Assessment & Plan (1) Bacteremia due to group B Streptococcus: Comment: He is doing well. Area has healed. Code(s): R78.81 - Bacteremia; B95.1 - Streptococcus, group B, as the cause of diseases classified elsewhere (2) Osteomyelitis: Code(s): M86.9 - Osteomyelitis, unspecified Plan: denies any fevers or chills. Plan The patient agreed to the use of a medical assisting instructor for this encounter. Scribed for CECY Jain by maria esther Montaño scribe, on 10/30/2023 at 07:35 EST. Coding Level of Care Code Tele Est Pt Level 3 (56873) Diagnoses Bacteremia due to group B Streptococcus R78.81; B95.1 Osteomyelitis M86.9
== END 2023-10-30 09:26 | disposition home or self-care (01) ==
LOC: HO.HMGC 08:07
PROVIDERS: PCP Nurse Practitioner Family; Visit Provider Nurse Practitioner Family
DX: R78.81 Bacteremia (principal); B95.1 Streptococcus, group B, as the cause of diseases classified elsewhere; M86.9 Osteomyelitis, unspecified
CPT/HCPCS: 99213

== ENCOUNTER → 2023-11-04 11:20 | Outpatient (BNV) | payer BC, SELFPAY | PROVIDERS: PCP Nurse Practitioner Family; Referring Provider Nurse Practitioner Family; Visit Provider Internal Medicine | DX: I82.621 Acute embolism and thrombosis of deep veins of right upper extremity (principal) | CPT/HCPCS: 99204 ==

== ENCOUNTER 2023-12-01 13:20 | Outpatient (AMB) | payer BC, SELFPAY ==
[2023-12-01 13:37] VITALS: BMI 41.3
--- NOTE | 2023-12-01 13:37 | MHC.OFFVIS ---
Vital Signs 12/01/23 13:37 Height 5 ft 9 in Weight 280 lb BMI 41.3 Intake Visit Reasons: OV-OA b/L knees-looking to get cortisone injection Intake Note: Raheem is a 58 year old male that presents himself today with bilateral knee pain, patient state he'd like to get cortisone B/L knee injections Allergies SEASONAL ALLERGIES Allergy (Intermediate, Uncoded 11/04/23 11:44) Runny Nose Medication List - Last Reconciled 12/01/23 by Kathrine Stanford PA-C apixaban Take 1 tab twice daily for 6 days (12 doses), then after that take 1 tab twice daily thereafter apixaban 5 mg PO BID atorvastatin 20 mg PO BEDTIME blood sugar diagnostic (FreeStyle Lite Strips) Use to check fasting blood sugar and a random blood sugar twice daily blood-glucose meter (FreeStyle Lite Meter kit) Use to check fasting blood sugar and a random blood sugar twice daily ceftriaxone 2 grams IV Q24H diphenhydramine HCl (Benadryl) 25 mg PO DAILY PRN lancets (FreeStyle Lancets) Use to check fasting blood sugar and a random blood sugar twice daily lisinopril 20 mg PO BID metformin 500 mg PO BIDWMEAL sildenafil 50 mg PO DAILY PRN transparent dressings (RF1108 Frame Delivery Dressing) As directed [facility] Medical History Family history of cardiovascular disease Elevated ferritin HTN (hypertension) High triglycerides ALPHONSE (obstructive sleep apnea) Morbid obesity Nicotine dependence, cigarettes, uncomplicated Fatty liver History of colon polyps (~2018) Osteoarthritis of both knees History of Lyme disease Surgical History History of colonoscopy History of mandibular surgery Family History Father CVD (cardiovascular disease) History of heart attack, Onset Age: 50 Mother No problems noted. Brother No problems noted. Sister No problems noted. Sister No problems noted. Sister No problems noted. 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 Tenderness along the medial and lateral joint line. Full ROM with crepitus. Negative Devonte?s. No ligamentous laxity. NVI. ? Office Procedures Joint Injection/Aspiration Joint Injection/Aspiration Primary Site: right knee Secondary Site: left knee Prep: site was prepped using aseptic technique, ethochloride spray was applied and injection warnings given Injected: 80 mg of, DepoMedrol, with 8 mL of, 1% plain lidocaine and in the joint Approach Used: anterolateral Procedure: The patient tolerated the procedure well and there was some relief with the local anesthesia Coding 51009 - Glenohumeral/Tronchanteric Bursa/Intraarticular Procedure code (CPT) selection complete Assessment & Plan Assessment & Plan (1) Osteoarthritis of right knee: Code(s): M17.11 - Unilateral primary osteoarthritis, right knee Category: Medical Plan We discussed options today, which include steroid injection. The patient did consent to move forward with the bilateral knee injection, which was tolerated well. I recommended rest, ice, and elevation and OTC anti-inflammatories as needed for discomfort. If symptoms persist or worsen over the next 6-8 weeks, patient will contact the office, otherwise follow-up as needed. ? Patient Instructions: Scribed for Kathrine Stanford PA-C, by Leandro Barahona medical legal investigator, on 12/01/2023 at 1:30 PM EST.? I, Kathrine Stanford PA-C, have personally reviewed and agree with the information entered by the scribe. Coding Level of Care Code Est Pt Level 3 (76183) Complex EM visit Add On G2211 Diagnoses Osteoarthritis of right knee M17.11 CPT Codes Coding - Joint 7: 57348 - Glenohumeral/Tronchanteric Bursa/Intraarticular ([id number])
== END 2023-12-01 14:37 | disposition home or self-care (01) ==
PROVIDERS: PCP Nurse Practitioner Family; Visit Provider Physician Assistant
DX: M17.0 Bilateral primary osteoarthritis of knee (principal)
CPT/HCPCS: 20610

== ENCOUNTER → 2023-12-01 13:20 | Outpatient (BNVA) | payer BC, SELFPAY | PROVIDERS: PCP Nurse Practitioner Family; Visit Provider Physician Assistant | DX: M17.11 Unilateral primary osteoarthritis, right knee (principal); M25.562 Pain in left knee | CPT/HCPCS: 20610; J1010 ==

== ENCOUNTER → 2024-01-22 09:45 | Outpatient (BNVA) | payer BC, SELFPAY | PROVIDERS: PCP Nurse Practitioner Family ==

== ENCOUNTER 2024-02-18 06:07 | Outpatient (REF) | payer BC, SELFPAY ==
[2024-02-18 09:57] LABS: Appearance Urine Turbid; Color Urine Yellow; Glucose Urine UA Negative (Negative); Leukocyte Esterase Urine Negative (Negative); Nitrite Urine Negative (Negative); PH 5.5 (5.0-9.0); Specific Gravity - Urine 1.025 (1.005-1.025); Urine Blood Negative (Negative); Urine Ketones Negative (Negative); Urine Protein Negative (Neg-Trace)
[2024-02-18 10:09] LABS: MANUAL DIFF FLAG NO
[2024-02-18 10:12] LABS: Estimated Average Glucose 128 mg/dL; Hemoglobin A1C 159.3423 umol/L; Hemoglobin A1c % 6.1 % (<6.0); Total Hemoglobin (HGBA1C) 3732.4684 umol/L
[2024-02-18 10:13] LABS: Basophils Percent Auto 0.5 % (0-2); Eosinophils Absolute Auto 0.2 X10*3/uL (0.0-0.4); Eosinophils Percent Auto 2.6 % (0-4); Hematocrit 44.5 % (42.0-52.0); Hemoglobin 14.9 g/dl (14.0-18.0); Imm Gran Abs Auto 0.04 X10*3/uL (0.00-0.03); Imm Gran Pct Auto 0.5 % (0.0-0.4); Lymphocytes Absolute Auto 2.2 X10*3/uL (1.2-4.9); Lymphocytes Percent Auto 29.4 % (20-40); Mean Corpuscular HGB Conc 33.5 g/dl (31.0-36.0); Mean Corpuscular Volume 83.6 fL (80.0-98.0); Mean Platelet Volume 11.9 fL (9.4-12.4); Monocytes Absolute Auto 0.6 X10*3/uL (0.1-1.2); Monocytes Percent Auto 7.5 % (2-11); Neutrophils Absolute Auto 4.4 x10*3/uL (2.0-8.3); Neutrophils Percent Auto 59.5 % (45-73); Platelet Count 158 X10*3/uL (160-400); Red Blood Count 5.32 X10*6/uL (4.60-5.80); Red Cell Distribution Width 13.5 % (11.0-16.0); White Blood Count 7.5 X10*3/uL (4.8-10.8)
[2024-02-18 10:34] LABS: Alanine Aminotransferase 30 U/L (0-40); Albumin Level 4.3 g/dL (3.5-5.0); Anion Gap 12 (12-20); Aspartate Amino Transferase 29 U/L (5-37); Bilirubin Total 0.5 mg/dL (0.0-1.0); Blood Urea Nitrogen 25 mg/dL (9-16); Calcium 9.1 mg/dL (8.4-10.2); Carbon Dioxide 28 mmol/L (22-29); Chloride 105 mmol/L (96-108); Cholesterol 119 mg/dL (<200); Estimated Glomerular Filt Rate > 60; Glucose Fasting 105 mg/dL (60-99); HDL Cholesterol 38 mg/dL (>40); LDL Cholesterol Calculated 39 mg/dL (<100); Potassium 4.3 mmol/L (3.3-5.1); Sodium 141 mmol/L (135-145); Total Protein 6.8 g/dL (6.5-8.0); Triglycerides 211 mg/dL (<150)
[2024-02-18 10:37] LABS: Prostate Specific Antigen Scr 0.38 ng/mL (<0.05-4.0)
[2024-02-18 10:56] LABS: Alkaline Phosphatase 84 U/L (39-117)
== END 2024-02-18 06:08 | disposition home or self-care (01) ==
LOC: HO.HMGCLDS 06:07
PROVIDERS: PCP Nurse Practitioner Family; Visit Provider Nurse Practitioner Family
DX: R78.81 Bacteremia (principal); B95.1 Streptococcus, group B, as the cause of diseases classified elsewhere; S91.109A Unspecified open wound of unspecified toe(s) without damage to nail, initial encounter; Z45.2 Encounter for adjustment and management of vascular access device; L08.9 Local infection of the skin and subcutaneous tissue, unspecified; Z12.5 Encounter for screening for malignant neoplasm of prostate; E11.9 Type 2 diabetes mellitus without complications
CPT/HCPCS: 36415; 80053; 80061; 81003; 83036; 84153; 84443; 85025

== ENCOUNTER → 2024-04-26 09:46 | Outpatient (BNVA) | payer OTHER, SELFPAY | PROVIDERS: PCP Nurse Practitioner Family; Visit Provider Physician Assistant Medical | DX: S46.912A Strain of unspecified muscle, fascia and tendon at shoulder and upper arm level, left arm, initial encounter (principal); S63.502A Unspecified sprain of left wrist, initial encounter; W00.0XXA Fall on same level due to ice and snow, initial encounter | CPT/HCPCS: 73030; 73110; 99203 ==

== ENCOUNTER → 2024-05-03 13:15 | Outpatient (BNVA) | payer OTHER, SELFPAY | PROVIDERS: PCP Nurse Practitioner Family; Visit Provider Physician Assistant Medical | DX: S46.912A Strain of unspecified muscle, fascia and tendon at shoulder and upper arm level, left arm, initial encounter (principal); S63.502A Unspecified sprain of left wrist, initial encounter; W00.0XXA Fall on same level due to ice and snow, initial encounter | CPT/HCPCS: 99213 ==

== ENCOUNTER → 2024-09-01 14:48 | Outpatient (BNVA) | payer OTHER, SELFPAY | PROVIDERS: PCP Nurse Practitioner Family; Visit Provider Physician Assistant Medical | DX: S83.92XA Sprain of unspecified site of left knee, initial encounter (principal); X58.XXXA Exposure to other specified factors, initial encounter | CPT/HCPCS: 73564; 99204 ==

== ENCOUNTER 2024-10-21 15:02 | Outpatient (REF) | payer BC, SELFPAY | END 2024-10-21 15:03 | disposition home or self-care (01) | LOC: HO.LAB 15:02 | PROVIDERS: PCP Nurse Practitioner Family; Visit Provider Nurse Practitioner Family | DX: N30.91 Cystitis, unspecified with hematuria (principal); M54.50 Low back pain, unspecified | CPT/HCPCS: 81003; 87086 ==

== ENCOUNTER 2024-10-21 15:02 | Outpatient (AMB) | payer BC, SELFPAY ==
[2024-10-21 15:07] VITALS: BP 150/72; PULSE 74; TEMP 37.1; O2SAT 96; BMI 41.5
--- NOTE | 2024-10-21 15:07 | AM.OFFWIN_ITS ---
Intake Vital Signs 10/21/24 15:07 Height 5 ft 9 in Weight 281 lb 6 oz BMI 41.5 BP 150/72 H Blood Pressure Location Rt brachial Position Sitting Pulse 74 Pulse Source Pulse Oximeter Temp 98.7 F Temp Source Oral Pulse Oximetry (%) 96 Oxygen Delivery Method Room Air Intake Visit Reasons: EP sharp pain on RT side/blood in the urine Patient Tobacco Use Status: Current everyday Tobacco user Talent Development Consultant Required: No Allergies SEASONAL ALLERGIES Allergy (Intermediate, Uncoded 11/04/23 11:44) Runny Nose Do you need a note to return to daycare/school/sports/work: No HPI HPI Comments History of Present Illness Details 58 y/o Male patient who presents to the walk in clinic with c/o Lower right sided Back pain associated with Hematuria. Reports that Hematuria has been there for 2 weeks now and Sharp stabbing lower back pain started this morning while [place]ing [place]. Reports that pain is associated with Nausea and vomiting. Reports Urinary Frequency and Urgency. Denies Fevers, or chills. [facility] Medical History (Updated 10/21/24 @ 16:04 by Leann Chaparro NP) Back pain Family history of cardiovascular disease Elevated ferritin HTN (hypertension) High triglycerides ALPHONSE (obstructive sleep apnea) Morbid obesity Nicotine dependence, cigarettes, uncomplicated Fatty liver History of colon polyps (~2018) Osteoarthritis of both knees History of Lyme disease Surgical History History of colonoscopy History of mandibular surgery Family History Father CVD (cardiovascular disease) History of heart attack, Onset Age: 50 Mother No problems noted. Brother No problems noted. Sister No problems noted. Sister No problems noted. Sister No problems noted. 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 [employer] Gender identity: Male Cognitive needs: No Hearing needs: No Vision needs: No Review of Systems Const All systems reviewed & are unremarkable except as noted in HPI and below Physical Exam Vital Signs: Last Vital Signs Temp 98.7 F 10/21/24 15:07 Pulse 74 10/21/24 15:07 BP 150/72 H 10/21/24 15:07 Pulse Ox 96 10/21/24 15:07 Oxygen Delivery Method Room Air 10/21/24 15:07 BMI result Body Mass Index 41.5 Const General: no acute distress; No comfortable Nutritional Appearance: obese Orientation/consciousness: patient oriented x3 GI Inspection: Yes Abdominal panniculus present and Yes obesity Palpation (GI): Soft to palpation, not firm, Tenderness to palpation present (GI) suprapubicly, no guarding, not rigid and No hepatosplenomegaly present Auscultation: Hypoactive bowel sounds present General: Yes CVA tenderness on the right Back/Spine/Pelvis Back: CVA tenderness Neuro General: patient oriented x3 Results AMB Urinalysis, Automated UA Leukoctes 0 Briana/uL Last Edit by Enzo Florian CMA on 10/21/24 15:45 UA Nitrite Negative Last Edit by Enzo Florian CMA on 10/21/24 15:45 UA Urobilinogen 0.2 mg/dL Last Edit by Enzo Florian CMA on 10/21/24 15 :45 UA Protein 15 mg/dL Last Edit by Enzo Florian CMA on 10/21/24 15:45 UA pH 6.0 Last Edit by Enzo Florian CMA on 10/21/24 15:45 UA Blood 200 Cristobal/uL Last Edit by Enzo Florian CMA on 10/21/24 15:45 UA Specific [place] 1.025 Last Edit by Enzo Florian CMA on 10/21/24 15:45 UA Ketone Negative Last Edit by Enzo Florian CMA on 10/21/24 15:45 UA Bilirubin 0 mg/dL Last Edit by Enzo Florian CMA on 10/21/24 15:45 UA Glucose 0 mg/dL Last Edit by Enzo Florian CMA on 10/21/24 15:45 Results Reviewed Results Reviewed: Laboratory Last Values Urine pH (Auto) 6.0 10/21/24 15:44 Specific [place] (Auto) 1.025 10/21/24 15:44 Urine Protein (Auto) 15 mg/dL 10/21/24 15:44 Glucose (UA)(Auto) 0 mg/dL 10/21/24 15:44 Urine Ketones (Auto) Negative 10/21/24 15:44 Urine Blood (Auto) 200 Cristobal/uL 10/21/24 15:44 Urine Nitrite (Auto) Negative 10/21/24 15:44 Urine Bilirubin (Auto) 0 mg/dL 10/21/24 15:44 Urine Urobilinogen (Auto) 0.2 mg/dL 10/21/24 15:44 Leukocyte Esterase (Auto) 0 Briana/uL 10/21/24 15:44 Assessment & Plan Assessment & Plan (1) Back pain: Code(s): M54.9 - Dorsalgia, unspecified Qualifiers: Back pain laterality: right Back pain location: low back pain Chronicity: acute Sciatica presence: without sciatica Qualified Code(s): M54.50 - Low back pain, unspecified Plan: Urinalysis Positive for Blood, Negative BRIANA and NIT Sent urine for C&S. Naproxen for pain relief. Ordered Flomax Advised to hydrate well with plenty of water. Orders: Orders AMB Urinalysis Automated Today Z13.9 - Encounter for screening, unspecified Urine Culture Today N30.90 - Cystitis, unspecified without hematuria Medications: New ondansetron 8 mg PO Q8H 30 tabs 0RF M54.50 - Low back pain, unspecified tamsulosin (Flomax) 0.4 mg PO DAILY 14 caps 0RF M54.50 - Low back pain, unspecified naproxen 500 mg PO BID 20 tabs 0RF M54.50 - Low back pain, unspecified Coding Level of Care Code Est Pt Level 4 (19926) Diagnoses Acute right-sided low back pain without sciatica M54.50 Back pain laterality: right Back pain location: low back pain Chronicity: acute Sciatica presence: without sciatica Time Spent (min) 20
--- OUTSIDE RECORDS SUMMARY | 2024-10-21 15:07 | XMS_ITS | Patient Health Record ---
[facility] [place] Address [address] [place] [address] Care Team Providers Care Head Of Geography Name Role Phone Shine Tom Primary Care Provider Unav ailable Zahida Morales Unavailable [phone] Allergies No Known Allergies Reason For Referral Diagnosis 1 Other hammer toe(s) (acquired), right foot (M20.41) Diagnosis 2 Arthritis of joint o f lesser toe, right (M19.071) Diagnosis 3 Other chronic osteom yelitis of left foot (M86.672) Diagnosis 4 Hallux limitus of ri ght foot (M20.5X1) Diagnosis 5 Pain in right toe(s) (M79.674) Referring Provider First Name Shine Referring Provider Last Name Clara Referred Organization [facility] Referred Provider Zahida Morales Referred Address [address] [place], [place],[address], Referred Provider Specialty Podiatry Referral Priority Routine Medications Medication SIG (Take, Route, Fr equency, Duration) Notes Start Date End Date Status Atorvastatin Calcium Active metFORMIN HCl Active Lisinopril Active Celecoxib Active Social History Tobacco Use: Social History Observation Description Date Details (start date - stop date) Current Smoker NA - NA Tobacco Use/Smoking Question Answer Notes Are you a: current smoker How often do you smoke cigarettes? every day How many cigarettes a day do you smoke? 5 or les s Tobacco use other than smoking: Question Answer Notes Are you an other tobacco user? No Problems Problem Type SNOMED Code ICD Code Onset Dates Problem Status W/U Status Risk Notes Problem Acquired hammer toe of right foot (7383413147574653) Other hammer toe(s) (acquired), right foot (M20.41) Active confirmed Problem Chronic osteomyelitis of ankle and/or foot (701231295) Other chronic osteomyelitis of left foot (M86.672) Active confirmed Problem Localized, primary osteoarthritis of the ankle and/or foot (225110238) Arthritis of joint of lesser toe, right (M19.071) Active confirmed Vital Signs Blood pressure diastolic 80 mm Hg 02/11/2024 Height 5ft9in in 02/11/2024 Blood pressure systolic 137 mm Hg 02/11/2024 Weight 280 lbs 02/11/2024 BMI 41.34 kg/m2 02/11/2024 Encounters Encounter Location Date Provider Diagnosis [address] [address] 12/23/2023 Zahida Morales Pain in right toe(s) M79.674 ; Other hammer toe(s) (acquired), right foot M20.41 ; Arthritis of joint of lesser toe, right M19.071 ; Hallux limitus of right foot M20.5X1 and Other chronic osteomyelitis of left foot M86.[address] [address] 02/11/2024 Zahida Morales Onychomycosis B35.1 ; Other hammer toe(s) (acquired), right foot M20.41 ; Pain in right toe(s) M79.674 ; Pain in left toe(s) M79.675 and Hallux limitus of right foot M20.5X1 [address] [address] 12/03/2023 Zahida Morales [address] [address] 12/23/2023 Zahida Morales Assessments Encounter Date Diagnosis (ICD Code) Assessment Notes Treatment Notes Treatment Clinical Notes Section Notes 12/23/2023 Pain in right toe(s) (ICD-10 - M79.674) 12/23/2023 Other hammer toe(s) (acquired), right foot (ICD-10 - M20.41) 02/11/2024 Other hammer toe(s) (acquired), right foot (ICD-10 - M20.41) 02/11/2024 Onychomycosis (ICD-10 - B35.1) 02/11/2024 Pain in right toe(s) (ICD-10 - M79.674) 12/23/2023 Arthritis of joint of lesser toe, right (ICD-10 - M19.071) 02/11/2024 Pain in left toe(s) (ICD-10 - M79.675) 12/23/2023 Hallux limitus of right foot (ICD-10 - M20.5X1) 12/23/2023 Other chronic osteomyelitis of left foot (ICD-10 - M86.672) 02/11/2024 Hallux limitus of right foot (ICD-10 - M20.5X1) Plan Of Treatment Pending Test Test Name Order Date X ray : Foot, right 3V 12/23/2023 Insurance Providers Payer Name Payer Address Payer Phone Subscriber Number Group Number Insured Name Patient Relationship to Insured Coverage Start Date Coverage End Date [facility] [address] [place] [address] [id number] Raheem Diaz Self - patient is the insured Medical (General) History Medical History History ICD Code Arthritis High Blood Pressure Chicken pox blood clots Sepsis Hospitalization History Reason Date(Month/Year) Blood Clots in lungs x4 2023 [facility]- septic 08/2023
--- OUTSIDE RECORDS SUMMARY | 2024-10-21 15:07 | XMS_ITS | Patient Health Record ---
Author Organization [facility] Address [address] [place] [address] Care Team Providers Care Machine Tool Builder Name Role Phone Prabhjot Nunez M.D. Primary Care Provider Sarai januszTimothy Salinas Unavailable [phone] Reason For Referral No Information Medications Medication SIG (Take, Route, Frequency, Duration) Notes Start Date End Date Status Lisinopril 20 MG Orally Act william Halley Allergy 180 MG 1 tablet as neede d Orally Once a day/as needed seasonal Active Meloxicam 10 MG Orally Acti ve Cyclobenzaprine HCl 20 MG/GM 1 tablet as needed Transdermal Active Social History Tobacco Use: Social History Observation Description Date Details (start date - stop date) Current Smoker NA - NA Tobacco Use/Smoking Question Answer Notes Patient is a current smoker How often do you smoke cigarettes? every day How many cigarettes a day do you smoke? 5 or les s Alcohol Screen Question Answer Notes Did you have a drink contain ing alcohol in the past year? Yes How often did you have a dri nk containing alcohol in the past year? 2 to 4 times a month (2 points) How many drinks did you have on a typical day when you were drinking in the past year? 10 or more drinks (4 points) Points 6 Interpretation Positive Section Notes: Smoker--currently down to 1 cig/day from 03/25 ppd in 03/2017; occ. beers Problems Problem Type SNOMED Code ICD Code Onset Dates Problem Status W/U Status Risk Notes Problem 350573410 Encounter for screening for malignant neoplasm of colon (Z12.11) Active confirmed Problem 221511909 Preprocedural examination (Z01.818) Active confirmed Plan Of Treatment Pending Test Test Name Order Date GI BIOPSY 08/11/2017 Future Test Test Name Order Date COLONOSCOPY 05/22/2017 Insurance Providers Payer Name Payer Address Payer Phone Subscriber Number Group Number Insured Name Patient Relationship to Insured Coverage Start Date Coverage End Date [employer] [address] [place] [id number] HALINA IRENE Self - patient is the insured Medical (General) History Medical History History ICD Code Seasonal allergies Sleep apnea-CPAP Denies MA,DM,CVA,Lung disease,renal dise ase Hx of lyme disease- 2014 HTN Arthritis in his knees--s/p cortisone in jections Surgical History Surgery Date(Month/Year) TMJ/ hx of broken jaw 1985
--- OUTSIDE RECORDS SUMMARY | 2024-10-21 15:07 | XMS_ITS | Clinical Summary ---
Author Organization [facility] Address [address] [place] [address] Phone Care Team Providers Care Entertainment Centre Manager Name Role Phone Unavailable Primary Care Provider Unavailabl e Social History Tobacco Use Types Packs/Day Years Used Date Smoking Tobacco: Never Assessed Education Answer Date Recorded Are you interested in more education? Not on anitha e 09/01/2023 Are you concerned about learning? Not on file 09/01/2023 No 09/01/2023 No 09/01/2023 Digital Access Answer Date Recorded No 09/01/2023 No 09/01/2023 Reliable internet access at home? Not on file 09/01/2023 Device with a working camera? Not on file Sex and Gender Information Value Date Recorded Sex Assigned at Not on file Legal Sex Male 9:37 AM EDT Gender Identity Not on file Sexual Orientation Not on file Plan of Treatment Not on file Medical Devices Not on file Additional Source Comments The information contained in this document represents components of the legal health record. It is not the complete legal health record.[facility]
== END 2024-10-21 16:04 | disposition home or self-care (01) ==
PROVIDERS: PCP Nurse Practitioner Family; Visit Provider Nurse Practitioner Family
DX: M54.50 Low back pain, unspecified (principal); Z13.9 Encounter for screening, unspecified

== ENCOUNTER 2024-12-09 08:34 | Outpatient (AMB) | payer BC, SELFPAY ==
[2024-12-09 08:36] VITALS: BP 138/82; PULSE 104; RESP 18; TEMP 36.9; O2SAT 97; BMI 41.0
--- NOTE | 2024-12-09 08:36 | AM.OFFWIN_ITS ---
Intake Vital Signs 12/09/24 08:36 Height 5 ft 9 in Weight 278 lb BMI 41.0 BP 138/82 Blood Pressure Location Lt brachial Position Sitting Respiration 18 Pulse 104 H Pulse Source Pulse Oximeter Temp 98.4 F Temp Source Oral Pulse Oximetry (%) 97 Oxygen Delivery Method Room Air Intake Visit Reasons: EP-blood urine Patient Tobacco Use Status: Current everyday Tobacco user Computer Support Technician Required: No Accompanied by: Self / Same As Patient Allergies SEASONAL ALLERGIES Allergy (Intermediate, Uncoded 11/04/23 11:44) Runny Nose HPI HPI Comments History of Present Illness Details 59 y/o Male patient who presents to the walk in clinic today with c/o Urinary symptoms since Friday. He reports Hematuria, Dysuria, Urgency, Fevers, Chills, and inability to urinate. [facility] Medical History (Updated 12/09/24 @ 09:03 by Leann Chaparro NP) Urinary retention Cystitis Back pain Family history of cardiovascular disease Elevated ferritin HTN (hypertension) High triglycerides ALPHONSE (obstructive sleep apnea) Morbid obesity Nicotine dependence, cigarettes, uncomplicated Fatty liver History of colon polyps (~2018) Osteoarthritis of both knees History of Lyme disease Surgical History History of colonoscopy History of mandibular surgery Family History Father CVD (cardiovascular disease) History of heart attack, Onset Age: 50 Mother No problems noted. Brother No problems noted. Sister No problems noted. Sister No problems noted. Sister No problems noted. 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 [employer] Gender identity: Male Cognitive needs: No Hearing needs: No Vision needs: No Review of Systems Const All systems reviewed & are unremarkable except as noted in HPI and below Physical Exam Vital Signs: Last Vital Signs Temp 98.4 F 12/09/24 08:36 Pulse 104 H 12/09/24 08:36 Resp 18 12/09/24 08:36 BP 138/82 12/09/24 08:36 Pulse Ox 97 12/09/24 08:36 Oxygen Delivery Method Room Air 12/09/24 08:36 BMI result Body Mass Index 41.0 Const General: no acute distress Nutritional Appearance: obese Orientation/consciousness: patient oriented x3 Resp Effort & Inspection: normal respiratory effort Auscultation: clear to auscultation bilaterally Cardio Heart sounds: S1 normal heart sound present and S2 normal heart sound present General: Yes CVA tenderness Back/Spine/Pelvis Back: CVA tenderness and back tenderness Neuro General: patient oriented x3, gait normal and moves all extremities Psych Speech and movement: Normal speech and movement present Results AMB Urinalysis, Automated UA Leukoctes 500 Briana/uL Last Edit by Beatriz Wilson MA on 12/09/24 08 :52 UA Nitrite Positive Last Edit by Beatriz Wilson MA on 12/09/24 08:52 UA Urobilinogen 0.2 mg/dL Last Edit by Beatriz Wilson MA on 12/09/24 0 8:52 UA Protein 100 mg/dL Last Edit by Beatriz Wilson MA on 12/09/24 08:52 UA pH 6.0 Last Edit by Beatriz Wilson MA on 12/09/24 08:52 UA Blood 200 Cristobal/uL Last Edit by Beatriz Wilson MA on 12/09/24 08:52 UA Specific [place] 1.030 Last Edit by Beatriz Wilson MA on 12/09/24 08:52 UA Ketone Positive Last Edit by Beatriz Wilson MA on 12/09/24 08:52 UA Bilirubin 1 mg/dL Last Edit by Beatriz Wilson MA on 12/09/24 08:52 UA Glucose 0 mg/dL Last Edit by Beatriz Wilson MA on 12/09/24 08:52 Results Reviewed Results Reviewed: Laboratory Last Values Urine pH (Auto) 6.0 12/09/24 08:47 Specific [place] (Auto) 1.030 12/09/24 08:47 Urine Protein (Auto) 100 mg/dL 12/09/24 08:47 Glucose (UA)(Auto) 0 mg/dL 12/09/24 08:47 Urine Ketones (Auto) Positive 12/09/24 08:47 Urine Blood (Auto) 200 Cristobal/uL 12/09/24 08:47 Urine Nitrite (Auto) Positive 12/09/24 08:47 Urine Bilirubin (Auto) 1 mg/dL 12/09/24 08:47 Urine Urobilinogen (Auto) 0.2 mg/dL 12/09/24 08:47 Leukocyte Esterase (Auto) 500 Briana/uL 12/09/24 08:47 Assessment & Plan Assessment & Plan (1) Cystitis: Code(s): N30.90 - Cystitis, unspecified without hematuria Plan: Patient's urinalysis is consistent with an acute urinary tract infection. Given his symptoms, will send Abx for 7 days. Urine culture was obtained and sent for C&S. NSAIDs for pain relief. Hydrate well with warm fluids. Orders: Orders AMB Urinalysis Automated Today Z13.9 - Encounter for screening, unspecified UA CC w/rflx Micro + Cult Today N30.90 - Cystitis, unspecified without hematuria Medications: New cefuroxime axetil 500 mg PO BID 14 tabs 0RF 7 days N30.90 - Cystitis, unspecified without hematuria Changed From tamsulosin (Flomax) 0.4 mg PO DAILY 14 caps 0RF R33.9 - Retention of urine, unspecified To tamsulosin (Flomax) 0.4 mg PO DAILY 7 caps 0RF 7 days R33.9 - Retention of urine, unspecified Coding Level of Care Code Est Pt Level 4 (41746) Diagnoses Cystitis N30.90 Time Spent (min) 20
--- OUTSIDE RECORDS SUMMARY | 2024-12-09 09:47 | XMS_ITS | Patient Health Record ---
Author Organization [facility] Address [address] [place] [address] Care Team Providers Care Security Checker Name Role Phone Prabhjot Nunez M.D. Primary Care Provider Sarai januszTimothy Salinas Unavailable [phone] Reason For Referral No Information Medications Medication [...] Problem Status W/U Status Risk Notes Problem [id number] Encounter for screening for malignant neoplasm of colon (Z12.11) Active confirmed Problem [id number] Preprocedural examination (Z01.818) Active confirmed Plan Of Treatment Pending Test Test Name Order Date GI BIOPSY 08/11/2017 Future Test Test Name Order Date COLONOSCOPY 05/22/2017 Insurance Providers Payer Name Payer Address Payer Phone Subscriber Number Group Number Insured Name Patient Relationship to Insured Coverage Start Date Coverage End Date [employer] [address] [place] [id number] HALINA IRENE Self - patient is the insured Medical (General) History Medical History History ICD Code Seasonal allergies Sleep apnea-CPAP Denies DC,DM,CVA,Lung disease,renal dise ase Hx of lyme disease- 2014 HTN Arthritis in his knees--s/p cortisone in jections Surgical History Surgery Date(Month/Year) TMJ/ hx of broken jaw 1985
--- OUTSIDE RECORDS SUMMARY | 2024-12-09 09:47 | XMS_ITS | Clinical Summary ---
Author Organization [facility] Address [address] [place] [address] Phone Care Team Providers Care High School Math Teacher Name Role Phone Unavailable Primary Care Provider [...] It is not the complete legal health record.[facility]
--- OUTSIDE RECORDS SUMMARY | 2024-12-09 09:47 | XMS_ITS | Patient Health Record ---
[facility] [place] Address [address] [place] [address] Care Team Providers Care Pedigree Tracer Name Role Phone Shine Tom Primary Care Provider Unav ailable Zahida Morales Unavailable [phone] Allergies No Known Allergies Reason For Referral [...] Referring Provider Last Name Clara Referred Organization [facility] Referred Provider Zahida Morales Referred Address [address] [place], [place],[address], Referred Provider Specialty Podiatry Referral Priority Routine [...] Problem Acquired hammer toe of right foot ([id number]) Other hammer toe(s) (acquired), right foot (M20.41) Active confirmed Problem Chronic osteomyelitis of ankle and/or foot (382494578) Other chronic osteomyelitis of left foot (M86.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) Active confirmed Problem Localized, primary osteoarthritis of the ankle and/or foot (922729102) Arthritis of joint of lesser toe, right (M19.071) Active confirmed Vital Signs Blood pressure diastolic 80 mm Hg 02/11/2024 Height 5ft9in in 02/11/2024 Blood pressure systolic 137 mm Hg 02/11/2024 Weight 280 lbs 02/11/2024 BMI 41.34 kg/m2 02/11/2024 Encounters Encounter Location Date Provider Diagnosis [address] [address] 12/23/2023 Zahida Morales Pain in right toe(s) M79.674 ; Other hammer toe(s) (acquired), right foot M20.41 ; Arthritis of joint of lesser toe, right M19.071 ; Hallux limitus of right foot M20.5X1 and Other chronic osteomyelitis of left foot M86.[address] [address] 02/11/2024 Zahida Morales Onychomycosis B35.1 ; Other hammer toe(s) (acquired), right foot M20.41 ; Pain in right toe(s) M79.674 ; Pain in left toe(s) M79.675 and Hallux limitus of right foot M20.5X1 [address] [address] 12/23/2023 Zahida Morales Assessments Encounter Date Diagnosis [...] Insured Coverage Start Date Coverage End Date [facility] [address] [place] [address] [id number] Raheem Diaz Self - patient is the insured Medical (General) History Medical History History ICD Code Arthritis High Blood Pressure Chicken pox blood clots Sepsis Hospitalization History Reason Date(Month/Year) Blood Clots in lungs x4 2023 [facility]- septic 08/2023
== END 2024-12-09 09:19 | disposition home or self-care (01) ==
PROVIDERS: PCP Nurse Practitioner Family; Visit Provider Nurse Practitioner Family
DX: N30.90 Cystitis, unspecified without hematuria (principal); Z13.9 Encounter for screening, unspecified

== ENCOUNTER 2024-12-09 08:34 | Outpatient (REF) | payer BC, SELFPAY | END 2024-12-09 08:35 | disposition home or self-care (01) | LOC: HO.LAB 08:34 | PROVIDERS: PCP Nurse Practitioner Family; Visit Provider Nurse Practitioner Family | DX: N30.90 Cystitis, unspecified without hematuria (principal) | CPT/HCPCS: 81003; 87086; 87088; 87186 ==

== ENCOUNTER 2024-12-27 13:08 | Outpatient (AMB) | payer BC, SELFPAY ==
[2024-12-27 13:11] VITALS: BP 170/90; PULSE 97; RESP 16; TEMP 37.3; O2SAT 97; BMI 42.2
--- NOTE | 2024-12-27 13:11 | MHC.PC.OV ---
Vital Signs 12/27/24 13:11 Height 5 ft 9 in Weight 286 lb BMI 42.2 BP 170/90 H Blood Pressure Location Lt brachial Position Sitting Respiration 16 Pulse 97 Pulse Source Pulse Oximeter Temp 99.1 F Temp Source Oral Pulse Oximetry (%) 97 Oxygen Delivery Method Room Air Intake Visit Reasons: med review Radiological Technician Required: No Accompanied by: Self / Same As Patient Allergies SEASONAL ALLERGIES Allergy (Intermediate, Uncoded 11/04/23 11:44) Runny Nose Medication List - Last Reconciled 12/27/24 by RANDALL Iglesias- atorvastatin 20 mg PO BEDTIME blood sugar diagnostic (FreeStyle Lite Strips) Use to check fasting blood sugar and a random blood sugar twice daily blood-glucose meter (FreeStyle Lite Meter kit) Use to check fasting blood sugar and a random blood sugar twice daily celecoxib 200 mg PO BID lancets (FreeStyle Lancets) Use to check fasting blood sugar and a random blood sugar twice daily lisinopril 40 mg PO DAILY metformin 500 mg PO BID tamsulosin (Flomax) 0.4 mg PO DAILY 7 days Tobacco use date assessed: 12/27/24 Dental Screening Dental Screen Date: 09/08/23 HPI med review HPI Details Chief Complaint The patient presents for follow-up management of diabetes. History of Present Illness The patient is a 59-year-old male presenting with diabetes management. He has been managing his diabetes with metformin and dietary modifications, achieving an A1c of 6.0, which is considered well-controlled. He reports symptoms of neuropathy and has been noted to have onychomycosis affecting his toenails. The patient also has a history of hypertension, which is currently managed with an AMADEO inhibitor. His blood pressure has been elevated, prompting the addition of amlodipine to his regimen. He is advised to monitor his blood pressure at home and report the values. The patient is morbidly obese and continues to smoke, which poses additional health risks. He has been referred for a low-dose CT scan as part of a smoking cessation program. Additionally, he is due for an eye exam, and a referral has been made. Social History - Tobacco use: Patient smokes, referred for low-dose CT scan as part of smoking cessation program Health Maintenance - Eye exam referral for diabetes management - Low-dose CT scan for smokers -declined vaccinations today Review of Systems - Neurological: Reports neuropathy, denies headaches, dizziness - Cardiovascular: Denies chest pain, denies shortness of breath - Ophthalmologic: Denies blurred vision Physical Exam General: Cooperative, healthy appearing, comfortable, no acute distress and well developed, morbidly obese Orientation: Patient oriented x3 Limitations: No limitations Head: Normal to inspection Ears: Hearing grossly normal bilaterally Nose: Normal external nose present Face and sinus: Normal facial exam Eyes: Appearance normal, both eyes and all related structures Neck: Normal visual inspection and Yes full ROM Respiratory: Normal respiratory effort and able to speak in complete sentences. Clear to auscultation bilaterally Cardiovascular: Regular rate and rhythm. Normal S1 and S2 GI: Normal to inspection. Soft to palpation and nontender Skin: No rashes or lesions noted Neuro: Patient oriented x3 Extremities: Onychomycosis noted on big toenails, calcium formation to the distal medial aspect bilaterally, positive dorsalis pedis pulse, normal sensation with monofilament testing Results - Labs: A1c 6.0 Plan 1. Diabetes Mellitus The patient's diabetes is currently managed with metformin and dietary modifications, achieving an A1c of 6.0. Continued monitoring and adherence to the current regimen are advised. 2. Hypertension The patient's hypertension is managed with an AMADEO inhibitor, and amlodipine has been added to address elevated blood pressure. Home monitoring of blood pressure is recommended, with follow-up reporting of values. 3. Onychomycosis Onychomycosis is noted, particularly affecting the toenails. Management options were not discussed in detail during this visit. 4. Neuropathy The patient reports neuropathy, which is a known complication of diabetes. Continued monitoring and management are implied, though specific interventions were not detailed in this visit. 5. Obesity The patient is morbidly obese, which contributes to his overall health risk profile. Weight management strategies were not explicitly discussed in this visit. 6. Tobacco Use The patient smokes and has been referred for a low-dose CT scan as part of a smoking cessation program. Further counseling on smoking cessation is recommended. Discussion Notes I discussed with the patient the importance of maintaining his current diabetes management plan, including adherence to metformin and dietary modifications. We reviewed the addition of amlodipine to his hypertension regimen and the need for home blood pressure monitoring. I emphasized the significance of smoking cessation and referred him for a low-dose CT scan. Additionally, I recommended an eye exam to monitor for diabetic retinopathy. Patient Instructions - Continue taking metformin as prescribed and adhere to dietary modifications. - Monitor blood pressure at home and report values. - Attend the scheduled eye exam and low-dose CT scan appointments. - Consider smoking cessation strategies and follow up with the smoking cessation program. [facility] Medical History Urinary retention Cystitis Back pain Family history of cardiovascular disease Elevated ferritin HTN (hypertension) High triglycerides ALPHONSE (obstructive sleep apnea) Morbid obesity Nicotine dependence, cigarettes, uncomplicated Fatty liver History of colon polyps (~2018) Osteoarthritis of both knees History of Lyme disease Surgical History History of colonoscopy History of mandibular surgery Family History Father CVD (cardiovascular disease) History of heart attack, Onset Age: 50 Mother No problems noted. Brother No problems noted. Sister No problems noted. Sister No problems noted. Sister No problems noted. 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 1. Little interest or pleasure in doing things: not at all 2. Feeling down, depressed, or hopeless: not at all 3. Trouble falling or staying asleep, or sleeping too much: not at all 4. Feeling tired or having little energy: not at all 5. Poor appetite or overeating: not at all 6. Feeling bad about yourself - or that you are a failure or have let yourself or your family down: not at all 7. Trouble concentrating on things, such as reading the newspaper or watching television: not at all 8. Moving or speaking so slowly that other people could have noticed. Or the opposite - being so fidgety or restless that you have been moving around a lot more than usual: not at all 9. Thoughts that you would be better off or of hurting yourself in some way: not at all Total score: 0 Depression Screening Interpretation: Negative Depression Screening Done: Yes 03277 - PHQ-9 Billing: Yes Source: Developed by Drs. Timothy Crockett, Harmony Gross, Santosh Kaiser and colleagues, with an educational gerard from [employer]. Thrive Questionnaire Date Thrive assessed: 12/21/24 I am a: Patient What is your living situation today?: I have a steady place to live Within the past 12 months, did the food you bought not last and you didn't have the money to get more?: Never true Within the past 12 months, did you worry whether your food would run out before you got money to buy more?: Never true Do you have trouble paying for medicines?: No Do you have trouble getting transportation to medical appointments?: No Do you have trouble paying your heating and electricity bill?: No Do you have trouble taking care of your child, family member or friend?: No Do you have trouble with day-to-day activities such as bathing, preparing meals, shopping, managing finances, etc.?: No Are you currently unemployed and looking for a job?: No Are you interested in more education?: No Please select the resources that you would like help with: None Currently or been in a relationship where the following occur: No concerns reported THRIVE Score: 0 AUDIT C Alcohol Use Questionnaire (AUDIT-C) 1. How often do you have a drink containing alcohol?: Monthly or less 2. How many drinks containing alcohol do you have on a typical day when you are drinking?: 1 or 2 3. How often do you have six or more drinks on one occasion?: Never Total Score: 1 Score Reviewed/Action Taken: Yes ALEX-7 AMB Questionnaire ALEX-7 Date ALEX - 7 assessed: 12/27/24 Feeling nervous, anxious, or on edge: 0 = Not at all Not being able to stop or control worryin = Not at all Worrying too much about different things: 0 = Not at all Trouble relaxin = Not at all Being so restless that it is hard to sit still: 0 = Not at all Becoming easily annoyed or irritable: 0 = Not at all Feeling afraid as if something awful might happen: 0 = Not at all Total ALEX-7 score (0-4 normal; 5-9 mild; 10-14 moderate; 15-21 severe): 0 Source: Developed by Drs. Timothy Crockett, Harmony Gross, Santosh Kaiser and colleagues, with an educational gerard from [employer]. ALEX-7 Assessment Billing ALEX-7 Assessment Tool: ALEX-7 Assessment 20961 Physical exam (Primary Care) Vital Signs: Last Vital Signs Temp 99.1 F 12/27/24 13:11 Pulse 97 12/27/24 13:11 Resp 16 12/27/24 13:11 BP 170/90 H 12/27/24 13:11 Pulse Ox 97 12/27/24 13:11 Oxygen Delivery Method Room Air 12/27/24 13:11 BMI result Body Mass Index 42.2 Tobacco/Smoking Status: Tobacco use Status Tobacco use date assessed 12/27/24 12/27/24 13:18 Patient Tobacco Use Status Current everyday Tobacco 12/27/24 13:18 Tobacco use type Cigarette 12/27/24 13:18 e-Cigarette/Vaping Use Former Use 12/27/24 13:18 PHQ-9: PHQ-9 Score PHQ-9: Total score 0 12/27/24 13:18 Depression Screening Interpretation: Negative Thrive Assessment: Date of Thrive Assessment Date Thrive assessed 12/21/24 12/27/24 13:18 Currently or been in a relationship where the following occur: No concerns reported Coding Level of Care Code Est Pt Level 3 (78025) Diagnoses Diabetes E11.9 Nicotine dependence, cigarettes, uncomplicated F17.210 Other secondary hypertension I15.8 Hypertension type: other secondary hypertension Additional Codes ALEX-7 Assessment Billing - ALEX-7 Assessment Tool: ALEX-7 Assessment 38329 ([id number]) PHQ-9 - 50562 - PHQ-9 Billing: Yes ([id number]) Assessment & Plan Assessment & Plan (1) Diabetes: Code(s): E11.9 - Type 2 diabetes mellitus without complications Category: Medical (2) Nicotine dependence, cigarettes, uncomplicated: Comment: (current smoker - onset 16yo, 1/2ppd x 41yrs, now 3cig/day, 20pyh) Code(s): F17.210 - Nicotine dependence, cigarettes, uncomplicated Category: Medical (3) HTN (hypertension): Code(s): I10 - Essential (primary) hypertension Category: Medical Qualifiers: Hypertension type: other secondary hypertension Qualified Code(s): I15.8 - Other secondary hypertension Plan . Orders: Orders Comprehensive [place]. Panel Fast Today E11.9 - Type 2 diabetes mellitus without complications UA CC w/rflx Micro + Cult Today E11.9 - Type 2 diabetes mellitus without complications Microalbumin, Random (w Creat) Today E11.9 - Type 2 diabetes mellitus without complications Complete Blood Count Auto Diff Today E11.9 - Type 2 diabetes mellitus without complications TSH reflex Free T4 Today E11.9 - Type 2 diabetes mellitus without complications Lipid Panel Today E11.9 - Type 2 diabetes mellitus without complications Referrals Ophthalmology Referral E11.9 - Type 2 diabetes mellitus without complications Lung Cancer Screening Referral F17.210 - Nicotine dependence, cigarettes, uncomplicated Medications: New amlodipine 5 mg PO DAILY 30 tabs 2RF
--- OUTSIDE RECORDS SUMMARY | 2024-12-27 15:32 | XMS_ITS | Patient Health Record ---
Author Organization [facility] Address [address] [place] [address] Care Team Providers Care Commercial Helicopter Pilot Name Role Phone Prabhjot Nunez M.D. Primary Care Provider Saria januszTimothy Salinas Unavailable [phone] Reason For Referral No Information Medications Medication [...] Problem Status W/U Status Risk Notes Problem [id number] Encounter for screening for malignant neoplasm of colon (Z12.11) Active confirmed Problem 794501000 Preprocedural examination (Z01.818) Active confirmed Plan Of Treatment Pending Test Test Name Order Date GI BIOPSY 08/11/2017 Future Test Test Name Order Date COLONOSCOPY 05/22/2017 Insurance Providers Payer Name Payer Address Payer Phone Subscriber Number Group Number Insured Name Patient Relationship to Insured Coverage Start Date Coverage End Date [employer] [address] [place] [id number] HALINA IRENE Self - patient is the insured Medical (General) History Medical History History ICD Code Seasonal allergies Sleep apnea-CPAP Denies [place],DM,CVA,Lung disease,renal dise ase Hx of lyme disease- 2014 HTN Arthritis in his knees--s/p cortisone in jections Surgical History Surgery Date(Month/Year) TMJ/ hx of broken jaw 1985
--- OUTSIDE RECORDS SUMMARY | 2024-12-27 15:32 | XMS_ITS | Clinical Summary ---
Author Organization [facility] Address [address] [place] [address] Phone Care Team Providers Care Drug Abuse Resistance Education Officer Name Role Phone Unavailable Primary Care Provider [...] It is not the complete legal health record.[facility]
--- OUTSIDE RECORDS SUMMARY | 2024-12-27 15:33 | XMS_ITS | Patient Health Record ---
Author Organization [facility] Lamont killian [place] Address [address] [place] [address] Care Team Providers Care Manager Mutual Fund Name Role Phone Shine Tom Primary Care Provider Unav Zahida Haynes Unavailable [phone] Allergies No Known Allergies Reason For Referral No Information Medications Medication SIG (Take, Route, Fr equency, [...] Problem Acquired hammer toe of right foot ([id number]) Other hammer toe(s) (acquired), right foot (M20.41) Active confirmed Problem Chronic osteomyelitis of ankle and/or foot (867954870) Other chronic osteomyelitis of left foot (M86.672) Active confirmed Problem Localized, primary osteoarthritis of the ankle and/or foot (105863288) Arthritis of joint of lesser toe, right (M19.071) Active confirmed Vital Signs Blood pressure diastolic 80 mm Hg 02/11/2024 Height 5ft9in in 02/11/2024 Blood pressure systolic 137 mm Hg 02/11/2024 Weight 280 lbs 02/11/2024 BMI 41.34 kg/m2 02/11/2024 Encounters Encounter Location Date Provider Diagnosis [facility] [address] [place] [address] 02/11/2024 Zahida Morales Onychomycosis B35.1 ; Other hammer toe(s) (acquired), right foot M20.41 ; Pain in right toe(s) M79.674 ; Pain in left toe(s) M79.675 and Hallux limitus of right foot M20.5X1 Assessments Encounter Date Diagnosis (ICD Code) Assessment Notes Treatment Notes Treatment Clinical Notes Section Notes 02/11/2024 Other hammer toe(s) (acquired), right foot (ICD-10 - M20.41) 02/11/2024 Onychomycosis (ICD-10 - B35.1) 02/11/2024 Pain in right toe(s) (ICD-10 - M79.674) 02/11/2024 Pain in left toe(s) (ICD-10 - M79.675) 02/11/2024 Hallux limitus of right foot (ICD-10 - M20.5X1) Plan Of Treatment Pending Test Test Name Order Date X ray : Foot, right 3V 12/23/2023 Insurance Providers Payer Name Payer Address Payer Phone Subscriber Number Group Number Insured Name Patient Relationship to Insured Coverage Start Date Coverage End Date [facility] [address] [place] [address] [id number] Raheem Diaz Self - patient is the insured Medical (General) History Medical History History ICD Code Arthritis High Blood Pressure Chicken pox blood clots Sepsis Hospitalization History Reason Date(Month/Year) Blood Clots in lungs x4 2023 [facility]- septic 08/2023
== END 2024-12-27 15:55 | disposition home or self-care (01) ==
LOC: HO.HMCC 13:09
PROVIDERS: PCP Nurse Practitioner Family; Visit Provider Nurse Practitioner Family
DX: E11.9 Type 2 diabetes mellitus without complications (principal); F17.210 Nicotine dependence, cigarettes, uncomplicated; I15.8 Other secondary hypertension; Z13.9 Encounter for screening, unspecified

== ENCOUNTER → 2024-12-27 13:08 | Outpatient (BNVA) | payer BC, SELFPAY | PROVIDERS: PCP Nurse Practitioner Family; Visit Provider Nurse Practitioner Family | DX: E11.40 Type 2 diabetes mellitus with diabetic neuropathy, unspecified (principal); I15.8 Other secondary hypertension; E66.01 Morbid (severe) obesity due to excess calories; B35.1 Tinea unguium; F17.210 Nicotine dependence, cigarettes, uncomplicated | CPT/HCPCS: 83036; 96127 ==

== ENCOUNTER 2025-01-04 08:35 | Outpatient (AMB) | payer BC, SELFPAY ==
[2025-01-04 08:45] VITALS: BP 140/72; PULSE 100; TEMP 36.7; O2SAT 95; BMI 42.2
--- NOTE | 2025-01-04 08:45 | AM.OFFWIN_ITS ---
Intake Vital Signs 01/04/25 08:45 Height 5 ft 9 in Weight 286 lb BMI 42.2 BP 140/72 H Blood Pressure Location Lt brachial Position Sitting Pulse 100 Pulse Source Pulse Oximeter Temp 98.1 F Temp Source Oral Pulse Oximetry (%) 95 Oxygen Delivery Method Room Air Intake Visit Reasons: EP Wax build up in ears Patient Tobacco Use Status: Current everyday Tobacco user Allergies Seasonal Allergies Allergy (Mild, Verified 01/04/25 08:51) sinusitis Do you need a note to return to daycare/school/sports/work: No HPI HPI Comments History of Present Illness Details History - The patient is a 59-year-old male pres enting with hearing loss and earwax impaction. - The patient reports using ear drops to soften earwax, which usually resolves the issue, but this time it persisted. - Both ears are impacted with cerumen, l eading to hearing loss, though there is no associated pain. - The patient has been using Debrox drop s to soften the wax, which has been partially effective. - Some improvement in hearing was noted after partial removal of cerumen, but further flushing is required. Physical Exam General: Cooperative, healthy appearing, comfortable, no acute distress and well developed Orientation: Patient oriented x3 Limitations: No limitations Head: Normal to inspection Ears: External ears normal bilaterally, TM's with impacted cerumen bilaterally, some hearing loss noted Face and sinus: Normal facial exam Neck: Normal visual inspection and Yes full ROM Respiratory: Normal respiratory effort and able to speak in complete sentences. Skin: No rashes or lesions noted Neuro: Patient oriented x3 Extremities: normal to inspection Review of Systems - Ears: Reports hearing loss, denies jalen n All systems reviewed and are unremarkable except as noted in HPI [facility] Medical History Urinary retention Cystitis Back pain Family history of cardiovascular disease Elevated ferritin HTN (hypertension) High triglycerides ALPHONSE (obstructive sleep apnea) Morbid obesity Nicotine dependence, cigarettes, uncomplicated Fatty liver History of colon polyps (~2018) Osteoarthritis of both knees History of Lyme disease Surgical History History of colonoscopy History of mandibular surgery Family History Father CVD (cardiovascular disease) History of heart attack, Onset Age: 50 Mother No problems noted. Brother No problems noted. Sister No problems noted. Sister No problems noted. Sister No problems noted. 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 [employer] Gender identity: Male Cognitive needs: No Hearing needs: No Vision needs: No Physical Exam Vital Signs: Last Vital Signs Temp 98.1 F 01/04/25 08:45 Pulse 100 01/04/25 08:45 BP 140/72 H 01/04/25 08:45 Pulse Ox 95 01/04/25 08:45 Oxygen Delivery Method Room Air 01/04/25 08:45 BMI result Body Mass Index 42.2 Office Procedures Cerumen Removal From which ear canal was the cerumen removed: bilateral Removal: irrigation and otoscope w/curette Notes: patient tolerated procedure well, no complications and ear canal clear [id number] Irrigation/Lavage Assessment & Plan Assessment & Plan (1) Impacted cerumen, bilateral: Code(s): H61.23 - Impacted cerumen, bilateral Plan: Plan - Able to scoope out cerumen from both ears but both needed additional flushing for complete removal. Pt with improved hearing s/p removal. - Continue using ear drops to soften cerumen as a preventative measure every 1-2 weeks. - Bilateral EAC's with OE, sent RX to pharmacy Patient was informed and verbally consented to the use of an ambient scribe for clinic note documentation during this visit. (2) Otitis externa: Code(s): H60.90 - Unspecified otitis externa, unspecified ear Qualifiers: Otitis externa type: other infective Chronicity: acute Laterality: bilateral Qualified Code(s): H60.393 - Other infective otitis externa, bilateral Plan: as above Orders: Orders AMB Cerumen Removal Today H61.23 - Impacted cerumen, bilateral Medications: New xfoehdsb-pdblfboyk-UU 3.5-10,000-1 mg/mL-unit/mL-% apply to bilateral ears 4 drps otic (ears) Q8H 20 mL 0RF 7 days Coding Level of Care Code Est Pt Level 4 (32344) Diagnoses Impacted cerumen, bilateral H61.23 Other infective acute otitis externa of both ears H60.393 Otitis externa type: other infective Chronicity: acute Laterality: bilateral CPT Codes Office Procedure - CPT: 42772-Ffy Irrigation/Lavage ([id number])
== END 2025-01-04 09:43 | disposition home or self-care (01) ==
PROVIDERS: PCP Nurse Practitioner Family; Visit Provider Physician Assistant
DX: H60.393 Other infective otitis externa, bilateral (principal); H61.23 Impacted cerumen, bilateral

== ENCOUNTER → 2025-01-04 08:35 | Outpatient (BNVA) | payer BC, SELFPAY | PROVIDERS: PCP Nurse Practitioner Family; Visit Provider Physician Assistant | DX: H61.23 Impacted cerumen, bilateral (principal); H60.393 Other infective otitis externa, bilateral | CPT/HCPCS: 69210 ==

== ENCOUNTER 2025-01-12 09:07 | Emergency (ER) | payer BC, SELFPAY ==
[2025-01-12 09:09] VITALS: BP 185/86; PULSE 102; RESP 18; TEMP 37; O2SAT 98; BMI 46.5
--- NOTE | 2025-01-12 09:13 | ED_ITS ---
HPI - General Adult General Stated complaint: wants to check BP Time Seen by Provider: 01/12/25 09:12 Source: patient Mode of arrival: ambulatory Limitations: no limitations History of Present Illness ED Provider: Mali Dunn PA-C HPI narrative: Patient is a 59 year old assigned male at with a history of DM and HTN presenting to the emergency department today for a blood pressure check. Patient states that he is taking his blood pressure medication as prescribed and has no complaints he just needs his blood pressure checked for his PCP and doesn't own a blood pressure cuff. Patient denies any complaints at this time. Related Data Previous Rx's ?Medication ?Instructions ?Recorded blood sugar diagnostic (FreeStyle #100 ea 11/13/22 Lite Strips) blood-glucose meter (FreeStyle #1 ea 11/13/22 Lite Meter kit) lancets 28 gauge (FreeStyle #100 ea 11/13/22 Lancets) atorvastatin 20 mg tablet 20 mg PO BEDTIME #90 tabs lisinopril 40 mg tablet 40 mg PO DAILY #90 tabs 050 11/15 celecoxib 200 mg capsule 200 mg PO BID #60 caps 09/29 metformin 500 mg tablet 500 mg PO BID #180 tabs 07 amlodipine 5 mg tablet 5 mg PO DAILY #30 tabs 12/27 yhiffnvo-purpsvmxq-wwcpgaoci 3.5 4 drp otic (ears) Q8H 7 days #20 mL 01/04/25 mg-10,000 unit/mL-1 % ear drops,susp Allergies Allergy/AdvReac Type Severity Reaction Status Date / Time Seasonal Allergies Allergy Mild sinusitis Verified 01/12/25 09:13 Review of Systems Constitutional: Constitutional: Reports as per HPI Eyes: Eyes: Reports as per HPI ENT: Reports as per HPI Cardiovascular: Cardiovascular: Reports as per HPI Respiratory: Respiratory: Reports as per HPI Gastrointestinal: Gastrointestinal: Reports as per HPI Genitourinary: Genitourinary: Reports as per HPI Musculoskeletal: Musculoskeletal: Reports as per HPI Integumentary/Breasts: Skin/Breast: Reports as per HPI Neurologic: Reports as per HPI Psychiatric: Psychiatric: Reports as per HPI Endocrine: Endocrine: Reports as per HPI Hematologic/Lymphatic: Hematologic/Lymphatic: Reports as per HPI Allergic/Immunologic: Allergic/Immunologic: Reports as per HPI [facility] Past Medical History Attestation statement: The following information was validated with the patient. Source: old records reviewed and nursing notes reviewed Medical History Urinary retention Cystitis Back pain Family history of cardiovascular disease Elevated ferritin HTN (hypertension) High triglycerides ALPHONSE (obstructive sleep apnea) Morbid obesity Nicotine dependence, cigarettes, uncomplicated Fatty liver History of colon polyps (~2018) Osteoarthritis of both knees History of Lyme disease Surgical History History of colonoscopy History of mandibular surgery Family History Family History Father CVD (cardiovascular disease) History of heart attack, Onset Age: 50 Mother No problems noted. Brother No problems noted. Sister No problems noted. Sister No problems noted. Sister No problems noted. 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 [employer] Gender identity: Male Cognitive needs: No Hearing needs: No Vision needs: No Physical Exam ED Const General: cooperative, no acute distress, alert and awake Nutritional Appearance: well nourished Orientation/consciousness: patient oriented x3 HENMT Head: Yes normal to inspection and Yes atraumatic Ears: hearing grossly normal bilaterally and external ears normal General nose exam: Normal external nose present, no nasal discharge noted and no epistaxis Face and sinus: Yes normal facial exam, No abrasion and No laceration Mouth: Normal oral and palatal mucosa present, no drooling and no muffled voice Eyes General: appearance normal, both eyes and all related structures Periorbital: periorbital findings normal Eyelids: Yes eyelids normal Conjunctivae: conjunctivae normal Pupils: Equal, round and reactive pupils present EOM: EOMs intact bilaterally Neck Neck: Yes normal visual inspection and Yes full ROM Resp Effort & Inspection: normal respiratory effort and able to speak in complete sentences Neuro General: patient oriented x3, moves all extremities and CN's II-XI intact bilaterally Cranial nerves: Yes Equal, round and reactive pupils present Cognition (Neuro): normal cognition Extrem General: Yes normal to inspection, Yes full ROM and Yes capillary refill normal Psych Appearance: grossly normal Mental Status: mental status grossly normal Affect: normal affect Attitude: cooperative Thought process: Normal thought process present Thought content: Normal thought content present Insight: Good insight present (Psych) Medical Decision Making Medical Decision Making MDM Narrative: Patient is a 59 year old assigned male at with a history of DM and HTN presenting to the emergency department today for a blood pressure check. Patient's physical exam was unremarkable. I explained my physical exam findings to the patient. I answered all questions asked by the patient. Patient's blood pressure was checked and entered into his diary by the RN. Patient educated on where to get a blood pressure cuff / get his pressure checked that isn't the ED. I stressed the importance of the patient taking his medication as directed (either prescribed or as the over the counter packaging recommends). I stressed the importance of the patient following up with his primary care provider. I stressed the importance of the patient returning to the emergency department immediately if he were to develop any dizziness, shortness of breath, difficulty breathing, chest pain, blurry vision, loss of vision, nausea, vomiting, abdominal pain, fever, chills, back pain, or any other complaints. Patient verbalized agreement and understanding with this treatment plan and discharge. Differential Diagnosis Differential Diagnoses: The differential diagnosis associated with the presentation includes HTN Blood pressure check Admission/Observation Consideration of admission/observation: Escalation of care including admission/observation considered Patient would have been admitted to the hospital had his clinical presentation warranted hospital admission. Chronic Conditions Patient?s care impacted by: Hypertension Discharge Plan Discharge Clinical Impression: Elevated blood pressure reading Patient Disposition: Home, Self-Care Instructions: Hypertension (ED) Additional Instructions: IF you are prescribed home medications and/or you are taking over the counter medications at home - it is very important you continue to do so as prescribed / directed unless told otherwise. Follow up with your primary care provider. Return to the emergency department immediately if your symptoms worsen or if you develop any numbness, tingling, dizziness, shortness of breath, difficulty breathing, chest pain, blurry vision, loss of vision, nausea, vomiting, abdominal pain, fever, chills, back pain, or any other complaints. Please see the information below about our Patient Portal. If you are not yet enrolled in the [facility] Patient Portal, you will receive an enrollment email invitation following your visit to any [facility] setting. You may also self-enroll in the Patient Portal by visiting our website: [email or web address] The following information is required to access the Patient Portal: - Your [facility] Medical Record Number - Your personal home email address (must match what is in your electronic medical record, Registration staff can assist with this) - Name - Date of Capabilities of the Patient Portal: - Message some providers - View upcoming appointments - Access your health summary, medical history, and visit history - View current conditions and allergies - View procedure and lab results - View your medications, including guidelines, side effects, and precautions - Complete pre-appointment questionnaires requested by your provider - Ready summary reports of your office visits and procedures To access the Patient Portal Mobile Lis, follow these directions: - Search Active Implants in the Lis Store or [employer] Store - Download the Lis - Search for [facility] - Enter your login/password Prescriptions: No Action (DME) blood-glucose meter [FreeStyle Lite Meter] Kit See Rx Instructions .Route Qty: 1 0RF Rx Instructions: Use to check fasting blood sugar and a random blood sugar twice daily (DME) FreeStyle Lite Strips Strip See Rx Instructions .Route Qty: 100 3RF Rx Instructions: Use to check fasting blood sugar and a random blood sugar twice daily (DME) lancets [FreeStyle Lancets] 28 gauge misc See Rx Instructions .Route Qty: 100 3RF Rx Instructions: Use to check fasting blood sugar and a random blood sugar twice daily atorvastatin 20 mg tablet 20 mg PO BEDTIME Qty: 90 1RF lisinopril 40 mg tablet 40 mg PO DAILY Qty: 90 1RF celecoxib 200 mg capsule 200 mg PO BID Qty: 60 3RF metformin 500 mg tablet 500 mg PO BID Qty: 180 1RF amlodipine 5 mg tablet 5 mg PO DAILY Qty: 30 2RF yveeqpto-bklrzxkah-SK 3.5-10,000-1 mg/mL-unit/mL-% drops,suspension 4 drp otic (ears) Q8H 7 Days Qty: 20 0RF Rx Instructions: apply to bilateral ears Referrals: Shine Elizabeth, INTERNAL [employer] [Primary Care Provider, Internal Medicine] Print Language: German
[2025-01-12 09:24] VITALS: BP 185/86; PULSE 102; RESP 18; TEMP 37; O2SAT 98
--- OUTSIDE RECORDS SUMMARY | 2025-01-12 10:36 | XMS_ITS | Patient Health Record ---
Author Organization [facility] Address [address] [place] [address] Care Team Providers Care Renal Social Worker Name Role Phone Prabhjot Nunez M.D. Primary Care Provider Sarai januszTimothy Salinas Unavailable [phone] Reason For Referral No Information Medications Medication [...] Problem Status W/U Status Risk Notes Problem Screening for malignant neoplasm of colon (839178194) Encounter for screening for malignant neoplasm of colon (Z12.11) Active confirmed Problem Preprocedural examination (633172569601205) Preprocedural examination (Z01.818) Active confirmed Plan Of Treatment Pending Test Test Name Order Date GI BIOPSY 08/11/2017 Future Test Test Name Order Date COLONOSCOPY 05/22/2017 Insurance Providers Payer Name Payer Address Payer Phone Subscriber Number Group Number Insured Name Patient Relationship to Insured Coverage Start Date Coverage End Date [employer] [address] [place] [id number] HALINA IRENE Self - patient is the insured Medical (General) History Medical History History ICD Code Seasonal allergies Sleep apnea-CPAP Denies DE,DM,CVA,Lung disease,renal dise ase Hx of lyme disease- 2014 HTN Arthritis in his knees--s/p cortisone in jections Surgical History Surgery Date(Month/Year) TMJ/ hx of broken jaw 1985
--- OUTSIDE RECORDS SUMMARY | 2025-01-12 10:37 | XMS_ITS | Patient Health Record ---
Author Organization [facility] Lamont killian [place] Address [address] [place] [address] Care Team Providers Care Cello Teacher Name Role Phone Shine Tom Primary Care Provider Unav Zahida Haynes Unavailable [phone] Allergies No Known Allergies Reason For Referral [...] Problem Acquired hammer toe of right foot (3746370070249653) Other hammer toe(s) (acquired), right foot (M20.41) Active confirmed Problem Chronic osteomyelitis of ankle and/or foot (736990661) Other chronic osteomyelitis of left foot (M86.672) Active confirmed Problem Localized, primary osteoarthritis of the ankle and/or foot (878552249) Arthritis of joint of lesser toe, right (M19.071) Active confirmed Vital Signs Blood pressure diastolic 80 mm Hg 02/11/2024 Height 5ft9in in 02/11/2024 Blood pressure systolic 137 mm Hg 02/11/2024 Weight 280 lbs 02/11/2024 BMI 41.34 kg/m2 02/11/2024 Encounters Encounter Location Date Provider Diagnosis [facility] [address] [place] [address] 02/11/2024 Zahida Morales Onychomycosis B35.1 ; Other [...] Insured Coverage Start Date Coverage End Date [facility] [address] [place] [address] [id number] Raheem Diaz Self - patient is the insured Medical (General) History Medical History History ICD Code Arthritis High Blood Pressure Chicken pox blood clots Sepsis Hospitalization History Reason Date(Month/Year) Blood Clots in lungs x4 2023 [facility]- septic 08/2023
== END 2025-01-12 09:24 | disposition home or self-care (01) ==
PROVIDERS: Emergency Provider Emergency Medicine; PCP Nurse Practitioner Family
DX: I10 Essential (primary) hypertension (principal); E11.9 Type 2 diabetes mellitus without complications; Z79.899 Other long term (current) drug therapy; F17.210 Nicotine dependence, cigarettes, uncomplicated; Z79.84 Long term (current) use of oral hypoglycemic drugs
CPT/HCPCS: 99282

== ENCOUNTER 2025-03-04 11:45 | Outpatient (AMB) | payer BC, SELFPAY ==
--- NOTE | 2025-03-04 11:53 | A.OFFVIS_ITS ---
Intake Visit Reasons: OV- B/L knee pain Intake Note: Raheem is a 59 year old male who presents today for a follow up of his Bilateral Knee OA. Bilateral Knee injections administered 12/01/23. Patient reports injections provided him with relief until recently. He does not want to continue taking celebrex due to kidney concerns. He is requesting to repeat injections. He performs at home exercises and uses Tylenol as needed. Allergies Seasonal Allergies Allergy (Mild, Verified 03/04/25 12:06) sinusitis Medication List - Last Reconciled 03/04/25 by ALEX Kendall-Tena amlodipine 5 mg PO DAILY atorvastatin 20 mg PO BEDTIME blood sugar diagnostic (FreeStyle Lite Strips) Use to check fasting blood sugar and a random blood sugar twice daily blood-glucose meter (FreeStyle Lite Meter kit) Use to check fasting blood sugar and a random blood sugar twice daily celecoxib 200 mg PO BID lancets (FreeStyle Lancets) Use to check fasting blood sugar and a random blood sugar twice daily lisinopril 40 mg PO DAILY metformin 500 mg PO BID oubsgkno-mjnvlriyx-CQ 3.5-10,000-1 mg/mL-unit/mL-% 4 drps otic (ears) Q8H 7 days HPI HPI OV- B/L knee pain: Details: 59-year-old gentleman returns to the office today for a follow up bilateral knee pain. He was last seen by me are on 12/01/2023 where he had bilateral knees injected. He states the injections were quite helpful and lasted up until recently. Had this time he continues to have discomfort with activities including stair climbing and walking long distances. He has had gel injections in the past which he states were helpful. [facility] Medical History Urinary retention Cystitis Back pain Family history of cardiovascular disease Elevated ferritin HTN (hypertension) High triglycerides ALPHONSE (obstructive sleep apnea) Morbid obesity Nicotine dependence, cigarettes, uncomplicated Fatty liver History of colon polyps (~2018) Osteoarthritis of both knees History of Lyme disease Surgical History History of colonoscopy History of mandibular surgery Family History Father CVD (cardiovascular disease) History of heart attack, Onset Age: 50 Mother No problems noted. Brother No problems noted. Sister No problems noted. Sister No problems noted. Sister No problems noted. 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 Tenderness along the medial and lateral joint line. Full ROM with crepitus. Negative Devonte?s. No ligamentous laxity. NVI. ? Office Procedures AMB Joint Injection/Aspiration Joint Injection/Aspiration Primary Site: Right Knee Secondary Site: Left Knee Prep: site was prepped using aseptic technique, ethochloride spray was applied and injection warnings given Injected: 40 mg of, Decadron, with 3 mL of, 1% plain Lidocaine, 0.25% Bupivacaine and in the joint Approach Used: anterolateral Procedure: The patient tolerated the procedure well and there was some relief with the local anesthesia Coding 10612 - Glenohumeral/Tronchanteric Bursa/Intraarticular Procedure code (CPT) selection complete Assessment & Plan Assessment & Plan (1) Osteoarthritis of right knee: Code(s): M17.11 - Unilateral primary osteoarthritis, right knee Category: Medical Plan We discussed options today, which include steroid injection. The patient did consent to move forward with the bilateral knee injection, which was tolerated well. I recommended rest, ice, and elevation and OTC anti-inflammatories as needed for discomfort. If symptoms persist or worsen over the next 6-8 weeks, patient will contact the office, otherwise follow-up as needed. ? Coding Level of Care Code Est Pt Level 3 (84767) Add On Problem Visit Only Diagnoses Osteoarthritis of right knee M17.11 CPT Codes Coding - Joint 7: 41257 - Glenohumeral/Tronchanteric Bursa/Intraarticular ([id number])
== END 2025-03-04 12:54 | disposition home or self-care (01) ==
LOC: HO.HOS 11:46
PROVIDERS: PCP Nurse Practitioner Family; Visit Provider Physician Assistant
DX: M17.11 Unilateral primary osteoarthritis, right knee (principal)
CPT/HCPCS: 20610; 99213

== ENCOUNTER → 2025-03-04 11:45 | Outpatient (BNVA) | payer BC, SELFPAY | PROVIDERS: PCP Nurse Practitioner Family; Visit Provider Physician Assistant | DX: M17.11 Unilateral primary osteoarthritis, right knee (principal) | CPT/HCPCS: 20610; J0665; J1100; J2003 ==